=== PATIENT | female | born 1950 | race Caucasian/White ===

== ENCOUNTER → 2016-10-27 | Outpatient (CLI) | payer MEDICARE, OTHER ==
--- NOTE | 2016-10-27 10:10 | XR ---
EXAM TYPE: LUMBAR SPINE X RAY SERIES COMPARISON: 03/20/2010 HISTORY: Sciatica TECHNIQUE: 4 views are submitted. FINDINGS: Alignment is anatomic. The pedicles are intact. The transverse processes are intact. There is no s pondylolysis or spondylolisthesis. There is a minimal anterolisthesis of L3 on L4. There is facet ar thropathy at levels L3-S1. Mild multilevel degenerative disc disease. Endplate deformity of L2 appear s chronic. Slight curvature of the spine. IMPRESSION: 1. Multilevel facet arthropathy and degenerative disc disease. Recommend follow-up MRI. There is a mi nimal anterolisthesis of L3 relative to L4 likely degenerative..
== END | disposition home or self-care (01) ==
LOC: RADXRMAIN 09:38
PROVIDERS: ATTEND Family Medicine
DX: M47.817 Spondylosis without myelopathy or radiculopathy, lumbosacral region (principal); M51.36 Other intervertebral disc degeneration, lumbar region
CPT/HCPCS: 72110

== ENCOUNTER → 2016-12-10 | Outpatient (CLI) | payer MEDICARE, OTHER ==
--- NOTE | 2016-12-10 14:25 | MR ---
EXAMINATION TYPE: MR lumbar spine wo con DATE OF EXAM: 12/10/2016 1:38 PM COMPARISON: NONE HISTORY: 58-year-old female LBP, right hip pain, fell 3 weeks ago TECHNIQUE: Multiplanar, multisequence images of the lumbar spine were acquired. FINDINGS: Vertebral body heights are preserved and alignment is maintained. Mild heterogeneity of marrow signal without suspicious bone marrow replacement. There is minimal fatt y Modic type II endplate change towards the left anteriorly at T12-L1. Conus medullaris is normal. There is variable disc desiccation throughout with bulging discs in the mid to lower lumbar spine. A tiny posterior annular fissure central, right paracentral location at L4-L5. There is some ligamentum flavum thickening in the lower lumbar spine with facet arthropathy. At T12-L1, no canal or foraminal stenosis. At L1-L2, no canal or foraminal stenosis. At L2-L3, mild facet degenerative change without canal or foraminal stenosis. At L3-L4, there is facet degenerative change, ligamentum flavum thickening, a 5 mm ligamentum flavum cyst on the left, and mild diffuse disc bulge. Changes result in mild left neuroforaminal stenosis wi thout significant spinal canal stenosis. At L4-L5, ligamentum flavum thickening with facet arthropathy and bulging disc. There is mild ventral impression on the thecal sac without significant spinal canal stenosis. There is mild right greater than left neuroforaminal stenosis. At L5-S1, facet degenerative change and bulging disc. No significant canal or foraminal stenosis. No prevertebral or paravertebral soft tissue abnormality. 1.8 cm benign cyst posterior right kidney. IMPRESSION: 1. Mild multilevel degenerative disc disease. There is variable disc desiccation and disc bulging saleem ecially in the mid to lower lumbar spine. Tiny posterior annular fissure at L4-L5. 2. Additional facet arthropathy lower lumbar spine with ligamentum flavum thickening. 3. There is no focal disc herniation or significant spinal canal stenosis. 4. Mild left neuroforaminal stenosis at L3-L4 and mild bilateral, right greater than left, neuroforam inal stenosis at L4-L5.
== END | disposition home or self-care (01) ==
LOC: RADMRIMAIN 12:54
PROVIDERS: ATTEND Family Medicine
DX: M99.73 Connective tissue and disc stenosis of intervertebral foramina of lumbar region (principal); M51.27 Other intervertebral disc displacement, lumbosacral region; M51.36 Other intervertebral disc degeneration, lumbar region; M46.96 Unspecified inflammatory spondylopathy, lumbar region; M24.28 Disorder of ligament, vertebrae
CPT/HCPCS: 72148

== ENCOUNTER → 2017-05-19 | Outpatient (CLI) | payer MEDICARE, OTHER ==
--- NOTE | 2017-05-19 13:22 | US ---
EXAMINATION TYPE: US kidneys/renal and bladder DATE OF EXAM: 05/19/2017 COMPARISON: NONE CLINICAL HISTORY: R32 Urinary incontinence. EXAM MEASUREMENTS: Right Kidney: 11.2 x 3.9 x 4.5 cm Left Kidney: 10.8 x 4.6 x 4.7 cm Post Void Residual Volume: 43 mL incidental left lobe liver cyst 0.8 x 0.7 x 0.8 cm Right Kidney: small posterior cyst 1.1 x 1.1 x 1.3 cm Left Kidney: No hydronephrosis or masses seen Bladder: wnl Bilateral Jets seen: rt Normal Post Void Residual: Yes There is no evidence for hydronephrosis at this point in time. No nephrolithiasis is seen. No hugo s are identified. The urinary bladder is anechoic. Bilateral ureteral jets are seen. IMPRESSION: 1. No evidence of hydronephrosis or nephrolithiasis. Normal post void urinary bladder residual 43 mL. 2. Simple appearing hepatic cyst and renal cyst.
== END | disposition home or self-care (01) ==
LOC: RADUSWWP 12:38
PROVIDERS: ATTEND Family Medicine
DX: R32 Unspecified urinary incontinence (principal)
CPT/HCPCS: 76770

== ENCOUNTER → 2017-12-26 | Outpatient (CLI) | payer MEDICARE, OTHER ==
--- NOTE | 2017-12-26 15:25 | BD ---
EXAMINATION TYPE: Axial Bone Density DATE OF EXAM: 12/26/2017 COMPARISON: NONE CLINICAL HISTORY: post menopausal Height: 4'11 Weight: 148 FRAX RISK QUESTIONS: Family History (Parent hip fracture): y Secondary Osteoporosis: Current Tobacco Use: y RISK FACTORS HISTORY OF: Postmenopausal woman: MEDICATIONS: Thyroid Medications: Which medication: Levothyroxine How Lon years Additional Medications: cholesterol, bipolar, benzopene Additional History: EXAM MEASUREMENTS: Bone mineral densitometry was performed using the [employer] System. Bone mineral density as measured about the Lumbar spine is: ----- L1-L4(G/cm2): 0.886 T Score Values are as follows: ----- L2: -3.2 ----- L3: -2.6 ----- L4: -1.6 ----- L1-L4: -2.4 Bone mineral density about the R hip (g/cm2): 0.752 Bone mineral density about the L hip (g/cm2): 0.751 T Score values are as follows: -----R Neck: -2.1 -----L Neck: -2.1 -----R Total: -1.7 -----L Total: -2.0 IMPRESSION: Osteopenia in the lumbar spine (T Score between -2.5 and -1). There is slightly increased risk of fracture and the patient may be considered for treatment. Re-Screen 2-5 years. NOTE: T-SCORE=SD OF THE YOUNG ADULT MEAN.
== END | disposition home or self-care (01) ==
LOC: RADBDWWP 13:08
PROVIDERS: ATTEND Family Medicine
DX: M85.88 Other specified disorders of bone density and structure, other site (principal); Z78.0 Asymptomatic menopausal state
CPT/HCPCS: 77080

== ENCOUNTER 2018-05-28 12:24 | Inpatient (IN) | payer MEDICARE, OTHER ==
[2018-05-28] MEDS ORDERED: IPRATROPIUM-ALBUTEROL 3 ML NEB INHALATION STA (12:57)
[2018-05-28] MEDS ORDERED: methylPREDNISolone SOD SUCCI 125 MG/2 ML VIAL IV STA (12:57)
--- NOTE | 2018-05-28 13:33 | ED ---
General Adult HPI - General Chief complaint: Shortness of Breath Stated complaint: SOB from [facility] Time Seen by Provider: 05/28/18 12:34 Source: patient, RN notes reviewed, old records reviewed Mode of arrival: wheelchair Limitations: no limitations - History of Present Illness Initial comments: This is a 67-year-old female sent emergency Department chief complaint shortness of breath. She has been sick for 1 week. Patient states that she's had a cough, shortness of breath. She does have COPD. Patient states that she was seen at [facility] and sent here. She did have an x-ray but does not know the results. Patient states that her was sick with some symptoms was treated with antibiotics and steroids and has improved. Patient denies any chest pain. Patient has a nausea vomiting diarrhea constipation. - Related Data Home Medications Medication Instructions Recorded Confirmed Benztropine Mesylate 1 mg PO TID PRN 05/10/17 05/28/18 Divalproex Sodium [Depakote] 1,000 mg PO HS 05/10/17 05/28/18 LORazepam [Ativan] 1 mg PO HS 05/10/17 05/28/18 Simvastatin [Zocor] 20 mg PO HS 05/10/17 05/28/18 Vit C/E/Zn/Coppr/Lutein/Zeaxan 1 cap PO BID 05/10/17 05/28/18 [Preservision Areds 2 Softgel] ARIPiprazole [Abilify] 10 mg PO HS 05/28/18 05/28/18 Aspirin EC [Ecotrin Low Dose] 81 mg PO DAILY 05/28/18 05/28/18 Calcium Carbonate [Calcium] 600 mg PO DAILY 05/28/18 05/28/18 Cholecalciferol [Vitamin D3] 5,000 unit PO DAILY 05/28/18 05/28/18 Allergies Allergy/AdvReac Type Severity Reaction Status Date / Time azithromycin [From Zithromax] Allergy Rash/Hives Verified 05/28/18 13:20 codeine Allergy Unknown Verified 05/28/18 13:15 diphenhydramine Allergy Confusion Verified 05/28/18 13:15 [From Benadryl] erythromycin base Allergy Rash/Hives Verified 05/28/18 13:15 sodium Allergy Unknown Verified 05/28/18 13:15 Review of Systems ROS Statement: Those systems with pertinent positive or pertinent negative responses have been documented in the HPI. ROS Other: All systems not noted in ROS Statement are negative. Past Medical History Past Medical History: Hyperlipidemia, Thyroid Disorder History of Any Multi-Drug Resistant Organisms: None Reported Past Surgical History: Appendectomy, Hysterectomy Past Psychological History: Anxiety, Bipolar, Depression Smoking Status: Current every day smoker Past Alcohol Use History: None Reported Past Drug Use History: None Reported General Exam Limitations: no limitations General appearance: alert, in no apparent distress Head exam: Present: atraumatic, normocephalic, normal inspection Eye exam: Present: normal appearance, PERRL, EOMI. Absent: scleral icterus, conjunctival injection, periorbital swelling ENT exam: Present: normal exam, normal oropharynx, mucous membranes moist, TM's normal bilaterally, normal external ear exam Neck exam: Present: normal inspection. Absent: tenderness, meningismus, lymphadenopathy Respiratory exam: Present: wheezes, decreased breath sounds. Absent: normal lung sounds bilaterally, respiratory distress, rales, rhonchi, stridor Cardiovascular Exam: Present: regular rate, normal rhythm, normal heart sounds. Absent: systolic murmur, diastolic murmur, rubs, gallop, clicks Neurological exam: Present: alert, oriented X3, CN II-XII intact, reflexes normal. Absent: motor sensory deficit Skin exam: Present: warm, dry, intact, normal color. Absent: rash Course Vital Signs 05/28/18 05/28/18 05/28/18 12:26 13:36 13:49 Temperature 98.5 F Pulse Rate 73 78 84 Respiratory 18 Rate Blood Pressure 108/69 O2 Sat by Pulse 94 L Oximetry EKG Findings - EKG Comments: EKG Findings:: EKG performed at 13:51 normal sinus rhythm with rate 80 WV 138 QRS 90 QT/QTC 376/433 Medical Decision Making - Lab Data Result diagrams: 05/28/18 13:35 Lab Results 05/28/18 05/28/18 05/28/18 Range/Units 13:35 13:35 13:35 PT 10.7 (9.0-12.0) sec INR 1.1 (<1.2) APTT 22.4 (22.0-30.0) sec Sodium 139 (137-145) mmol/L Potassium 3.9 (3.5-5.1) mmol/L Chloride 103 (98-107) mmol/L Carbon Dioxide 27 (22-30) mmol/L Anion Gap 9 mmol/L BUN 14 (7-17) mg/dL Creatinine 0.58 (0.52-1.04) mg/dL Est GFR (CKD-EPI)AfAm >90 (>60 ml/min/1.73 sqM) Est GFR (CKD-EPI)NonAf >90 (>60 ml/min/1.73 sqM) Glucose 90 (74-99) mg/dL Calcium 9.3 (8.4-10.2) mg/dL Magnesium 2.1 (1.6-2.3) mg/dL Total Bilirubin 0.4 (0.2-1.3) mg/dL AST 23 (14-36) U/L ALT 36 (9-52) U/L Alkaline Phosphatase 49 (38-126) U/L Total Creatine Kinase 56 (30-135) U/L CK-MB (CK-2) 1.4 (0.0-2.4) ng/mL CK-MB (CK-2) Rel Index 2.5 Troponin I <0.012 (0.000-0.034) ng/mL Total Protein 6.2 L (6.3-8.2) g/dL Albumin 3.4 L (3.5-5.0) g/dL Disposition Clinical Impression: Bilateral pneumonia, COPD (chronic obstructive pulmonary disease) Disposition: ADMITTED IP TO THIS HOSP Condition: Fair Referrals: None,Stated [Primary Care Provider] - 1-2 days
[2018-05-28 14:14] LABS: INR 1.1 (<1.2); Partial Thromboplastin Time 22.4 sec (22.0-30.0); Prothrombin Time 10.7 sec (9.0-12.0)
[2018-05-28 14:16] LABS: ALT 36 U/L (9-52); AST 23 U/L (14-36); Albumin 3.4 g/dL (3.5-5.0); Alkaline Phosphatase 49 U/L (38-126); Anion Gap 9 mmol/L; Blood Urea Nitrogen 14 mg/dL (7-17); Calcium 9.3 mg/dL (8.4-10.2); Carbon Dioxide 27 mmol/L (22-30); Chloride 103 mmol/L (98-107); Glucose 90 mg/dL (74-99); Magnesium 2.1 mg/dL (1.6-2.3); Potassium 3.9 mmol/L (3.5-5.1); Sodium 139 mmol/L (137-145); Total Bilirubin 0.4 mg/dL (0.2-1.3); Total Protein 6.2 g/dL (6.3-8.2)
--- NOTE | 2018-05-28 14:24 | XR ---
EXAMINATION TYPE: XR chest 2V DATE OF EXAM: 05/28/2018 COMPARISON: 05/10/2017 HISTORY: Cough TECHNIQUE: Frontal and lateral views of the chest are obtained. FINDINGS: There is patchy interstitial linear infiltrate in the lower lung wall. There is no heart failure. Heart size is normal. There is slight blunting of the costophrenic angles. IMPRESSION: Increasing interstitial infiltrates and atelectasis at the lung bases compared to last e xam. Small pleural effusions appear new. No heart failure.
[2018-05-28 14:25] LABS: Creatine Kinase 56 U/L (30-135)
[2018-05-28 14:39] LABS: Creatine Kinase MB 1.4 ng/mL (0.0-2.4); Troponin I <0.012 ng/mL (0.000-0.034)
[2018-05-28] MEDS ORDERED: LEVOFLOXACIN 750MG-D5W PMX 750 MG in DEXTROSE/WATER 1 150ML.BAG IVPB STA (14:56)
[2018-05-28] MEDS ORDERED: ALBUTEROL NEBULIZED 2.5 MG/3 ML INHALATION PRN (14:57)
[2018-05-28] MEDS ORDERED: PNEUMONIA PROTOCOL UTILIZED 1 EACH MISC PO PRN (14:57)
[2018-05-28 16:46] VITALS: BMI 28.4
[2018-05-28 16:55] LABS: Glucose,Whole Blood 204 mg/dL (75-99)
--- NOTE | 2018-05-28 17:46 | P.HPIM ---
History of Present Illness H&P Date: 05/28/18 Chief Complaint: Shortness of breath and cough Ms. Grider is a 67-year-old female with a past medical history of hypertension , hyperlipidemia, COPD, thyroid disorder, bipolar disorder, anxiety coming into the hospital with a chief complaint of cough and difficulty in breathing ongoing for the past 4 days. Patient states that she has been feeling hot and cold for the past 3-4 days on and off. She complains of increased cough with increased sputum and difficulty in breathing. Patient has history of frequent urinary tract infections in the past and she noticed change in the color of her urine 3 days back. She states it was pink in color and had increased frequency of urination. Patient has been taking Macrobid at home. This morning patient was having more difficulty in breathing and felt like she had a fever so went to get checked out in the clinic and they suggested her to go to the ER. In the ER patient had a chest x-ray showing bilateral infiltrates and she has been admitted for pneumonia and further management. Patient denies having any chest pain. No palpitations. No loss of consciousness. No headaches or blurring of vision. No focal weakness. No seizure-like activity. She denies having any abdominal pain nausea vomiting or diarrhea. Review of Systems REVIEW OF SYSTEMS: CONSTITUTIONAL: Fever with some chills PSYCH: Positive for history of bipolar disorder and anxiety NEURO:No c/o weakness of the extremties, No facial droop, No speech abnormalities. VASCULAR: Peripheral nervous system within the normal limits no edema HEMATOLOGIC: No history of easy bleeding and bruising . No recent infections . RESPIRATORY: As per HPI IMMUNE: No infections INTEGUMENT: no rashes OPHTHALMOLOGIC: No blurry vision and no eye discharge : No dysuria or hematuria COUNTERPERSON: No bleeding PV CARDIAC: No chest pain , paroxysmal nocturnal dyspnea or orthopnea MUSCULOSKELETAL : No Aches or pains in the joints or muscles. GI: No abdominal pain, Nausea or vomiting. No constipation or diarrhea. 13 review of systems are negative except for the ones mentioned above. Past Medical History Past Medical History: COPD, Hyperlipidemia, Thyroid Disorder Additional Past Medical History / Comment(s): IBS History of Any Multi-Drug Resistant Organisms: None Reported Past Surgical History: Appendectomy, Hysterectomy Past Psychological History: Anxiety, Bipolar, Depression Smoking Status: Current every day smoker Past Alcohol Use History: None Reported Past Drug Use History: None Reported - Past Family History Father Family Medical History: Pulmonary Embolus Additional Family Medical History / Comment(s): at age of 40 in [place] Mother Family Medical History: Dementia Additional Family Medical History / Comment(s): at age 87, possible breast CA. Sister(s) Family Medical History: Cancer Additional Family Medical History / Comment(s): at age 73 of leukemia; other sister has had brain surgery and migraines; other sister has IBS and thyroid disorder. Brother(s) Family Medical History: Diabetes Mellitus Additional Family Medical History / Comment(s): other brother has DM as well. Medications and Allergies Home Medications Medication Instructions Recorded Confirmed Type Divalproex Sodium [Depakote] 1,000 mg PO HS 05/10/17 05/28/18 History RX: Benztropine Mesylate 1 mg PO TID PRN 05/10/17 05/28/18 History RX: LORazepam [Ativan] 1 mg PO HS 05/10/17 05/28/18 History Simvastatin [Zocor] 20 mg PO HS 05/10/17 05/28/18 History Vit C/E/Zn/Coppr/Lutein/Zeaxan 1 cap PO BID 05/10/17 05/28/18 History [Preservision Areds 2 Softgel] ARIPiprazole [Abilify] 10 mg PO HS 05/28/18 05/28/18 History Aspirin EC [Ecotrin Low Dose] 81 mg PO DAILY 05/28/18 05/28/18 History Calcium Carbonate [Calcium] 600 mg PO DAILY 05/28/18 05/28/18 History Cholecalciferol [Vitamin D3] 5,000 unit PO DAILY 05/28/18 05/28/18 History Allergies Allergy/AdvReac Type Severity Reaction Status Date / Time azithromycin [From Zithromax] Allergy Rash/Hives Verified 05/28/18 13:20 codeine Allergy Unknown Verified 05/28/18 13:15 diphenhydramine Allergy Confusion Verified 05/28/18 13:15 [From Benadryl] erythromycin base Allergy Rash/Hives Verified 05/28/18 13:15 sodium Allergy Unknown Verified 05/28/18 13:15 Physical Exam Vitals: Vital Signs Temp Pulse Pulse Resp BP BP Pulse Ox 05/28/18 16:40 98.7 F 87 16 106/65 92 L 05/28/18 15:45 82 18 116/70 95 05/28/18 14:57 87 16 92 L 05/28/18 14:00 86 16 106/62 95 05/28/18 13:49 84 05/28/18 13:36 78 05/28/18 12:26 98.5 F 73 18 108/69 94 L Intake and Output 05/28/18 05/28/18 05/28/18 06:59 14:59 22:59 Other: Weight 67.132 kg 67.132 kg GEN. APPEARANCE: alert, in no apparent distress HEAD EXAM: atraumatic, normocephalic, normal inspection EYE EXAM: No pallor or icterus ENT EXAM: normal exam, mucous membranes moist NECK EXAM: No thyromegaly or lymphadenopathy RESPIRATORY EXAM: Coarse breath sounds in all lung wall. No wheezing. CARDIOVASCULAR EXAM: regular rate, normal rhythm, normal heart sounds. Absent : systolic murmur, diastolic murmur, rubs, gallop, clicks GI/ABDOMINAL EXAM: soft, normal bowel sounds. Absent: distended, tenderness, guarding, rebound, rigid EXTREMITIES EXAM: normal inspection, full ROM, normal capillary refill. Absent : tenderness, pedal edema, joint swelling, calf tenderness NEUROLOGICAL EXAM: alert, oriented X3, no focal neurological deficits PSYCHIATRIC EXAM: normal affect, normal mood SKIN EXAM: warm, dry, intact, normal color. Absent: rash Results CBC & Chem 7: 05/28/18 13:35 Labs: Abnormal Lab Results - Last 24 Hours (Table) 05/28/18 05/28/18 Range/Units 13:35 16:53 POC Glucose (mg/dL) 204 H (75-99) mg/dL Total Protein 6.2 L (6.3-8.2) g/dL Albumin 3.4 L (3.5-5.0) g/dL Thrombosis Risk Factor Assmnt - Choose All That Apply Each Factor Represents 1 point: Abnormal pulmonary function (COPD) Other Risk Factors: Yes Each Risk Factor Represents 2 Points: Age 61-74 years Other congenital or acquired thrombophilia - If yes, enter type in comment: No Thrombosis Risk Factor Assessment Total Risk Factor Score: 3 Thrombosis Risk Factor Assessment Level: Moderate Risk Assessment and Plan Assessment: ASSESSMENT Bilateral pneumonia Acute exacerbation of COPD -secondary to above Possible urinary tract infection Hypertension Hyperlipidemia Thyroid disorder Anxiety with depression Bipolar disorder PLAN: Patient has been started on IV levofloxacin which will be continued as it will cover both have pneumonia and UTI. Breathing treatments ordered. Awaiting sputum cultures. As the patient did not have a CBC done in the ER and will check it. Patient resumed on her home medications. The treatment plan was discussed with the patient and her daughter at the bedside in detail. Further recommendations to follow depending on the progress of the patient.
[2018-05-28] MEDS: HEPARIN SODIUM,PORCINE 5,000 UNIT/ML 1 ML VIAL SQ SCH ×2 (18:06→23:37)
[2018-05-28] MEDS: VIT A,C & E-LUTEIN-MINERALS 1 EACH TAB PO SCH (18:06)
[2018-05-28] MEDS: INSULIN ASPART 100 UNIT/ML 1 ML 10 ML VIAL SQ SCH ×2 (18:07→21:16)
[2018-05-28 18:17] LABS: Basophils % (A) 0 %; Eosinophils # (A) 0.2 k/uL (0-0.7); Eosinophils % (A) 3 %; HCT 35.5 % (34.0-46.0); HGB 11.9 gm/dL (11.4-16.0); Lymphocytes # (A) 0.7 k/uL (1.0-4.8); Lymphocytes % (A) 8 %; MCH 31.3 pg (25.0-35.0); MCHC 33.5 g/dL (31.0-37.0); MCV 93.6 fL (80.0-100.0); Mean Platelet Volume 7.7; Monocytes # (A) 0.2 k/uL (0-1.0); Monocytes % (A) 3 %; Neutrophils # (A) 6.6 k/uL (1.3-7.7); Neutrophils % (A) 85 %; Platelet Count 210 k/uL (150-450); RBC 3.79 m/uL (3.80-5.40); RDW 12.9 % (11.5-15.5); WBC 7.8 k/uL (3.8-10.6)
[2018-05-28 19:35] LABS: Appearance,Urine Clear (Clear); Bilirubin,Urine Negative (Negative); Blood,Urine Negative (Negative); Color,Urine Yellow; Glucose,Urine (UA) 1+ (Negative); Ketones,Urine 1+ (Negative); Leukocyte Esterase,Urine Negative (Negative); Nitrite,Urine Negative (Negative); PH, Urine 5.5 (5.0-8.0); Protein,Urine Negative (Negative); Specific Gravity,Urine 1.009 (1.001-1.035); Urobilinogen,Urine <2.0 mg/dL (<2.0)
[2018-05-28] MEDS: ATORVASTATIN 10 MG TAB PO SCH (21:16)
[2018-05-28] MEDS: LORazepam 1 MG TAB PO SCH (21:16)
[2018-05-28] MEDS: DIVALPROEX 500 MG TABLET.DR PO SCH (21:16)
[2018-05-28] MEDS: ARIPiprazole 10 MG TAB PO SCH (21:16)
[2018-05-28 21:19] LABS: Glucose,Whole Blood 201 mg/dL (75-99)
[2018-05-29 07:13] LABS: Glucose,Whole Blood 214 mg/dL (75-99)
--- NOTE | 2018-05-29 08:11 | XR ---
EXAMINATION TYPE: XR chest 2V DATE OF EXAM: 05/29/2018 COMPARISON: 05/28/2018 HISTORY: 67-year-old female follow-up pneumonia TECHNIQUE: Frontal and lateral views FINDINGS: Heart normal size. Atherosclerotic arch calcifications. Strandy lower lung opacities on the right lik julissa atelectasis. Patchy opacity at the left base is increasing. Trace pleural effusions. IMPRESSION: Increasing consolidation left base suspicious for pneumonia. Trace pleural effusions persist. Opacity at the right base is more strandy suggesting atelectasis.
[2018-05-29] MEDS: VIT A,C & E-LUTEIN-MINERALS 1 EACH TAB PO SCH ×3 (08:20→12:18)
[2018-05-29] MEDS: INSULIN ASPART 100 UNIT/ML 1 ML 10 ML VIAL SQ SCH ×4 (08:20→21:47)
[2018-05-29] MEDS: ASPIRIN 81 MG PO SCH (08:20)
[2018-05-29] MEDS: HEPARIN SODIUM,PORCINE 5,000 UNIT/ML 1 ML VIAL SQ SCH ×3 (08:20→23:45)
[2018-05-29] MEDS ORDERED: CALCIUM CARBONATE 500 MG CHEWABLE PO SCH (09:00)
[2018-05-29] MEDS ORDERED: CHOLECALCIFEROL 1,000 UNIT TAB PO SCH (09:00)
[2018-05-29] MEDS: LEVOTHYROXINE 100 MCG TAB PO SCH (10:38)
[2018-05-29 12:11] LABS: Glucose,Whole Blood 104 mg/dL (75-99)
[2018-05-29 13:41] LABS: Hemoglobin A1C 5.5 % (4.0-6.0)
[2018-05-29] MEDS: IPRATROPIUM-ALBUTEROL 3 ML NEB INHALATION PRN ×2 (14:02→20:06)
--- NOTE | 2018-05-29 14:11 | P.PN ---
Subjective Progress Note Date: 05/29/18 Principal diagnosis: Pneumonia Ms. Grider is a 67-year-old female with a past medical history of hypertension , hyperlipidemia, COPD, thyroid disorder, bipolar disorder, anxiety coming into the hospital with a chief complaint of cough and difficulty in breathing ongoing for the past 4 days. Patient states that she has been feeling hot and cold for the past 3-4 days on and off. She complains of increased cough with increased sputum and difficulty in breathing. Patient has history of frequent urinary tract infections in the past and she noticed change in the color of her urine 3 days back. She states it was pink in color and had increased frequency of urination. Patient has been taking Macrobid at home. This morning patient was having more difficulty in breathing and felt like she had a fever so went to get checked out in the clinic and they suggested her to go to the ER. In the ER patient had a chest x-ray showing bilateral infiltrates and she has been admitted for pneumonia and further management. The patient is sitting up in the bed appears to be no acute distress. Patient states that her difficulty in breathing has improved. But she still complains of persistent cough. We did get a sputum culture that is pending. Patient states that she does not have urgency and an insulin sensation when she is urinating currently. On review of systems - Constitutional -Patient denies having any fevers chills or rigors. Cardiovascular-no chest pain or palpitations Respiratory-difficulty in breathing improving ,still has cough GI-PNo abdominal pain nausea vomiting or diarrhea. Objective - Vital Signs Vital signs: Vital Signs Temp 98.6 F 05/29/18 07:00 Pulse 70 05/29/18 14:04 Resp 20 05/29/18 10:55 BP 128/63 05/29/18 10:55 Pulse Ox 93 L 05/29/18 10:55 Intake & Output 05/28/18 05/29/18 05/29/18 18:59 06:59 18:59 Intake Total 725 Balance 725 Weight 67.132 kg Intake: Oral 725 Other: # Voids 2 - Exam GEN. APPEARANCE: alert, in no apparent distress HEAD EXAM: atraumatic, normocephalic, normal inspection EYE EXAM: No pallor or icterus ENT EXAM: normal exam, mucous membranes moist NECK EXAM: No thyromegaly or lymphadenopathy RESPIRATORY EXAM: Coarse breath sounds in all lung wall. No wheezing. CARDIOVASCULAR EXAM: S1-S2 heard nausea and sounds GI/ABDOMINAL EXAM: Soft, nontender, no guarding or HTT. Bowel sounds positive EXTREMITIES EXAM: No peripheral edema NEUROLOGICAL EXAM: alert, oriented X3, no focal neurological deficits PSYCHIATRIC EXAM: normal affect, normal mood SKIN EXAM: warm, dry, intact, normal color. Absent: rash - Labs CBC & Chem 7: 05/28/18 17:51 05/28/18 13:35 Labs: Abnormal Lab Results - Last 24 Hours (Table) 05/28/18 05/28/18 05/28/18 Range/Units 13:35 16:53 17:51 RBC 3.79 L (3.80-5.40) m/uL Lymphocytes # 0.7 L (1.0-4.8) k/uL POC Glucose (mg/dL) 204 H (75-99) mg/dL Total Protein 6.2 L (6.3-8.2) g/dL Albumin 3.4 L (3.5-5.0) g/dL Urine Glucose (UA) (Negative) Urine Ketones (Negative) 05/28/18 05/28/18 05/29/18 Range/Units 19:15 21:10 07:10 RBC (3.80-5.40) m/uL Lymphocytes # (1.0-4.8) k/uL POC Glucose (mg/dL) 201 H 214 H (75-99) mg/dL Total Protein (6.3-8.2) g/dL Albumin (3.5-5.0) g/dL Urine Glucose (UA) 1+ H (Negative) Urine Ketones 1+ H (Negative) 05/29/18 Range/Units 12:05 RBC (3.80-5.40) m/uL Lymphocytes # (1.0-4.8) k/uL POC Glucose (mg/dL) 104 H (75-99) mg/dL Total Protein (6.3-8.2) g/dL Albumin (3.5-5.0) g/dL Urine Glucose (UA) (Negative) Urine Ketones (Negative) Assessment and Plan Assessment: ASSESSMENT Bilateral pneumonia Acute exacerbation of COPD -secondary to above Possible urinary tract infection Hypertension Hyperlipidemia Thyroid disorder Anxiety with depression Bipolar disorder PLAN: Patient has been started on IV levofloxacin which will be continued as it will cover both have pneumonia and UTI. Breathing treatments will be continued. Awaiting sputum cultures. Patient resumed on her home medications. Further recommendations to follow depending on the progress of the patient.
[2018-05-29] MEDS ORDERED: LEVOFLOXACIN 750MG-D5W PMX 750 MG in DEXTROSE/WATER 1 150ML.BAG IVPB SCH (16:00)
[2018-05-29 17:04] LABS: Glucose,Whole Blood 115 mg/dL (75-99)
[2018-05-29 21:48] LABS: Glucose,Whole Blood 126 mg/dL (75-99)
[2018-05-29] MEDS: ARIPiprazole 10 MG TAB PO SCH (22:05)
[2018-05-29] MEDS: LORazepam 1 MG TAB PO SCH (22:06)
[2018-05-29] MEDS: DIVALPROEX 500 MG TABLET.DR PO SCH (22:06)
[2018-05-29] MEDS: ATORVASTATIN 10 MG TAB PO SCH (22:06)
[2018-05-30] MEDS: LEVOTHYROXINE 100 MCG TAB PO SCH (06:31)
[2018-05-30] MEDS: IPRATROPIUM-ALBUTEROL 3 ML NEB INHALATION PRN ×3 (07:11→20:35)
[2018-05-30 07:49] LABS: Glucose,Whole Blood 89 mg/dL (75-99)
[2018-05-30] MEDS: INSULIN ASPART 100 UNIT/ML 1 ML 10 ML VIAL SQ SCH ×4 (07:49→21:47)
[2018-05-30] MEDS: ASPIRIN 81 MG PO SCH (07:51)
[2018-05-30] MEDS: HEPARIN SODIUM,PORCINE 5,000 UNIT/ML 1 ML VIAL SQ SCH ×2 (07:51→16:14)
[2018-05-30] MEDS: BENZTROPINE MESYLATE 1 MG TAB PO PRN ×2 (08:37→21:45)
[2018-05-30] MEDS: ACETAMINOPHEN TAB 500 MG TAB PO PRN ×2 (09:43→21:50)
[2018-05-30 11:24] LABS: Anion Gap 8 mmol/L; Blood Urea Nitrogen 8 mg/dL (7-17); Calcium 8.7 mg/dL (8.4-10.2); Carbon Dioxide 24 mmol/L (22-30); Chloride 111 mmol/L (98-107); Glucose 114 mg/dL (74-99); Potassium 3.6 mmol/L (3.5-5.1); Sodium 143 mmol/L (137-145)
[2018-05-30 11:46] LABS: Basophils # (A) 0.1 k/uL (0-0.2); Basophils % (A) 1 %; Eosinophils # (A) 0.7 k/uL (0-0.7); Eosinophils % (A) 7 %; HGB 12.4 gm/dL (11.4-16.0); Lymphocytes % (A) 22 %; MCH 31.1 pg (25.0-35.0); MCHC 32.7 g/dL (31.0-37.0); Mean Platelet Volume 7.5; Monocytes # (A) 0.7 k/uL (0-1.0); Monocytes % (A) 7 %; Neutrophils # (A) 5.8 k/uL (1.3-7.7); Neutrophils % (A) 61 %; Platelet Count 254 k/uL (150-450); RDW 13.1 % (11.5-15.5); WBC 9.5 k/uL (3.8-10.6)
[2018-05-30 12:30] LABS: Glucose,Whole Blood 92 mg/dL (75-99)
[2018-05-30] MEDS: VIT A,C & E-LUTEIN-MINERALS 1 EACH TAB PO SCH ×2 (12:46→21:45)
[2018-05-30] MEDS ORDERED: LEVOFLOXACIN 750MG-D5W PMX 750 MG in DEXTROSE/WATER 1 150ML.BAG IVPB SCH (16:00)
[2018-05-30] MEDS: LEVOFLOXACIN 750 MG TAB PO SCH (16:14)
[2018-05-30 17:18] LABS: Glucose,Whole Blood 136 mg/dL (75-99)
[2018-05-30] MEDS ORDERED: CALCIUM CARBONATE 500 MG CHEWABLE PO SCH (21:00)
[2018-05-30] MEDS ORDERED: CHOLECALCIFEROL 1,000 UNIT TAB PO SCH (21:00)
[2018-05-30 21:04] LABS: Glucose,Whole Blood 128 mg/dL (75-99)
[2018-05-30] MEDS: ATORVASTATIN 10 MG TAB PO SCH (21:45)
[2018-05-30] MEDS: ARIPiprazole 10 MG TAB PO SCH (21:45)
[2018-05-30] MEDS: DIVALPROEX 500 MG TABLET.DR PO SCH (21:46)
[2018-05-30] MEDS: LORazepam 1 MG TAB PO SCH (21:50)
--- NOTE | 2018-05-30 22:54 | P.PN ---
Subjective Progress Note Date: 05/30/18 Principal diagnosis: Pneumonia Ms. Grider is a 67-year-old female with a past medical history of hypertension , hyperlipidemia, COPD, thyroid disorder, bipolar disorder, anxiety coming into the hospital with a chief complaint of cough and difficulty in breathing ongoing for the past 4 days. Patient states that she has been feeling hot and cold for the past 3-4 days on and off. She complains of increased cough with increased sputum and difficulty in breathing. Patient has history of frequent urinary tract infections in the past and she noticed change in the color of her urine 3 days back. She states it was pink in color and had increased frequency of urination. Patient has been taking Macrobid at home. This morning patient was having more difficulty in breathing and felt like she had a fever so went to get checked out in the clinic and they suggested her to go to the ER. In the ER patient had a chest x-ray showing bilateral infiltrates and she has been admitted for pneumonia and further management. On 05/30/18 - The patient is sitting up in the bed appears to be no acute distress. Patient states that her difficulty in breathing is improving as well as her cough. We did get a sputum culture that is pending. On review of systems - Constitutional -Patient denies having any fevers chills or rigors. Cardiovascular-no chest pain or palpitations Respiratory-difficulty in breathing improving ,still has cough GI-PNo abdominal pain nausea vomiting or diarrhea. Objective - Vital Signs Vital signs: Vital Signs Temp 98.4 F 05/30/18 07:04 Pulse 71 05/30/18 11:28 Resp 16 05/30/18 11:28 BP 148/85 05/30/18 07:04 Pulse Ox 90 L 05/30/18 07:14 Intake & Output 05/29/18 05/30/18 05/30/18 18:59 06:59 18:59 Intake Total 450 Balance 450 Intake: Oral 450 Other: # Voids 3 4 - Exam GEN. APPEARANCE: alert, in no apparent distress HEAD EXAM: atraumatic, normocephalic, normal inspection EYE EXAM: No pallor or icterus ENT EXAM: normal exam, mucous membranes moist NECK EXAM: No thyromegaly or lymphadenopathy RESPIRATORY EXAM: Coarse breath sounds in all lung wall. No wheezing. CARDIOVASCULAR EXAM: S1-S2 heard nausea and sounds GI/ABDOMINAL EXAM: Soft, nontender, no guarding . Bowel sounds positive EXTREMITIES EXAM: No peripheral edema NEUROLOGICAL EXAM: alert, oriented X3, no focal neurological deficits PSYCHIATRIC EXAM: normal affect, normal mood SKIN EXAM: warm, dry, intact, normal color. Absent: rash - Labs CBC & Chem 7: 05/30/18 10:50 05/30/18 10:50 Labs: Abnormal Lab Results - Last 24 Hours (Table) 05/29/18 05/29/18 05/29/18 Range/Units 12:05 17:02 21:29 Chloride (98-107) mmol/L Glucose (74-99) mg/dL POC Glucose (mg/dL) 104 H 115 H 126 H (75-99) mg/dL 05/30/18 Range/Units 10:50 Chloride 111 H (98-107) mmol/L Glucose 114 H (74-99) mg/dL POC Glucose (mg/dL) (75-99) mg/dL Microbiology - Last 24 Hours (Table) 05/28/18 17:51 Blood Culture - Preliminary Blood No Growth after 24 hours 05/28/18 18:04 Blood Culture - Preliminary Blood No Growth after 24 hours 05/29/18 09:30 Gram Stain - Preliminary Sputum Sputum Culture - Preliminary 05/28/18 13:35 Blood Culture - Preliminary Blood No Growth after 24 hours 05/28/18 19:15 Urine Culture - Preliminary Urine,Clean Catch Assessment and Plan Assessment: ASSESSMENT Bilateral pneumonia Acute exacerbation of COPD -secondary to above Possible urinary tract infection Hypertension Hyperlipidemia Thyroid disorder Anxiety with depression Bipolar disorder PLAN: Continue with IV levofloxacin pending blood and urine cultures. Breathing treatments will be continued. Patient resumed on her home medications. Further recommendations based on the clinical course.
[2018-05-31] MEDS: HEPARIN SODIUM,PORCINE 5,000 UNIT/ML 1 ML VIAL SQ SCH ×3 (01:14→16:02)
[2018-05-31] MEDS: LEVOTHYROXINE 100 MCG TAB PO SCH (05:22)
[2018-05-31 06:45] LABS: Glucose,Whole Blood 89 mg/dL (75-99)
[2018-05-31] MEDS: IPRATROPIUM-ALBUTEROL 3 ML NEB INHALATION PRN ×2 (07:13→11:21)
[2018-05-31] MEDS: ASPIRIN 81 MG PO SCH (07:35)
[2018-05-31] MEDS: ACETAMINOPHEN TAB 500 MG TAB PO PRN (07:35)
[2018-05-31] MEDS: INSULIN ASPART 100 UNIT/ML 1 ML 10 ML VIAL SQ SCH ×2 (07:35→11:28)
[2018-05-31] MEDS ORDERED: FLUCONAZOLE 100 MG TAB PO ONE (10:28)
--- NOTE | 2018-05-31 10:55 | XR ---
EXAMINATION TYPE: XR chest 1V DATE OF EXAM: 05/31/2018 CLINICAL HISTORY: Difficulty breathing progress study. TECHNIQUE: Single AP portable upright view of the chest is obtained. COMPARISON: Chest x-ray from 2 days earlier and older studies FINDINGS: There is persistent left greater than right bibasilar opacity. Tiny bilateral pleural effu sions are seen better on prior lateral view. Upper lungs remain clear without pneumothorax. Cardiac s ilhouette size is stable and within normal limits with atherosclerotic change in aortic knob. Degener ative change right shoulder glenohumeral joint is present. IMPRESSION: Overall stable findings, left greater than right bibasilar infiltrate and/or atelectasi s redemonstrated with tiny bilateral pleural effusions. No new infiltrate is seen.
[2018-05-31] MEDS: VIT A,C & E-LUTEIN-MINERALS 1 EACH TAB PO SCH (11:28)
[2018-05-31 11:38] LABS: Glucose,Whole Blood 118 mg/dL (75-99)
[2018-05-31] MEDS: LEVOFLOXACIN 750 MG TAB PO SCH (16:02)
[2018-05-31 16:03] VITALS: BP 142/74; PULSE 70; RESP 16; TEMP 98.4
== END 2018-05-31 16:24 | disposition home or self-care (01) | DRG 194 ==
LOC: EC 12:24 → 4MS4W 14:59
PROVIDERS: ADMIT Internal Medicine; ATTEND Internal Medicine
DX: J18.9 Pneumonia, unspecified organism (principal); J44.0 Chronic obstructive pulmonary disease with (acute) lower respiratory infection; J44.1 Chronic obstructive pulmonary disease with (acute) exacerbation; N39.0 Urinary tract infection, site not specified; E07.9 Disorder of thyroid, unspecified; E78.5 Hyperlipidemia, unspecified; F17.210 Nicotine dependence, cigarettes, uncomplicated; F31.9 Bipolar disorder, unspecified; F41.8 Other specified anxiety disorders; I10 Essential (primary) hypertension; K58.9 Irritable bowel syndrome, unspecified; Z80.6 Family history of leukemia; Z83.3 Family history of diabetes mellitus; Z87.440 Personal history of urinary (tract) infections; Z90.710 Acquired absence of both cervix and uterus; Z83.2 Family history of diseases of the blood and blood-forming organs and certain disorders involving the immune mechanism; Z80.3 Family history of malignant neoplasm of breast; Z88.1 Allergy status to other antibiotic agents; Z88.5 Allergy status to narcotic agent; Z88.8 Allergy status to other drugs, medicaments and biological substances; Z79.82 Long term (current) use of aspirin; Z79.899 Other long term (current) drug therapy
CPT/HCPCS: 36415; 71045; 71046; 80048; 80053; 81003; 82550; 82553; 83036; 83735; 84484; 85025; 85610; 85730; 87040; 87070; 87086; 87205; 93005; 94640; 94760; 96374; 99285

== ENCOUNTER → 2018-11-14 | Outpatient (CLI) | payer MEDICARE, OTHER ==
--- NOTE | 2018-11-15 07:25 | US ---
EXAMINATION TYPE: US carotid duplex BILAT DATE OF EXAM: 11/14/2018 COMPARISON: NONE CLINICAL HISTORY: Dizziness R42. EXAM MEASUREMENTS: RIGHT: Peak Systolic Velocity (PSV) cm/sec ----- Right CCA: 58.1 ----- Right ICA: 46.8 ----- Right ECA: 70.4 ICA/CCA ratio: 0.8 RIGHT: End Diastole cm/sec ----- Right CCA: 22.3 ----- Right ICA: 18.2 ----- Right ECA: 18.9 LEFT: Peak Systolic Velocity (PSV) cm/sec ----- Left CCA: 59.0 ----- Left ICA: 80.0 ----- Left ECA: 33.1 ICA/CCA ratio: 1.4 LEFT: End Diastole cm/sec ----- Left CCA: 24.1 ----- Left ICA: 27.6 ----- Left ECA: 8.1 VERTEBRALS (direction of flow): Right Vertebral: Antegrade Left Vertebral: Antegrade Rhythm: Normal No significant stenosis seen. No elevated velocities. IMPRESSION: No significant hemodynamic stenosis as visualized. 2. Intimal thickening and small focal areas of atherosclerotic change. Criteria for Assigning % of Stenosis / Diameter reduction (Estimation based on the indirect measurements of the internal carotid artery velocities (ICA PSV). 1. Normal (no stenosis)=ICA PSV < 125 cm/s: ratio < 2.0: ICA EDV<40 cm/s. 2. Less than 50% stenosis=ICA PSV < 125 cm/s: ratio < 2.0: ICA EDV<40 cm/s. 3. 50 to 69% stenosis=ICA PSV of 125 to 230 cm/s: ration 2.0 ? 4.0: ICA EDV 40-100 cm/s. 4. Greater than 70% stenosis to near occlusion= ICA PSV > 230 cm/s: ratio > 4.0: ICA EDV > 100 cm/s. 5. Near occlusion= ICA PSV velocities may be low or undetectable: variable ratio and ICA EDV. 6. Total occlusion=unable to detect flow.
== END | disposition home or self-care (01) ==
LOC: RADUSWWP 16:32
PROVIDERS: ATTEND Internal Medicine
DX: R42 Dizziness and giddiness (principal); I77.89 Other specified disorders of arteries and arterioles
CPT/HCPCS: 93880

== ENCOUNTER → 2018-12-08 | Outpatient (CLI) | payer MEDICARE, OTHER ==
--- NOTE | 2018-12-09 16:32 | MR ---
EXAMINATION TYPE: MR brain wo con DATE OF EXAM: 12/08/2018 COMPARISON: None HISTORY: Vertigo Standard multiplanar, multisequence MRI departmental protocol Multiplanar, multisequence images of the brain were acquired. Diffusion weighted imaging was performe d. FINDINGS: There is cerebral cortical atrophy. There is no mass effect nor midline shift. There is no sign of intracranial hemorrhage. There is no evidence of cortical infarct. There is thinning of the c orpus callosum. Sella turcica appears normal. The brainstem is intact. On the T2 and FLAIR images there is increased signal in the periventricular white matter along the la teral ventricles predominantly. This is coalescent signal change that measures up to 7 mm in thicknes s. There are some cortical small foci of increased signal in both cerebral hemispheres involving the parietal and temporal lobes and frontal lobes. IMPRESSION: Cerebral atrophy. White matter signal changes could relate to demyelinating disease. Chronic small ve ssel ischemia is also possible.
== END | disposition home or self-care (01) ==
LOC: RADMRIMAIN 20:43
PROVIDERS: ATTEND Psychiatry & Neurology Neurology
DX: G37.9 Demyelinating disease of central nervous system, unspecified (principal); G31.9 Degenerative disease of nervous system, unspecified
CPT/HCPCS: 70551

== ENCOUNTER 2019-06-28 05:07 | Emergency (ER) | payer MEDICARE, OTHER ==
[2019-06-28 05:13] VITALS: RESP 18
--- NOTE | 2019-06-28 05:25 | ED ---
URI HPI - General Chief Complaint: Upper Respiratory Infection Stated Complaint: cough,chest discomfort Time Seen by Provider: 06/28/19 05:24 Source: patient Limitations: no limitations - History of Present Illness Initial Comments: Lidia is a 68-year-old female with a history of COPD who presents the ER today for evaluation of cough. Patient reports that about 6 weeks ago she starts smoking cigarettes again. She states that for the past week she's been having progressively worsening cough and wheeze. She currently doesn't have any albuterol inhalers and she no longer has a nebulizer machine at home. Patient states that tonight she was coughing so she came to the ER for evaluation. She denies any fevers, chills. She reports her cough is dry and nonproductive. She denies any chest pain. She denies any sick contacts. - Related Data Home Medications Medication Instructions Recorded Confirmed Benztropine Mesylate 1 mg PO TID PRN 05/10/17 05/28/18 Divalproex Sodium [Depakote] 1,000 mg PO HS 05/10/17 05/28/18 LORazepam [Ativan] 1 mg PO HS 05/10/17 05/28/18 Simvastatin [Zocor] 20 mg PO HS 05/10/17 05/28/18 Vit C/E/Zn/Coppr/Lutein/Zeaxan 1 cap PO BID 05/10/17 05/28/18 [Preservision Areds 2 Softgel] ARIPiprazole [Abilify] 10 mg PO HS 05/28/18 05/28/18 Aspirin EC [Ecotrin Low Dose] 81 mg PO DAILY 05/28/18 05/28/18 Calcium Carbonate [Calcium] 600 mg PO DAILY 05/28/18 05/28/18 Cholecalciferol [Vitamin D3 (25 5,000 unit PO DAILY 05/28/18 05/28/18 Mcg = 1000 Iu)] Levothyroxine Sodium [Synthroid] 100 mcg PO DAILY 05/29/18 05/29/18 Previous Rx's Medication Instructions Recorded Albuterol Inhaler [Ventolin Hfa 1 - 2 puff INHALATION RT-Q6H PRN 05/31/18 Inhaler] #1 inhaler Levofloxacin [Levaquin] 750 mg PO DAILY@1600 3 Days #3 tab 10/17/18 Albuterol Inhaler [Ventolin Hfa 1 - 2 puff INHALATION RT-Q6H PRN 06/28/19 Inhaler] #1 inhaler predniSONE [Deltasone] 40 mg PO DAILY 5 Days #10 tablet 06/28/19 Allergies Allergy/AdvReac Type Severity Reaction Status Date / Time azithromycin [From Zithromax] Allergy Rash/Hives Verified 05/28/18 13:20 codeine Allergy Unknown Verified 05/28/18 13:15 diphenhydramine Allergy Confusion Verified 05/28/18 13:15 [From Benadryl] erythromycin base Allergy Rash/Hives Verified 05/28/18 13:15 sodium Allergy Unknown Verified 05/28/18 13:15 Review of Systems ROS Statement: Those systems with pertinent positive or pertinent negative responses have been documented in the HPI. ROS Other: All systems not noted in ROS Statement are negative. Past Medical History Past Medical History: COPD, Hyperlipidemia, Thyroid Disorder Additional Past Medical History / Comment(s): IBS History of Any Multi-Drug Resistant Organisms: None Reported Past Surgical History: Appendectomy, Hysterectomy Past Psychological History: Anxiety, Bipolar, Depression Smoking Status: Current every day smoker Past Alcohol Use History: None Reported Past Drug Use History: None Reported - Past Family History Father Family Medical History: Pulmonary Embolus Additional Family Medical History / Comment(s): at age of 40 in [place] Mother Family Medical History: Dementia Additional Family Medical History / Comment(s): at age 87, possible breast CA. Sister(s) Family Medical History: Cancer Additional Family Medical History / Comment(s): at age 73 of leukemia; other sister has had brain surgery and migraines; other sister has IBS and thyroid disorder. Brother(s) Family Medical History: Diabetes Mellitus Additional Family Medical History / Comment(s): other brother has DM as well. General Exam - General Exam Comments Initial Comments: Physical Exam GENERAL: Patient is well-developed and well-nourished. Patient is nontoxic and well-hydrated and is in no distress. HENT: Normocephalic, Atraumatic. EYES: PERRL, EOMI PULMONARY: Expiratory wheezing CARDIOVASCULAR: There is a regular rate and rhythm without any murmurs gallops or rubs. ABDOMEN: Soft and nontender with normal bowel sounds. SKIN: Skin is clear with no lesions or rashes and otherwise unremarkable. : Deferred NEUROLOGIC: Patient is alert and oriented x3. Moving all extremities spontaneously MUSCULOSKELETAL: Normal extremities with adequate strength and full range of motion. No lower extremity swelling or edema. No calf tenderness. PSYCHIATRIC: Normal psychiatric evaluation. Limitations: no limitations Course Vital Signs 06/28/19 06/28/19 06/28/19 05:08 06:09 06:13 Temperature 98.8 F Pulse Rate 75 80 82 Respiratory 18 Rate Blood Pressure 134/89 O2 Sat by Pulse 97 Oximetry 06/28/19 06:25 Temperature 98.2 F Pulse Rate 78 Respiratory 18 Rate Blood Pressure 129/82 O2 Sat by Pulse 98 Oximetry Medical Decision Making - Medical Decision Making The patient was seen and evaluated, history is obtained from patient Patient received a breathing treatment, chest x-ray is negative. Smoking ce ssation was discussed for approximately 5 minutes. Patient will be discharged home with an albuterol inhaler and advised to follow-up with her primary care physician for a prescription for nebulizer. Disposition Clinical Impression: Acute upper respiratory infection, Bronchitis, COPD (chronic obstructive pulmonary disease), Tobacco abuse Disposition: HOME SELF-CARE Condition: Stable Instructions (If sedation given, give patient instructions): Upper Respiratory Infection (ED) Prescriptions: predniSONE [Deltasone] 40 mg PO DAILY 5 Days #10 tablet Albuterol Inhaler [Ventolin Hfa Inhaler] 1 - 2 puff INHALATION RT-Q6H PRN #1 inhaler PRN Reason: Wheezing Is patient prescribed a controlled substance at d/c from ED?: No Referrals: Miesha George MD [Primary Care Provider] - 1-2 days
--- NOTE | 2019-06-28 05:45 | XR ---
EXAM: XR Chest, 2 Views CLINICAL HISTORY: ITS.REASON XR Reason: cough TECHNIQUE: Frontal and lateral views of the chest. COMPARISON: 05/31/18 FINDINGS: Lungs: Trace linear opacities in the bilateral lower lobes. Pleural space: No effusion. Heart: No cardiomegaly. Bones/joints: No acute findings. IMPRESSION: Possible edema versus scarring at the lung bases.
[2019-06-28] MEDS ORDERED: IPRATROPIUM-ALBUTEROL 3 ML NEB INHALATION STA (05:58)
[2019-06-28] MEDS ORDERED: predniSONE 20 MG TAB PO STA (05:58)
[2019-06-28 06:26] VITALS: BP 129/82; PULSE 78; TEMP 98.2
== END 2019-06-28 06:29 | disposition home or self-care (01) ==
LOC: EC 05:07
DX: J44.9 Chronic obstructive pulmonary disease, unspecified (principal); J06.9 Acute upper respiratory infection, unspecified; E78.5 Hyperlipidemia, unspecified; E07.9 Disorder of thyroid, unspecified; K58.9 Irritable bowel syndrome, unspecified; F41.9 Anxiety disorder, unspecified; F31.9 Bipolar disorder, unspecified; F17.210 Nicotine dependence, cigarettes, uncomplicated; Z79.890 Hormone replacement therapy; Z79.51 Long term (current) use of inhaled steroids; Z79.82 Long term (current) use of aspirin; Z79.899 Other long term (current) drug therapy; Z71.6 Tobacco abuse counseling; Z88.1 Allergy status to other antibiotic agents; Z88.5 Allergy status to narcotic agent; Z88.8 Allergy status to other drugs, medicaments and biological substances
CPT/HCPCS: 94640; 71046; 99283; J7512

== ENCOUNTER 2019-07-01 07:12 | Observation (INO) | payer MEDICARE, OTHER ==
[2019-07-01] MEDS ORDERED: ASPIRIN 81 MG PO STA (07:39)
[2019-07-01] MEDS ORDERED: NITROGLYCERIN OINT 1 INCH/GM PACKET TOPICAL STA (07:39)
--- NOTE | 2019-07-01 07:42 | ED ---
General Adult HPI - General Chief complaint: Chest Pain Stated complaint: Chest discomfort Time Seen by Provider: 07/01/19 07:27 Source: patient, RN notes reviewed Mode of arrival: ambulatory Limitations: no limitations - History of Present Illness Initial comments: Patient is a pleasant 68-year-old female presenting to the emergency Department with complaints of chest discomfort. Patient is a very poor historian and has difficulty time providing history. Patient states she has had some chest tightness. Patient originally states it is resolved and later states she still has some. No back pain. No radiation. Patient states she did have some nausea earlier this morning. No dyspnea or diaphoresis. Patient states she was here several days ago with cough and was concerned about getting pneumonia. Patient states she is on steroids right now. Patient is unclear if her sugar may have been lower yesterday however she did not check it. Patient states she was a little bit dizzy yesterday. - Related Data Home Medications Medication Instructions Recorded Confirmed Benztropine Mesylate 1 mg PO TID PRN 05/10/17 05/28/18 Divalproex Sodium [Depakote] 1,000 mg PO HS 05/10/17 05/28/18 LORazepam [Ativan] 1 mg PO HS 05/10/17 05/28/18 Simvastatin [Zocor] 20 mg PO HS 05/10/17 05/28/18 Vit C/E/Zn/Coppr/Lutein/Zeaxan 1 cap PO BID 05/10/17 05/28/18 [Preservision Areds 2 Softgel] ARIPiprazole [Abilify] 10 mg PO HS 05/28/18 05/28/18 Aspirin EC [Ecotrin Low Dose] 81 mg PO DAILY 05/28/18 05/28/18 Calcium Carbonate [Calcium] 600 mg PO DAILY 05/28/18 05/28/18 Cholecalciferol [Vitamin D3 (25 5,000 unit PO DAILY 05/28/18 05/28/18 Mcg = 1000 Iu)] Levothyroxine Sodium [Synthroid] 100 mcg PO DAILY 05/29/18 05/29/18 Previous Rx's Medication Instructions Recorded Albuterol Inhaler [Ventolin Hfa 1 - 2 puff INHALATION RT-Q6H PRN 05/31/18 Inhaler] #1 inhaler Levofloxacin [Levaquin] 750 mg PO DAILY@1600 3 Days #3 tab 10/17/18 Albuterol Inhaler [Ventolin Hfa 1 - 2 puff INHALATION RT-Q6H PRN 06/28/19 Inhaler] #1 inhaler predniSONE [Deltasone] 40 mg PO DAILY 5 Days #10 tablet 06/28/19 Allergies Allergy/AdvReac Type Severity Reaction Status Date / Time azithromycin [From Zithromax] Allergy Rash/Hives Verified 07/01/19 07:25 codeine Allergy Unknown Verified 07/01/19 07:25 diphenhydramine Allergy Confusion Verified 07/01/19 07:25 [From Benadryl] erythromycin base Allergy Rash/Hives Verified 07/01/19 07:25 sodium Allergy Unknown Verified 07/01/19 07:25 Review of Systems ROS Statement: Those systems with pertinent positive or pertinent negative responses have been documented in the HPI. ROS Other: All systems not noted in ROS Statement are negative. Constitutional: Denies: fever Eyes: Denies: eye pain ENT: Denies: ear pain Respiratory: Reports: cough Cardiovascular: Reports: chest pain Endocrine: Denies: fatigue Gastrointestinal: Denies: abdominal pain Genitourinary: Denies: dysuria Musculoskeletal: Denies: back pain Skin: Denies: rash Neurological: Denies: weakness Past Medical History Past Medical History: COPD, Hyperlipidemia, Myocardial Infarction ([place]), Thyroid Disorder Additional Past Medical History / Comment(s): IBS History of Any Multi-Drug Resistant Organisms: None Reported Past Surgical History: Appendectomy, Hysterectomy Past Psychological History: Anxiety, Bipolar, Depression Smoking Status: Current every day smoker Past Alcohol Use History: Rare Past Drug Use History: None Reported - Past Family History Father Family Medical History: Pulmonary Embolus Additional Family Medical History / Comment(s): at age of 40 [place] Mother Family Medical History: Dementia Additional Family Medical History / Comment(s): at age 87, possible breast CA. Sister(s) Family Medical History: Cancer Additional Family Medical History / Comment(s): at age 73 of leukemia; other sister has had brain surgery and migraines; other sister has IBS and thyroid disorder. Brother(s) Family Medical History: Diabetes Mellitus Additional Family Medical History / Comment(s): other brother has DM as well. General Exam Limitations: no limitations General appearance: alert, in no apparent distress Head exam: Present: normocephalic Eye exam: Present: normal appearance Neck exam: Present: normal inspection Respiratory exam: Present: normal lung sounds bilaterally. Absent: chest wall tenderness Cardiovascular Exam: Present: regular rate, normal rhythm Expanded Peripheral pulses: 2+: Radial (R), Radial (L), Dorsalis Pedis (R), Dorsalis Pedi s (L) GI/Abdominal exam: Present: soft. Absent: tenderness Extremities exam: Present: normal inspection. Absent: pedal edema, calf tenderness Neurological exam: Present: alert Psychiatric exam: Present: normal affect, normal mood Skin exam: Present: normal color Course Vital Signs 07/01/19 07/01/19 07/01/19 07:18 07:40 08:00 Temperature 98.7 F Pulse Rate 82 82 Pulse Rate [ 79 Line O Scribe Operator ] Respiratory 18 18 Rate Blood Pressure 142/83 142/83 O2 Sat by Pulse 97 97 Oximetry EKG Findings - EKG Comments: EKG Findings:: Normal sinus rhythm 71. VT 158. QRS 90. QT 398. QTC 432. Left axis. Normal QRS. No acute ST change. Medical Decision Making - Medical Decision Making Patient reevaluated and resting comfortably in bed. Patient updated on results and plan. Dr. George has been paged for admission of his patient. - Lab Data Result diagrams: 07/01/19 07:50 07/01/19 07:50 Lab Results 07/01/19 07/01/19 07/01/19 Range/Units 07:50 07:50 07:50 WBC 11.9 H (3.8-10.6) k/uL RBC 4.43 (3.80-5.40) m/uL Hgb 13.9 (11.4-16.0) gm/dL Hct 41.1 (34.0-46.0) % MCV 92.7 (80.0-100.0) fL MCH 31.4 (25.0-35.0) pg MCHC 33.9 (31.0-37.0) g/dL RDW 13.1 (11.5-15.5) % Plt Count 281 (150-450) k/uL Neutrophils % 53 % Lymphocytes % 36 % Monocytes % 7 % Eosinophils % 2 % Basophils % 1 % Neutrophils # 6.2 (1.3-7.7) k/uL Lymphocytes # 4.3 (1.0-4.8) k/uL Monocytes # 0.8 (0-1.0) k/uL Eosinophils # 0.2 (0-0.7) k/uL Basophils # 0.1 (0-0.2) k/uL PT 9.7 (9.0-12.0) sec INR 0.9 (<1.2) APTT 23.8 (22.0-30.0) sec D-Dimer 0.36 (<0.60) mg/L FEU Sodium 140 (137-145) mmol/L Potassium 4.1 (3.5-5.1) mmol/L Chloride 107 (98-107) mmol/L Carbon Dioxide 26 (22-30) mmol/L Anion Gap 7 mmol/L BUN 22 H (7-17) mg/dL Creatinine 0.54 (0.52-1.04) mg/dL Est GFR (CKD-EPI)AfAm >90 (>60 ml/min/1.73 sqM) Est GFR (CKD-EPI)NonAf >90 (>60 ml/min/1.73 sqM) Glucose 94 (74-99) mg/dL Calcium 9.8 (8.4-10.2) mg/dL Magnesium 2.0 (1.6-2.3) mg/dL Total Bilirubin 0.3 (0.2-1.3) mg/dL AST 19 (14-36) U/L ALT 22 (9-52) U/L Alkaline Phosphatase 71 (38-126) U/L Troponin I (0.000-0.034) ng/mL Total Protein 6.7 (6.3-8.2) g/dL Albumin 3.9 (3.5-5.0) g/dL 07/01/19 Range/Units 07:50 WBC (3.8-10.6) k/uL RBC (3.80-5.40) m/uL Hgb (11.4-16.0) gm/dL Hct (34.0-46.0) % MCV (80.0-100.0) fL MCH (25.0-35.0) pg MCHC (31.0-37.0) g/dL RDW (11.5-15.5) % Plt Count (150-450) k/uL Neutrophils % % Lymphocytes % % Monocytes % % Eosinophils % % Basophils % % Neutrophils # (1.3-7.7) k/uL Lymphocytes # (1.0-4.8) k/uL Monocytes # (0-1.0) k/uL Eosinophils # (0-0.7) k/uL Basophils # (0-0.2) k/uL PT (9.0-12.0) sec INR (<1.2) APTT (22.0-30.0) sec D-Dimer (<0.60) mg/L FEU Sodium (137-145) mmol/L Potassium (3.5-5.1) mmol/L Chloride (98-107) mmol/L Carbon Dioxide (22-30) mmol/L Anion Gap mmol/L BUN (7-17) mg/dL Creatinine (0.52-1.04) mg/dL Est GFR (CKD-EPI)AfAm (>60 ml/min/1.73 sqM) Est GFR (CKD-EPI)NonAf (>60 ml/min/1.73 sqM) Glucose (74-99) mg/dL Calcium (8.4-10.2) mg/dL Magnesium (1.6-2.3) mg/dL Total Bilirubin (0.2-1.3) mg/dL AST (14-36) U/L ALT (9-52) U/L Alkaline Phosphatase (38-126) U/L Troponin I <0.012 (0.000-0.034) ng/mL Total Protein (6.3-8.2) g/dL Albumin (3.5-5.0) g/dL - Radiology Data Radiology results: image reviewed (Chest x-ray question some congestive heart failure.) Disposition Clinical Impression: Chest pain Disposition: ADMITTED IP TO THIS HOSP Is patient prescribed a controlled substance at d/c from ED?: No Referrals: Miesha George MD [Primary Care Provider] - 1-2 days Decision Time: 08:50
[2019-07-01 07:59] LABS: Basophils # (A) 0.1 k/uL (0-0.2); Basophils % (A) 1 %; Eosinophils # (A) 0.2 k/uL (0-0.7); Eosinophils % (A) 2 %; HCT 41.1 % (34.0-46.0); HGB 13.9 gm/dL (11.4-16.0); Lymphocytes # (A) 4.3 k/uL (1.0-4.8); Lymphocytes % (A) 36 %; MCH 31.4 pg (25.0-35.0); MCHC 33.9 g/dL (31.0-37.0); MCV 92.7 fL (80.0-100.0); Mean Platelet Volume 6.4; Monocytes # (A) 0.8 k/uL (0-1.0); Monocytes % (A) 7 %; Neutrophils # (A) 6.2 k/uL (1.3-7.7); Neutrophils % (A) 53 %; Platelet Count 281 k/uL (150-450); RBC 4.43 m/uL (3.80-5.40); RDW 13.1 % (11.5-15.5); WBC 11.9 k/uL (3.8-10.6)
--- NOTE | 2019-07-01 08:12 | XR ---
EXAMINATION TYPE: XR chest 2V DATE OF EXAM: 07/01/2019 HISTORY: Chest Pain. REFERENCE: Previous study dated 06/28/2019. FINDINGS: There is scarring or atelectasis in both lungs. Heart size is within normal limits. There i s mild vascular congestion and subtle edema. I could not exclude trace effusions. IMPRESSION: 1. SUBTLE CHANGES OF CONGESTIVE HEART FAILURE. 2. SCARRING VERSUS ATELECTASIS, BOTH LUNGS.
[2019-07-01 08:14] LABS: D-Dimer 0.36 mg/L FEU (<0.60); INR 0.9 (<1.2); Partial Thromboplastin Time 23.8 sec (22.0-30.0); Prothrombin Time 9.7 sec (9.0-12.0)
[2019-07-01 08:25] LABS: ALT 22 U/L (9-52); AST 19 U/L (14-36); African American GFR (CKD) >90 (>60 ml/min/1.73 sqM); Albumin 3.9 g/dL (3.5-5.0); Alkaline Phosphatase 71 U/L (38-126); Anion Gap 7 mmol/L; Blood Urea Nitrogen 22 mg/dL (7-17); Calcium 9.8 mg/dL (8.4-10.2); Carbon Dioxide 26 mmol/L (22-30); Chloride 107 mmol/L (98-107); Glucose 94 mg/dL (74-99); Non-African American GFR(CKD) >90 (>60 ml/min/1.73 sqM); Potassium 4.1 mmol/L (3.5-5.1); Sodium 140 mmol/L (137-145); Total Bilirubin 0.3 mg/dL (0.2-1.3); Total Protein 6.7 g/dL (6.3-8.2)
[2019-07-01] MEDS ORDERED: NITROGLYCERIN SL TABS 0.4 MG TAB SUBLINGUAL PRN (08:50)
[2019-07-01] MEDS ORDERED: BENZTROPINE MESYLATE 1 MG TAB PO PRN (10:56)
--- NOTE | 2019-07-01 11:18 | P.HPIM ---
History of Present Illness H&P Date: 07/01/19 Chief Complaint: Chest pain Lidia Grider, is a 68-year-old female who presented to [facility] emergency room with a chief complaint of chest pain, patient describes a pressure sensation in the left side of her chest, pain started when she woke up in the morning and lasted that she was treated in the emergency room, duration is about 2-1/2 hours. Patient denies any accompanying symptoms there was no diaphoresis no nausea or vomiting no shortness of breath and no radiation of the pain to the arm or to the neck. Patient stated that 4 days ago she presented to emergency room with upper respiratory infection symptoms she was given a course of prednisone, she has been taking prednisone 40 mg once daily for the last 3 days. Patient also stated that she was admitted with chest pain about 2 years ago at that time she attempted to do a stress test but was unable to walk on the treadmill. She denies ever having cardiac catheterization. Past Medical History Past Medical History: COPD, Hyperlipidemia, Myocardial Infarction ([place]), Thyroid Disorder Additional Past Medical History / Comment(s): IBS History of Any Multi-Drug Resistant Organisms: None Reported Past Surgical History: Appendectomy, Hysterectomy Past Psychological History: Anxiety, Bipolar, Depression Smoking Status: Current every day smoker Past Alcohol Use History: Rare Past Drug Use History: None Reported - Past Family History Father Family Medical History: Pulmonary Embolus Additional Family Medical History / Comment(s): at age of 40 in [place] Mother Family Medical History: Dementia Additional Family Medical History / Comment(s): at age 87, possible breast CA. Sister(s) Family Medical History: Cancer Additional Family Medical History / Comment(s): at age 73 of leukemia; other sister has had brain surgery and migraines; other sister has IBS and thyroid disorder. Brother(s) Family Medical History: Diabetes Mellitus Additional Family Medical History / Comment(s): other brother has DM as well. Medications and Allergies Home Medications Medication Instructions Recorded Confirmed Type Benztropine Mesylate 1 mg PO TID PRN 05/10/17 07/01/19 History Divalproex Sodium [Depakote] 1,000 mg PO HS 05/10/17 07/01/19 History Simvastatin [Zocor] 20 mg PO DAILY 05/10/17 07/01/19 History Vit C/E/Zn/Coppr/Lutein/Zeaxan 1 cap PO BID 05/10/17 07/01/19 History [Preservision Areds 2 Softgel] Aspirin EC [Ecotrin Low Dose] 81 mg PO DAILY 05/28/18 07/01/19 History Calcium Carbonate [Calcium] 600 mg PO DAILY 05/28/18 07/01/19 History Cholecalciferol [Vitamin D3 (25 5,000 unit PO DAILY 05/28/18 07/01/19 History Mcg = 1000 Iu)] Levothyroxine Sodium [Synthroid] 100 mcg PO DAILY 05/29/18 07/01/19 History Albuterol Inhaler [Ventolin Hfa 1 - 2 puff INHALATION RT-Q6H PRN 05/31/18 07/01/19 Rx Inhaler] #1 inhaler predniSONE [Deltasone] 40 mg PO DAILY 5 Days #10 tablet 06/28/19 07/01/19 Rx ARIPiprazole [Abilify] 5 mg PO HS 07/01/19 07/01/19 History Acetaminophen [Tylenol Arthritis] 325 mg PO DAILY PRN 07/01/19 07/01/19 History Allergies Allergy/AdvReac Type Severity Reaction Status Date / Time azithromycin [From Zithromax] Allergy Rash/Hives Verified 07/01/19 09:12 codeine Allergy Unknown Verified 07/01/19 09:12 diphenhydramine Allergy Confusion Verified 07/01/19 09:12 [From Benadryl] erythromycin base Allergy Rash/Hives Verified 07/01/19 09:12 sodium Allergy Unknown Verified 07/01/19 09:12 Physical Exam Vitals: Vital Signs Temp Pulse Pulse Resp BP Pulse Ox 07/01/19 09:00 71 18 110/66 97 07/01/19 08:00 68 18 142/83 97 07/01/19 07:50 71 18 97 07/01/19 07:40 79 07/01/19 07:18 98.7 F 82 18 142/83 97 Intake and Output 06/30/19 07/01/19 07/01/19 22:59 06:59 14:59 Other: Weight 69.173 kg In general patient is alert and oriented 3 in no apparent distress HEENT head normocephalic and atraumatic Neck is supple no JVD no goiter no lymphadenopathy Chest exam reveals a few scattered rhonchi bilaterally no wheezing Cardiac exam reveals regular heart sounds S1 and S2 no gallops no murmurs Abdomen is soft nontender no organomegaly with normal bowel sounds Extremity exam reveals minimal edema no cyanosis or clubbing Neurological examination reveals no gross focal deficit Results CBC & Chem 7: 07/01/19 07:50 07/01/19 07:50 Labs: Abnormal Lab Results - Last 24 Hours (Table) 07/01/19 07/01/19 Range/Units 07:50 07:50 WBC 11.9 H (3.8-10.6) k/uL BUN 22 H (7-17) mg/dL Assessment and Plan Plan: #1 episode of chest pain lasting 2-3 hours now resolved, EKG reveals normal sinus rhythm without any acute ischemic changes, first troponin was negative patient is admitted to telemetry floor cardiology consultation was requested serial EKG and cardiac enzymes are ordered. #2 chest x-ray done in the emergency room reveals subtle changes of congestive heart failure, will check echocardiogram. #3 recent upper respiratory infection, patient was seen in the emergency room and was given prednisone 40 mg daily, patient has improved will taper off prednisone. #4 underlying history of hypothyroidism maintained on Synthroid 100 g daily Will continue current dose and check TSH #5 underlying history of hyperlipidemia #6 underlying history of tobacco abuse patient was counseled in length regarding smoking cessation #7 underlying history of psychiatric illness maintained on Depakote and Abilify and followed by Dr. Gasca psychiatrist. At this time will obtain serial EKGs and cardiac enzymes Will obtain echocardiogram Cardiology consultation was requested Check TSH and lipid profile Resume home medications Taper off prednisone For DVT prophylaxis subcu Lovenox For GI prophylaxis omeprazole. Will follow in a.m. possible discharge in 1-2 days
[2019-07-01 12:01] VITALS: BMI 29.7
[2019-07-01] MEDS: ACETAMINOPHEN TAB 325 MG TAB PO PRN (13:12)
[2019-07-01] MEDS: LEVOTHYROXINE 100 MCG TAB PO SCH (13:13)
[2019-07-01] MEDS: NITROGLYCERIN OINT 1 INCH/GM PACKET TOPICAL SCH ×2 (16:03→17:45)
[2019-07-01] MEDS: predniSONE 20 MG TAB PO SCH (16:06)
[2019-07-01] MEDS ORDERED: ARIPiprazole 5 MG TAB PO SCH (21:00)
[2019-07-01] MEDS ORDERED: DIVALPROEX 500 MG TABLET.DR PO SCH (21:00)
[2019-07-01] MEDS: VIT A,C & E-LUTEIN-MINERALS 1 EACH TAB PO SCH (21:16)
[2019-07-01 23:11] LABS: Cholesterol 134 mg/dL (<200); HDL Cholesterol 54 mg/dL (40-60); LDL Cholesterol,Calculated 56 mg/dL (0-99); Triglycerides 119 mg/dL (<150)
[2019-07-02] MEDS: ACETAMINOPHEN TAB 325 MG TAB PO PRN ×2 (04:02→14:33)
[2019-07-02] MEDS: NITROGLYCERIN OINT 1 INCH/GM PACKET TOPICAL SCH ×2 (04:02→06:32)
[2019-07-02] MEDS: LEVOTHYROXINE 100 MCG TAB PO SCH (06:31)
[2019-07-02] MEDS: VIT A,C & E-LUTEIN-MINERALS 1 EACH TAB PO SCH (08:22)
[2019-07-02] MEDS: predniSONE 20 MG TAB PO SCH (08:22)
[2019-07-02] MEDS ORDERED: CALCIUM CARBONATE 500 MG CHEWABLE PO SCH (09:00)
[2019-07-02] MEDS ORDERED: ATORVASTATIN 10 MG TAB PO SCH (09:00)
[2019-07-02] MEDS ORDERED: CHOLECALCIFEROL 1,000 UNIT TAB PO SCH (09:00)
[2019-07-02] MEDS ORDERED: ASPIRIN 325 MG TAB PO SCH (09:00)
[2019-07-02 09:41] LABS: Basophils # (A) 0.1 k/uL (0-0.2); Basophils % (A) 0 %; Eosinophils # (A) 0.1 k/uL (0-0.7); Eosinophils % (A) 1 %; HCT 40.1 % (34.0-46.0); HGB 13.5 gm/dL (11.4-16.0); Lymphocytes # (A) 3.1 k/uL (1.0-4.8); Lymphocytes % (A) 26 %; MCH 31.3 pg (25.0-35.0); MCHC 33.8 g/dL (31.0-37.0); MCV 92.8 fL (80.0-100.0); Monocytes # (A) 0.6 k/uL (0-1.0); Monocytes % (A) 5 %; Neutrophils % (A) 67 %; Platelet Count 291 k/uL (150-450); RBC 4.32 m/uL (3.80-5.40)
[2019-07-02 09:54] LABS: ALT 17 U/L (9-52); AST 18 U/L (14-36); African American GFR (CKD) >90 (>60 ml/min/1.73 sqM); Albumin 3.8 g/dL (3.5-5.0); Alkaline Phosphatase 63 U/L (38-126); Anion Gap 10 mmol/L; Blood Urea Nitrogen 16 mg/dL (7-17); Calcium 9.7 mg/dL (8.4-10.2); Carbon Dioxide 22 mmol/L (22-30); Chloride 105 mmol/L (98-107); Glucose 133 mg/dL (74-99); Non-African American GFR(CKD) >90 (>60 ml/min/1.73 sqM); Potassium 4.5 mmol/L (3.5-5.1); Sodium 137 mmol/L (137-145); Total Bilirubin 0.3 mg/dL (0.2-1.3); Total Protein 6.6 g/dL (6.3-8.2)
[2019-07-02 10:10] VITALS: RESP 16; TEMP 96.1
--- NOTE | 2019-07-02 10:41 | ECHOF ---
Referral Reason:Chest pain, evaluate for CHF MEASUREMENTS -------- HEIGHT: 152.4 cm WEIGHT: 69.9 kg BP: 112/59 RVIDd: 2.8 cm (< 3.3) IVSd: 1.2 cm (0.6 - 1.1) LVIDd: 4.2 cm (3.9 - 5.3) LVPWd: 1.2 cm (0.6 - 1.1) IVSs: 1.7 cm LVIDs: 2.7 cm LVPWs: 1.6 cm LA Diam: 2.5 cm (2.7 - 3.8) LAESV Index (A-L): 22.74 ml/m Ao Diam: 3.2 cm (2.0 - 3.7) AV Cusp: 1.7 cm (1.5 - 2.6) MV EXCURSION: 15.488 mm (> 18.000) MV EF SLOPE: 67 mm/s (70 - 150) EPSS: 0.3 cm MV E Turner: 1.09 m/s MV DecT: 211 ms MV A Turner: 1.25 m/s MV E/A Ratio: 0.87 RAP: 5.00 mmHg RVSP: 29.84 mmHg TAPSE: 22.78 mm FINDINGS -------- Sinus rhythm. This was a technically good study. The left ventricular size is normal. There is borderline concentric left ventricular hypertrophy. Overall left ventricular systolic function is normal with, an EF between 60 - 65 %. The diastolic filling pattern indicates impaired relaxation 15.16. The right ventricle is normal in size. Normal LA size by volume 22+/-6 ml/m2. The right atrium is normal in size. Interatrial and interventricular septum intact. There is mild aortic valve sclerosis. The mitral valve is normal. Mild tricuspid regurgitation present. Right ventricular systolic pressure is normal at < 35 mmHg. Trace/mild (physiologic) pulmonic regurgitation. The aortic root size is normal. Normal inferior vena cava with normal inspiratory collapse consistent with estimated right atrial pre ssure of 5 mmHg. There is no pericardial effusion. CONCLUSIONS -------- 1. Sinus rhythm. 2. This was a technically good study. 3. The left ventricular size is normal. 4. There is borderline concentric left ventricular hypertrophy. 5. Overall left ventricular systolic function is normal with, an EF between 60 - 65 %. 6. The diastolic filling pattern indicates impaired relaxation 15.16.. 7. The right ventricle is normal in size. 8. Normal LA size by volume 22+/-6 ml/m2. 9. The right atrium is normal in size. 10. Interatrial and interventricular septum intact. 11. There is mild aortic valve sclerosis. 12. The mitral valve is normal. 13. Mild tricuspid regurgitation present. 14. Right ventricular systolic pressure is normal at < 35 mmHg. 15. Trace/mild (physiologic) pulmonic regurgitation. 16. The aortic root size is normal. 17. Normal inferior vena cava with normal inspiratory collapse consistent with estimated right atrial pressure of 5 mmHg. 18. There is no pericardial effusion. WINDOWS SYSTEMS ADMINISTRATOR: Bhargavi Reeves RDCS
[2019-07-02] MEDS ORDERED: DOBUTamine DRIP for NUC MED 500 MG in DEXTROSE/WATER 1 250ML.BAG IV ONE (10:50)
--- NOTE | 2019-07-02 11:05 | P.CRDCN ---
History of Present Illness Consult date: 07/02/19 Requesting physician: Miesha George Consult reason: chest pain Chief complaint: Chest pain History of present illness: This is a 68-year-old female with history of COPD, hyperlipidemia, hy pothyroidism, prior TIAs, anxiety, bipolar, who had quit smoking for several years and over the past 2 months. Picked up smoking again. She came to the emergency room a few days ago with thinking she may have had an upper respiratory infection, she was given a course of steroids which she's been t aking at home. She presented to the hospital on this occasion with symptoms of sharp stabbing chest pain, she states they would last one to 2 minutes, then return. She denies any pressure or heaviness and states that her breathing has been stable. She denies any associated diaphoresis or nausea. Chest x-ray on presentation here showed subtle changes of congestive heart failure, scarring versus atelectasis in both lungs. EKG shows a normal sinus rhythm with left axis deviation. Echocardiogram with Doppler study was performed which revealed an ejection fraction of 60-65%. Let pressure 115/70 with a heart rate of 70, 97% on room air. White blood cell count 11.9, 12 this morning, hemoglobin 13.5, platelet count 291. D-dimer 0.36. Sodium 137, potassium 4.5, BUN 16, creatinine 0.4. Troponins negative 3. BNP level 129. TSH level 2.6. At the time of my examination this morning, patient is currently chest pain-free and her breathing is stable. She is quite eager to be discharged home. Past Medical History Past Medical History: COPD, Hyperlipidemia, Myocardial Infarction ([place]), Seizure Disorder, Thyroid Disorder Additional Past Medical History / Comment(s): IBS, Last Myocardial Infarction Date:: 2016 History of Any Multi-Drug Resistant Organisms: None Reported Past Surgical History: Appendectomy, Hysterectomy Additional Past Surgical History / Comment(s): thyroid burned out r/t graves disease Past Psychological History: Anxiety, Bipolar, Depression Smoking Status: Current every day smoker Past Alcohol Use History: Rare Past Drug Use History: None Reported - Past Family History Father Family Medical History: Pulmonary Embolus Additional Family Medical History / Comment(s): at age of 40 in [place] Mother Family Medical History: Dementia Additional Family Medical History / Comment(s): at age 87, possible breast CA. Sister(s) Family Medical History: Cancer Additional Family Medical History / Comment(s): at age 73 of leukemia; other sister has had brain surgery and migraines; other sister has IBS and thyroid disorder. Brother(s) Family Medical History: Diabetes Mellitus Additional Family Medical History / Comment(s): other brother has DM as well. Medications and Allergies Home Medications Medication Instructions Recorded Confirmed Type Benztropine Mesylate 1 mg PO TID PRN 05/10/17 07/01/19 History Divalproex Sodium [Depakote] 1,000 mg PO HS 05/10/17 07/01/19 History Simvastatin [Zocor] 20 mg PO DAILY 05/10/17 07/01/19 History Vit C/E/Zn/Coppr/Lutein/Zeaxan 1 cap PO BID 05/10/17 07/01/19 History [Preservision Areds 2 Softgel] Aspirin EC [Ecotrin Low Dose] 81 mg PO DAILY 05/28/18 07/01/19 History Calcium Carbonate [Calcium] 600 mg PO DAILY 05/28/18 07/01/19 History Cholecalciferol [Vitamin D3 (25 5,000 unit PO DAILY 05/28/18 07/01/19 History Mcg = 1000 Iu)] Levothyroxine Sodium [Synthroid] 100 mcg PO DAILY 05/29/18 07/01/19 History Albuterol Inhaler [Ventolin Hfa 1 - 2 puff INHALATION RT-Q6H PRN 05/31/18 07/01/19 Rx Inhaler] #1 inhaler predniSONE [Deltasone] 40 mg PO DAILY 5 Days #10 tablet 06/28/19 07/01/19 Rx ARIPiprazole [Abilify] 5 mg PO HS 07/01/19 07/01/19 History Acetaminophen [Tylenol Arthritis] 325 mg PO DAILY PRN 07/01/19 07/01/19 History Allergies Allergy/AdvReac Type Severity Reaction Status Date / Time azithromycin [From Zithromax] Allergy Rash/Hives Verified 07/01/19 09:12 codeine Allergy Unknown Verified 07/01/19 09:12 diphenhydramine Allergy Confusion Verified 07/01/19 09:12 [From Benadryl] erythromycin base Allergy Rash/Hives Verified 07/01/19 09:12 thiopental Allergy Unknown Verified 07/01/19 11:17 Childhood Physical Exam Vitals: Vital Signs Temp Pulse Pulse Pulse Pulse Resp BP 07/02/19 08:00 96.1 F L 70 16 115/72 07/02/19 04:00 98.1 F 65 16 112/59 07/02/19 00:00 98.1 F 65 18 112/59 07/01/19 20:00 98.3 F 79 88 92 79 16 114/72 07/01/19 16:00 97.9 F 77 16 07/01/19 12:00 76 18 BP BP BP Pulse Ox 07/02/19 08:00 97 07/02/19 04:00 92 L 07/02/19 00:00 92 L 07/01/19 20:00 127/80 92/55 94 L 07/01/19 16:00 102/69 94 L 07/01/19 12:00 Intake and Output 07/01/19 07/02/19 07/02/19 22:59 06:59 14:59 Intake Total 240 240 Balance 240 240 Intake: Oral 240 240 Other: # Voids 1 Weight 70.1 kg PHYSICAL EXAMINATION: GENERAL: 68-year-old female in no acute distress at the time of my examination HEENT: Head is atraumatic, normocephalic. Pupils equal, round. Sclera anicteric. Conjunctiva are clear. Mucous membranes of the mouth are moist. Neck is supple. There is no elevated jugular venous pressure. No carotid bruit is heard. HEART EXAMINATION: Heart S1, S2 normal. No murmur or gallop heard. CHEST EXAMINATION: Lungs are clear to auscultation with mild diminished air entry to the bases . No chest wall tenderness is noted on palpation or with deep breathing. ABDOMEN: Soft, nontender. Bowel sounds are heard. No organomegaly noted. EXTREMITIES: 2+ peripheral pulses with no evidence of peripheral edema and no calf tenderness noted. NEUROLOGIC patient is awake, alert and oriented 3 . . Results 07/02/19 09:01 07/02/19 09:01 Cardiac Enzymes 07/01/19 07/01/19 07/02/19 Range/Units 14:10 19:33 09:01 AST 18 (14-36) U/L Troponin I <0.012 <0.012 (0.000-0.034) ng/mL Lipids 07/01/19 Range/Units 07:50 Triglycerides 119 (<150) mg/dL Cholesterol 134 (<200) mg/dL HDL Cholesterol 54 (40-60) mg/dL CBC 07/02/19 Range/Units 09:01 WBC 12.0 H (3.8-10.6) k/uL RBC 4.32 (3.80-5.40) m/uL Hgb 13.5 (11.4-16.0) gm/dL Hct 40.1 (34.0-46.0) % Plt Count 291 (150-450) k/uL Comprehensive Metabolic Panel 07/02/19 Range/Units 09:01 Sodium 137 (137-145) mmol/L Potassium 4.5 (3.5-5.1) mmol/L Chloride 105 (98-107) mmol/L Carbon Dioxide 22 (22-30) mmol/L BUN 16 (7-17) mg/dL Creatinine 0.47 L (0.52-1.04) mg/dL Glucose 133 H (74-99) mg/dL Calcium 9.7 (8.4-10.2) mg/dL AST 18 (14-36) U/L ALT 17 (9-52) U/L Alkaline Phosphatase 63 (38-126) U/L Total Protein 6.6 (6.3-8.2) g/dL Albumin 3.8 (3.5-5.0) g/dL Current Medications Generic Name Dose Route Start Last Admin Trade Name Freq PRN Reason Stop Dose Admin Acetaminophen 325 mg 07/01/19 10:56 07/02/19 04:02 Tylenol Tab PO 325 mg DAILY PRN Administration Pain Aripiprazole 5 mg 07/01/19 21:00 07/01/19 21:15 Abilify PO 5 mg HS AURELIA Administration Aspirin 81 mg 07/03/19 09:00 Aspirin PO DAILY [facility] Atorvastatin Calcium 10 mg 07/02/19 09:00 07/02/19 08:22 Lipitor PO 10 mg DAILY AURELIA Administration Benztropine Mesylate 1 mg 07/01/19 10:56 Cogentin PO TID PRN [facility] Calcium Carbonate/Glycine 500 mg 07/02/19 09:00 07/02/19 08:22 Tums PO 500 mg DAILY AURELIA Administration Cholecalciferol 5,000 unit 07/02/19 09:00 07/02/19 08:21 Vitamin D3 (25 Mcg = 1000 Iu) PO 5,000 unit DAILY AURELIA Administration Divalproex Sodium 1,000 mg 07/01/19 21:00 07/01/19 21:16 Depakote PO 1,000 mg HS AURELIA Administration Levothyroxine Sodium 100 mcg 07/01/19 11:00 07/02/19 06:31 Synthroid PO 100 mcg DAILY@0630 AURELIA Administration Multivitamins/Minerals 1 each 07/01/19 21:00 07/02/19 08:22 Ivite PO 1 each BID AURELIA Administration Nitroglycerin 0.4 mg 07/01/19 08:50 Nitrostat SUBLINGUAL Q5M PRN Chest Pain Prednisone 20 mg 07/01/19 11:15 07/02/19 08:22 PO 20 mg DAILY AURELIA Administration Intake and Output 07/01/19 07/02/19 07/02/19 22:59 06:59 14:59 Intake Total 240 240 Balance 240 240 Intake: Oral 240 240 Other: # Voids 1 Weight 70.1 kg 07/02/19 09:01 07/02/19 09:01 EKG Interpretations (text) EKG shows normal sinus rhythm with no acute changes. Assessment and Plan Plan: Assessment and plan #1 chest pain, atypical for acute coronary syndrome. Troponins negative 3. EKG shows normal sinus rhythm with no acute changes. #2 COPD with recent upper respiratory infection, on prednisone #3 nicotine dependence #4 hypothyroidism #5 hyperlipidemia #6 bipolar disorder and anxiety #7 no evidence of congestive cardiac failure, BNP level is normal, ec hocardiogram with Doppler study reveals a normal ejection fraction of 60-65%. Plan We will discontinue the Nitropaste, decrease the aspirin to 81 mg daily, Patient has been recommended to undergo dobutamine echocardiographic study. Based on these results further recommendations will be made. DNP note has been reviewed, I agree with a documented findings and plan of care. Patient was seen and examined.
[2019-07-02 13:38] VITALS: BP 137/79; PULSE 66
--- NOTE | 2019-07-02 14:27 | P.DS ---
Providers Date of admission: 07/01/19 08:50 Expected date of discharge: 07/02/19 Attending physician: Miesha George Consults: 07/01/19 08:50 Consult Physician Urgent Consulting Provider: Jenna Monreal Consult Reason/Comments: cp Do you want consulting provider notified?: Yes Primary care physician: Miesha Doris [facility] Course: Discharge diagnosis #1 episode of chest pain lasting 2-3 hours now resolved, EKG reveals normal sinus rhythm without any acute ischemic changes, first troponin was negative patient is admitted to telemetry floor cardiology consultation was requested serial EKG and cardiac enzymes are ordered. #2 chest x-ray done in the emergency room reveals subtle changes of congestive heart failure, will check echocardiogram. #3 recent upper respiratory infection, patient was seen in the emergency room and was given prednisone 40 mg daily, patient has improved will taper off prednisone. #4 underlying history of hypothyroidism maintained on Synthroid 100 g daily Will continue current dose and check TSH #5 underlying history of hyperlipidemia #6 underlying history of tobacco abuse patient was counseled in length regarding smoking cessation #7 underlying history of psychiatric illness maintained on Depakote and Abilify and followed by Dr. Gasca psychiatrist. Troponins negative 3 TSH level 2.660 BNP 129 2-D echo completed showing an EF of 60-65% Patient refused to do chemical stress test unable to complete regular stress test. Per cardiology patient has been cleared for discharge will follow-up outpatient for further workup. Hospital course Lidia Grider, is a 68-year-old female who presented to [facility] emergency room with a chief complaint of chest pain, patient describes a pressure sensation in the left side of her chest, pain started when she woke up in the morning and lasted that she was treated in the emergency room, duration is about 2-1/2 hours. Patient denies any accompanying symptoms there was no diaphoresis no nausea or vomiting no shortness of breath and no radiation of the pain to the arm or to the neck. Patient stated that 4 days ago she presented to emergency room with upper respiratory infection symptoms she was given a course of prednisone, she has been taking prednisone 40 mg once daily for the last 3 days. Patient also stated that she was admitted with chest pain about 2 years ago at that time she attempted to do a stress test but was unable to walk on the treadmill. She denies ever having cardiac catheterization. On 07/02/2019 patient's alert and oriented 3. Patient is very eager to go home. Patient denies any chest pain or shortness of breath. Troponins have been negative 3. Patient refused dobutamine stress test per cardiology. Patient unable to complete walking stress test. Patient has been cleared for discharge from cardiology standpoint will follow up with [employer] outpatient for further workup. At this time patient denies any chest pain. Patient denies shortness breath. Patient denies nausea vomiting or diarrhea. Patient denies any urinary burning or frequency. I performed an examination of the patient and discussed their management with the Nurse Practitioner. I have reviewed the Nurse Practitioner's notes and agree with the documented findings and plan of care Patient Condition at Discharge: Stable Plan - Discharge Summary Discharge Rx Participant: No New Discharge Prescriptions: Continue Divalproex Sodium [Depakote] 1,000 mg PO HS Benztropine Mesylate 1 mg PO TID PRN PRN Reason: [facility] Simvastatin [Zocor] 20 mg PO DAILY Vit C/E/Zn/Coppr/Lutein/Zeaxan [Preservision Areds 2 Softgel] 1 cap PO BID Calcium Carbonate [Calcium] 600 mg PO DAILY Aspirin EC [Ecotrin Low Dose] 81 mg PO DAILY Cholecalciferol [Vitamin D3 (25 Mcg = 1000 Iu)] 5,000 unit PO DAILY Levothyroxine Sodium [Synthroid] 100 mcg PO DAILY Albuterol Inhaler [Ventolin Hfa Inhaler] 1 - 2 puff INHALATION RT-Q6H PRN #1 inhaler PRN Reason: Shortness Of Breath predniSONE [Deltasone] 40 mg PO DAILY 5 Days #10 tablet ARIPiprazole [Abilify] 5 mg PO HS Acetaminophen [Tylenol Arthritis] 325 mg PO DAILY PRN PRN Reason: Pain Discharge Medication List Benztropine Mesylate 1 mg PO TID PRN 05/10/17 [History] Divalproex Sodium [Depakote] 1,000 mg PO HS 05/10/17 [History] Simvastatin [Zocor] 20 mg PO DAILY 05/10/17 [History] Vit C/E/Zn/Coppr/Lutein/Zeaxan [Preservision Areds 2 Softgel] 1 cap PO BID 05/10/17 [History] Aspirin EC [Ecotrin Low Dose] 81 mg PO DAILY 05/28/18 [History] Calcium Carbonate [Calcium] 600 mg PO DAILY 05/28/18 [History] Cholecalciferol [Vitamin D3 (25 Mcg = 1000 Iu)] 5,000 unit PO DAILY 05/28/18 [History] Levothyroxine Sodium [Synthroid] 100 mcg PO DAILY 05/29/18 [History] Albuterol Inhaler [Ventolin Hfa Inhaler] 1 - 2 puff INHALATION RT-Q6H PRN #1 inhaler 05/31/18 [Rx] predniSONE [Deltasone] 40 mg PO DAILY 5 Days #10 tablet 06/28/19 [Rx] ARIPiprazole [Abilify] 5 mg PO HS 07/01/19 [History] Acetaminophen [Tylenol Arthritis] 325 mg PO DAILY PRN 07/01/19 [History] Follow up Appointment(s)/Referral(s): Miesha George MD [Primary Care Provider] - 07/09/19 10:30 am (Tuesday -previously scheduled appointment) Jenna Monreal MD [STAFF PHYSICIAN] - 07/17/19 2:15 pm (Tuesday) Patient Instructions/Handouts: Chest Pain (DC), How to Stop Smoking (DC)
[2019-07-03] MEDS ORDERED: ASPIRIN 81 MG PO SCH (09:00)
== END 2019-07-02 16:58 | disposition home or self-care (01) ==
LOC: EC 07:12 → 3SCARD 08:50
PROVIDERS: ADMIT Internal Medicine; ATTEND Internal Medicine
DX: R07.89 Other chest pain (principal); R11.0 Nausea; R42 Dizziness and giddiness; J44.9 Chronic obstructive pulmonary disease, unspecified; E78.5 Hyperlipidemia, unspecified; I25.2 Old myocardial infarction; J06.9 Acute upper respiratory infection, unspecified; G40.909 Epilepsy, unspecified, not intractable, without status epilepticus; E05.00 Thyrotoxicosis with diffuse goiter without thyrotoxic crisis or storm; E03.9 Hypothyroidism, unspecified; K58.9 Irritable bowel syndrome, unspecified; F41.9 Anxiety disorder, unspecified; F31.9 Bipolar disorder, unspecified; F17.200 Nicotine dependence, unspecified, uncomplicated; Z86.73 Personal history of transient ischemic attack (TIA), and cerebral infarction without residual deficits; Z90.49 Acquired absence of other specified parts of digestive tract; Z90.710 Acquired absence of both cervix and uterus; Z79.899 Other long term (current) drug therapy; Z79.82 Long term (current) use of aspirin; Z79.890 Hormone replacement therapy; Z88.5 Allergy status to narcotic agent; Z88.8 Allergy status to other drugs, medicaments and biological substances; Z88.1 Allergy status to other antibiotic agents; Z81.8 Family history of other mental and behavioral disorders; Z82.49 Family history of ischemic heart disease and other diseases of the circulatory system; Z80.6 Family history of leukemia; Z82.0 Family history of epilepsy and other diseases of the nervous system; Z83.3 Family history of diabetes mellitus; Z83.49 Family history of other endocrine, nutritional and metabolic diseases; Z80.9 Family history of malignant neoplasm, unspecified
CPT/HCPCS: 93005 ×2; 99285; 36415; 93306; 85379; 83880; 80061; 80053 ×2; 84443; 83735; 84484; 85025 ×2; 85610; 85730; 71046; G0378 ×2; J7512 ×2

== ENCOUNTER 2019-07-04 06:57 | Emergency (ER) | payer MEDICARE, OTHER ==
[2019-07-04] MEDS ORDERED: SODIUM CHLORIDE 0.9% 1,000 ML IV STA (07:02)
[2019-07-04] MEDS ORDERED: ASPIRIN 81 MG PO STA (07:02)
[2019-07-04] MEDS ORDERED: SODIUM CHLORIDE 0.9% 500 ML 500 ML IV STA (07:02)
--- NOTE | 2019-07-04 07:13 | ED ---
Chest Pain HPI - General Chief Complaint: Chest Pain Stated Complaint: Chest Pain Time Seen by Provider: 07/04/19 07:00 Source: EMS, RN notes reviewed, old records reviewed Mode of arrival: EMS Limitations: language barrier - History of Present Illness Initial Comments: 68-year-old female presents today for evaluation for concerns for an episode of chest pain this evening, and complains of generalized weakness. Patient reports that helped her muscle seemed weak. She was admitted the hospital for chest pain approximately 2 days ago. She had full evaluation at that time including echocardiogram. She is unable to complete a stress test at that time. Patient states that her chest pain is now diminished. She denies any fevers or chills cough and shortness of breath. Denies any peripheral paresthesias or neck pain. Patient states that she has no headache. MD Complaint: chest pain - Related Data Home Medications Medication Instructions Recorded Confirmed Divalproex Sodium [Depakote] 1,000 mg PO HS 05/10/17 07/04/19 Simvastatin [Zocor] 20 mg PO DAILY 05/10/17 07/04/19 Vit C/E/Zn/Coppr/Lutein/Zeaxan 1 cap PO BID 05/10/17 07/04/19 [Preservision Areds 2 Softgel] Aspirin EC [Ecotrin Low Dose] 81 mg PO DAILY 05/28/18 07/04/19 Calcium Carbonate [Calcium] 600 mg PO DAILY 05/28/18 07/04/19 Cholecalciferol [Vitamin D3 (25 5,000 unit PO DAILY 05/28/18 07/04/19 Mcg = 1000 Iu)] Levothyroxine Sodium [Synthroid] 100 mcg PO DAILY 05/29/18 07/04/19 ARIPiprazole [Abilify] 5 mg PO HS 07/01/19 07/04/19 Acetaminophen [Tylenol Arthritis] 325 mg PO DAILY PRN 07/01/19 07/04/19 Benztropine Mesylate [Cogentin] 0.5 mg PO BID 07/04/19 07/04/19 Previous Rx's Medication Instructions Recorded Albuterol Inhaler [Ventolin Hfa 1 - 2 puff INHALATION RT-Q6H PRN 05/31/18 Inhaler] #1 inhaler predniSONE [Deltasone] 40 mg PO DAILY 5 Days #10 tablet 11/14/19 Allergies Allergy/AdvReac Type Severity Reaction Status Date / Time azithromycin [From Zithromax] Allergy Rash/Hives Verified 07/04/19 08:01 codeine Allergy Unknown Verified 07/04/19 08:01 diphenhydramine Allergy Confusion Verified 07/04/19 08:01 [From Benadryl] erythromycin base Allergy Rash/Hives Verified 07/04/19 08:01 thiopental Allergy Unknown Verified 07/04/19 08:01 Childhood Review of Systems ROS Statement: Those systems with pertinent positive or pertinent negative responses have been documented in the HPI. ROS Other: All systems not noted in ROS Statement are negative. EKG Findings - EKG Comments: EKG Findings:: EKG shows normal sinus rhythm left axis deviation. Low voltage QRS. Abnormal EKG. Ventricular 60 to be certain.. Was 150 ms. QS duration is 88 ms. QT QTc is 412/418 ms. No evidence of ST elevation. Past Medical History Past Medical History: COPD, Hyperlipidemia, Myocardial Infarction ([place]), Seizure Disorder, Thyroid Disorder Additional Past Medical History / Comment(s): IBS, Last Myocardial Infarction Date:: 2016 History of Any Multi-Drug Resistant Organisms: None Reported Past Surgical History: Appendectomy, Hysterectomy Additional Past Surgical History / Comment(s): thyroid burned out r/t graves disease Past Psychological History: Anxiety, Bipolar, Depression Smoking Status: Former smoker Past Alcohol Use History: Rare Past Drug Use History: None Reported - Past Family History Father Family Medical History: Pulmonary Embolus Additional Family Medical History / Comment(s): at age of 40 in [place] Mother Family Medical History: Dementia Additional Family Medical History / Comment(s): at age 87, possible breast CA. Sister(s) Family Medical History: Cancer Additional Family Medical History / Comment(s): at age 73 of leukemia; other sister has had brain surgery and migraines; other sister has IBS and thyroid disorder. Brother(s) Family Medical History: Diabetes Mellitus Additional Family Medical History / Comment(s): other brother has DM as well. General Exam - General Exam Comments Initial Comments: 5-year-old female. Alert and oriented. No distress. Limitations: language barrier General appearance: alert, in no apparent distress Head exam: Present: atraumatic, normocephalic, normal inspection Eye exam: Present: normal appearance, PERRL, EOMI. Absent: scleral icterus, conjunctival injection, periorbital swelling ENT exam: Present: normal exam, mucous membranes moist Neck exam: Present: normal inspection. Absent: tenderness, meningismus, lymphadenopathy Respiratory exam: Present: normal lung sounds bilaterally. Absent: respiratory distress, wheezes, rales, rhonchi, stridor Cardiovascular Exam: Present: regular rate, normal rhythm, normal heart sounds. Absent: systolic murmur, diastolic murmur, rubs, gallop, clicks GI/Abdominal exam: Present: soft, normal bowel sounds. Absent: distended, tenderness, guarding, rebound, rigid Extremities exam: Present: normal inspection, full ROM, normal capillary refill, pedal edema (one plus pedal edema). Absent: tenderness, joint swelling, calf tenderness Back exam: Present: normal inspection, full ROM Neurological exam: Present: alert, oriented X3, CN II-XII intact Expanded Patient oriented to: Present: person, place, time Speech: Present: fluid speech Cranial nerves: EOM's Intact: Normal, Facial Sensation: Normal Cerebellar function: Finger to Nose: Normal Upper motor neuron: Pronator Drift: Normal Sensory exam: Upper Extremity Light Touch: Normal, Lower Extremity Light Touch: Normal Motor strength exam: RUE: 5, LUE: 5, RLE: 5, LLE: 5 Eye Response: (4) open spontaneously Motor Response: (6) obeys commands Verbal Response: (5) oriented [place] Total: 15 Psychiatric exam: Present: normal affect, normal mood Skin exam: Present: warm, dry, intact, normal color Course Vital Signs 07/04/19 07/04/19 07/04/19 06:58 07:30 08:00 Temperature 98 F Pulse Rate 69 65 57 L Respiratory 18 13 20 Rate Blood Pressure 162/87 162/87 134/89 O2 Sat by Pulse 96 94 L 96 Oximetry 07/04/19 07/04/19 08:30 09:00 Temperature Pulse Rate 56 L 56 L Respiratory 12 20 Rate Blood Pressure 133/85 127/85 O2 Sat by Pulse 97 96 Oximetry - Reevaluation(s) Reevaluation #1: 07/04/19 08:55 Was reevaluated and resting comfortably in bed. Denies any pains at this time. Discussed line to repeat second troponin test. Reevaluation #2: 07/04/19 10:36 Seen walking to and from the bathroom. No distress. Is anxious to be discharged. Chest Pain MDM - MDM This is a 5-year-old female presented today for concern for one episode of chest pain that resolved upon arrival, she also complains of generalized weakness. On exam shows no focal or lateralizing neurological deficits. Ambulating well 2 from the bathroom. Patient EKG shows no acute changes. Patient's chest x-ray shows Redemonstration of multifocal atelectasis and curly B-lines of mild fluid overload. Given 1 dose of Lasix. She is has no shortness of breath Patient is have some mild swelling or lower extremities. Patient was reevaluated and states she feels well this time. I discussed waiting for second troponin that she did complain one short episode of chest pain. Second troponin is negative. On reevaluation she is resting complaint back and was anxious and she wants to be discharged. Patient advised that she needs to stop smoking drink plenty of water and to talk to her primary care doctor about maybe adding a diuretic medication to her regimen. Patient is agreeable as planned. Cautions were answered. Disposition Clinical Impression: Episode of generalized weakness, Atypical chest pain Disposition: HOME SELF-CARE Condition: Good Instructions (If sedation given, give patient instructions): Chest Pain (ED) Additional Instructions: Patient advised to follow-up with your primary care physician as scheduled. Return to the emergency department if any alarming signs or symptoms occur. Is patient prescribed a controlled substance at d/c from ED?: No Referrals: Miesha George MD [Primary Care Provider] - 1-2 days Time of Disposition: 09:01
[2019-07-04 07:33] LABS: Basophils # (A) 0.1 k/uL (0-0.2); Basophils % (A) 1 %; Eosinophils # (A) 0.3 k/uL (0-0.7); Eosinophils % (A) 3 %; HCT 42.3 % (34.0-46.0); Lymphocytes # (A) 4.1 k/uL (1.0-4.8); Lymphocytes % (A) 37 %; MCH 30.7 pg (25.0-35.0); MCV 93.1 fL (80.0-100.0); Mean Platelet Volume 7.3; Monocytes # (A) 0.7 k/uL (0-1.0); Monocytes % (A) 6 %; Neutrophils # (A) 5.6 k/uL (1.3-7.7); Neutrophils % (A) 51 %; Platelet Count 285 k/uL (150-450); RBC 4.55 m/uL (3.80-5.40); RDW 13.3 % (11.5-15.5); WBC 10.9 k/uL (3.8-10.6)
--- NOTE | 2019-07-04 07:33 | XR ---
EXAMINATION TYPE: XR chest 2V DATE OF EXAM: 07/04/2019 COMPARISON: 07/01/2019 HISTORY: Weakness TECHNIQUE: Frontal and lateral views of the chest are obtained. FINDINGS: Platelike atelectasis bilaterally with Charan B lines. Overall low lung volumes. Cardiomed iastinal silhouette is within normal limits. Degenerative changes of the spine and shoulders are seen with diffuse osseous demineralization. Slight infiltration of the right hemidiaphragm. IMPRESSION: Redemonstration of multifocal atelectasis and Charan B lines of mild fluid overload.
[2019-07-04 07:48] LABS: ALT 13 U/L (9-52); AST 24 U/L (14-36); African American GFR (CKD) >90 (>60 ml/min/1.73 sqM); Albumin 3.7 g/dL (3.5-5.0); Alkaline Phosphatase 58 U/L (38-126); Amylase 43 U/L (30-110); Anion Gap 4 mmol/L; Blood Urea Nitrogen 21 mg/dL (7-17); Calcium 9.6 mg/dL (8.4-10.2); Carbon Dioxide 29 mmol/L (22-30); Chloride 105 mmol/L (98-107); Glucose 91 mg/dL (74-99); INR 0.9 (<1.2); Magnesium 1.9 mg/dL (1.6-2.3); Non-African American GFR(CKD) >90 (>60 ml/min/1.73 sqM); Partial Thromboplastin Time 23.5 sec (22.0-30.0); Potassium 4.8 mmol/L (3.5-5.1); Sodium 138 mmol/L (137-145); Total Bilirubin 0.5 mg/dL (0.2-1.3); Total Protein 6.6 g/dL (6.3-8.2)
[2019-07-04] MEDS ORDERED: FUROSEMIDE 10 MG/ML 4 ML VIAL IV STA (09:00)
[2019-07-04 10:48] VITALS: BP 128/76; PULSE 76; RESP 18; TEMP 98.4
== END 2019-07-04 10:44 | disposition home or self-care (01) ==
LOC: EC 06:57
DX: R07.89 Other chest pain (principal); R53.1 Weakness; J98.11 Atelectasis; E87.70 Fluid overload, unspecified; R60.0 Localized edema; E78.5 Hyperlipidemia, unspecified; I25.2 Old myocardial infarction; G40.909 Epilepsy, unspecified, not intractable, without status epilepticus; E07.9 Disorder of thyroid, unspecified; F31.9 Bipolar disorder, unspecified; F41.9 Anxiety disorder, unspecified; Z87.891 Personal history of nicotine dependence; Z88.1 Allergy status to other antibiotic agents; Z88.4 Allergy status to anesthetic agent; Z88.5 Allergy status to narcotic agent; Z88.8 Allergy status to other drugs, medicaments and biological substances; Z79.82 Long term (current) use of aspirin; Z79.890 Hormone replacement therapy; Z79.899 Other long term (current) drug therapy; Z83.6 Family history of other diseases of the respiratory system
CPT/HCPCS: 99285; 96374; 96361 ×3; 36415; 93005; 83880; 80053; 82150; 83690; 83735; 84484; 85025; 85610; 85730; 71046; J1940

== ENCOUNTER → 2019-07-23 | Outpatient (CLI) | payer MEDICARE, OTHER ==
--- NOTE | 2019-07-23 17:08 | US ---
EXAMINATION TYPE: US venous doppler duplex LE LT DATE OF EXAM: 07/23/2019 4:44 PM COMPARISON: NONE CLINICAL HISTORY: M79.662,R22.42 PAIN AND SWELLING LT LOWER LIMB. Pain and edema left leg SIDE PERFORMED: left TECHNIQUE: The lower extremity deep venous system is examined utilizing real time linear array sonog roxy with graded compression, doppler sonography and color-flow sonography. VESSELS IMAGED: External Iliac Vein (EIV) Common Femoral Vein Deep Femoral Vein Greater Saphenous Vein * Femoral Vein Popliteal Vein Small Saphenous Vein * Proximal Calf Veins (* superficial vessels) Left Leg: No evidence of DVT as visualized IMPRESSION: No evidence of deep venous thrombosis in the left leg.
== END | disposition home or self-care (01) ==
LOC: RADUSWWP 16:25
PROVIDERS: ATTEND Internal Medicine
DX: M79.662 Pain in left lower leg (principal); R22.42 Localized swelling, mass and lump, left lower limb

== ENCOUNTER 2019-09-11 10:29 | Emergency (ER) | payer MEDICARE, OTHER ==
[2019-09-11] MEDS ORDERED: SODIUM CHLORIDE 0.9% 500 ML 500 ML IV STA (10:42)
[2019-09-11 10:47] VITALS: RESP 18; TEMP 98.3
--- NOTE | 2019-09-11 10:47 | ED ---
Syncope HPI <Marbella Santoro - Last Filed: 09/11/19 19:41> <Benny Nam - Last Filed: 09/12/19 07:15> - General Stated Complaint: near syncope Time Seen by Provider: 09/11/19 10:31 - History of Present Illness Initial Comments: Patient is a 68-year-old female presenting to the emergency department via EMS for a near syncopal episode. Patient states she was working at the [employer] putting items back onto the shelf when she bent over and pick something up out of her car and stood back up and suddenly felt like she might pass out. Patient states she called over a coworker who helped her sit down. Patient states she felt lightheaded after that. Patient did not fall down. Presently, patient states she still feels "weak all over." Patient states she did eat breakfast this morning although way earlier than she usually does. Patient was treated for a UTI approximately 2 weeks ago and she did complete her antibiotic. She has no other recent changes in medications. She denies fever, chills, abdominal pain, chest pain, shortness of breath, dysuria. She has no other complaints at this time. Upon arrival to ER, vital signs are stable. (Marbella Santoro) - Related Data Home Medications Medication Instructions Recorded Confirmed Divalproex Sodium [Depakote] 1,000 mg PO HS 05/10/17 09/11/19 Simvastatin [Zocor] 20 mg PO HS 05/10/17 09/11/19 Vit C/E/Zn/Coppr/Lutein/Zeaxan 1 cap PO BID 05/10/17 09/11/19 [Preservision Areds 2 Softgel] Aspirin EC [Ecotrin Low Dose] 81 mg PO DAILY 05/28/18 09/11/19 Calcium Carbonate [Calcium] 600 mg PO DAILY 05/28/18 09/11/19 Cholecalciferol [Vitamin D3 (25 5,000 unit PO DAILY 05/28/18 09/11/19 Mcg = 1000 Iu)] Levothyroxine Sodium [Synthroid] 100 mcg PO DAILY 05/29/18 09/11/19 ARIPiprazole [Abilify] 5 mg PO HS 07/01/19 09/11/19 Benztropine Mesylate [Cogentin] 0.5 mg PO BID 07/04/19 09/11/19 Albuterol Inhaler [Ventolin Hfa 2 puff INHALATION RT-Q6H PRN 09/11/19 09/11/19 Inhaler] Furosemide [Lasix] 20 mg PO DAILY 09/11/19 09/11/19 Allergies Allergy/AdvReac Type Severity Reaction Status Date / Time azithromycin [From Zithromax] Allergy Rash/Hives Verified 09/11/19 12:14 codeine Allergy Unknown Verified 09/11/19 12:14 diphenhydramine Allergy Confusion Verified 09/11/19 12:14 [From Benadryl] erythromycin base Allergy Rash/Hives Verified 09/11/19 12:14 thiopental Allergy Unknown Verified 09/11/19 12:14 Childhood Review of Systems ROS Other: All systems not noted in ROS Statement are negative. <Marbella Santoro - Last Filed: 09/11/19 19:41> ROS Other: All systems not noted in ROS Statement are negative. <Benny Nam - Last Filed: 09/12/19 07:15> ROS Statement: Those systems with pertinent positive or pertinent negative responses have been documented in the HPI. Past Medical History Past Medical History: COPD, Hyperlipidemia, Myocardial Infarction ([place]), Seizure Disorder, Thyroid Disorder Additional Past Medical History / Comment(s): IBS, Last Myocardial Infarction Date:: 2016 History of Any Multi-Drug Resistant Organisms: None Reported Past Surgical History: Appendectomy, Hysterectomy Additional Past Surgical History / Comment(s): thyroid burned out r/t graves disease Past Psychological History: Anxiety, Bipolar, Depression Smoking Status: Former smoker Past Alcohol Use History: Rare Past Drug Use History: None Reported - Past Family History Father Family Medical History: Pulmonary Embolus Additional Family Medical History / Comment(s): at age of 40 in [place] Mother Family Medical History: Dementia Additional Family Medical History / Comment(s): at age 87, possible breast CA. Sister(s) Family Medical History: Cancer Additional Family Medical History / Comment(s): at age 73 of leukemia; other sister has had brain surgery and migraines; other sister has IBS and thyroid disorder. Brother(s) Family Medical History: Diabetes Mellitus Additional Family Medical History / Comment(s): other brother has DM as well. <Marbella Santoro - Last Filed: 09/11/19 19:41> General Exam <Marbella Santoro - Last Filed: 09/11/19 19:41> - General Exam Comments Initial Comments: GENERAL: Well-appearing, well-nourished and in no acute distress. HEAD: Atraumatic, normocephalic. EYES: Pupils equal round and reactive to light, extraocular movements intact, sclera anicteric, conjunctiva are normal. ENT: TMs normal, nares patent, oropharynx clear without exudates. Moist mucous membranes. NECK: Normal range of motion, supple without lymphadenopathy or JVD. LUNGS: Breath sounds clear to auscultation bilaterally and equal. No wheezes rales or rhonchi. HEART: Regular rate and rhythm without murmurs, rubs or gallops. ABDOMEN: Soft, nontender, normoactive bowel sounds. No guarding, no rebound. No masses appreciated. : Deferred EXTREMITIES: Normal range of motion, no pitting or edema. No clubbing or cyanosis. 5 out of 5 strength upper and lower extremities. Sensation equal and bilateral upper and lower extremities. NEUROLOGICAL: Cranial nerves II through XII grossly intact. Normal speech, normal gait. PSYCH: Normal mood, normal affect. SKIN: Warm, Dry, normal turgor, no rashes or lesions noted. (Marbella Santoro Josué) Course <CyrilBenny - Last Filed: 09/12/19 07:15> Vital Signs 09/11/19 09/11/19 09/11/19 10:45 12:11 12:23 Temperature 98.3 F 98.3 F Pulse Rate 68 64 64 Respiratory 18 18 18 Rate Blood Pressure 143/101 118/87 118/87 O2 Sat by Pulse 95 64 L 64 L Oximetry - Reevaluation(s) Reevaluation #1: 09/12/19 07:15 PA supervision: I proceeded [id number] evaluation the patient she did have a shelter episode today. The clinical presentation however appears be that of dehydration she has had dry oral mucosa. There is evidence on lab work of the same. We did discuss this with patient family. They are in agreement with this. Did review all workup was done in addition to the evaluation and discussion. (Benny Nam) EKG Findings - EKG Comments: EKG Findings:: Ventricular rate 71, ID interval 158, QTc 443. Normal sinus rhythm. Normal ECG. No acute ST segment changes. <MaudeMarbella - Last Filed: 09/11/19 19:41> Medical Decision Making - Lab Data Result diagrams: 09/11/19 10:49 09/11/19 10:49 <Marbella Santoro Josué - Last Filed: 09/11/19 19:41> - Lab Data Result diagrams: 09/11/19 10:49 09/11/19 10:49 <Benny Nam - Last Filed: 09/12/19 07:15> - Medical Decision Making Patient is a 68-year-old here for near syncopal episode at work today. Vital signs are stable upon arrival. Recently treated for UTI. Lab work today shows mild dehydration otherwise normal, UA is normal. Chest x-ray is normal. EKG shows no acute changes. Trpo is normal. I discussed these findings with the patient. Patient states her symptoms have improved after half a liter fluids. We discussed that this is most likely due to her dehydration and then going from a bent over to a standing position at work today. We discussed increasing her water intake. She is in agreement with this plan of care. Patient is stable for discharge at this time. She will follow-up with her PCP. Return parameters were discussed with the patient she verbalized understanding. Case discussed with Dr. Nam who did evaluate the patient and agrees with this plan of care. (Marbella Santoro) - Lab Data Lab Results 09/11/19 09/11/19 09/11/19 Range/Units 10:49 10:49 10:49 WBC 7.4 (3.8-10.6) k/uL RBC 4.79 (3.80-5.40) m/uL Hgb 14.2 (11.4-16.0) gm/dL Hct 43.3 (34.0-46.0) % MCV 90.4 (80.0-100.0) fL MCH 29.7 (25.0-35.0) pg MCHC 32.9 (31.0-37.0) g/dL RDW 12.5 (11.5-15.5) % Plt Count 256 (150-450) k/uL Neutrophils % 60 % Lymphocytes % 30 % Monocytes % 6 % Eosinophils % 2 % Basophils % 0 % Neutrophils # 4.5 (1.3-7.7) k/uL Lymphocytes # 2.2 (1.0-4.8) k/uL Monocytes # 0.4 (0-1.0) k/uL Eosinophils # 0.1 (0-0.7) k/uL Basophils # 0.0 (0-0.2) k/uL PT 9.7 (9.0-12.0) sec INR 0.9 (<1.2) APTT 22.3 (22.0-30.0) sec Sodium 141 (137-145) mmol/L Potassium 4.0 (3.5-5.1) mmol/L Chloride 106 (98-107) mmol/L Carbon Dioxide 26 (22-30) mmol/L Anion Gap 9 mmol/L BUN 21 H (7-17) mg/dL Creatinine 0.55 (0.52-1.04) mg/dL Est GFR (CKD-EPI)AfAm >90 (>60 ml/min/1.73 sqM) Est GFR (CKD-EPI)NonAf >90 (>60 ml/min/1.73 sqM) Glucose 94 (74-99) mg/dL POC Glucose (mg/dL) (75-99) mg/dL POC Glu Goring Cutter ID Calcium 9.5 (8.4-10.2) mg/dL Total Bilirubin 0.4 (0.2-1.3) mg/dL AST 26 (14-36) U/L ALT 19 (4-34) U/L Alkaline Phosphatase 77 (38-126) U/L Troponin I (0.000-0.034) ng/mL Total Protein 7.0 (6.3-8.2) g/dL Albumin 4.1 (3.5-5.0) g/dL Urine Color Urine Appearance (Clear) Urine pH (5.0-8.0) Ur Specific Bog[place] (1.001-1.035) Urine Protein (Negative) Urine Glucose (UA) (Negative) Urine Ketones (Negative) Urine Blood (Negative) Urine Nitrite (Negative) Urine Bilirubin (Negative) Urine Urobilinogen (<2.0) mg/dL Ur Leukocyte Esterase (Negative) 09/11/19 09/11/19 09/11/19 Range/Units 10:49 10:49 10:56 WBC (3.8-10.6) k/uL RBC (3.80-5.40) m/uL Hgb (11.4-16.0) gm/dL Hct (34.0-46.0) % MCV (80.0-100.0) fL MCH (25.0-35.0) pg MCHC (31.0-37.0) g/dL RDW (11.5-15.5) % Plt Count (150-450) k/uL Neutrophils % % Lymphocytes % % Monocytes % % Eosinophils % % Basophils % % Neutrophils # (1.3-7.7) k/uL Lymphocytes # (1.0-4.8) k/uL Monocytes # (0-1.0) k/uL Eosinophils # (0-0.7) k/uL Basophils # (0-0.2) k/uL PT (9.0-12.0) sec INR (<1.2) APTT (22.0-30.0) sec Sodium (137-145) mmol/L Potassium (3.5-5.1) mmol/L Chloride (98-107) mmol/L Carbon Dioxide (22-30) mmol/L Anion Gap mmol/L BUN (7-17) mg/dL Creatinine (0.52-1.04) mg/dL Est GFR (CKD-EPI)AfAm (>60 ml/min/1.73 sqM) Est GFR (CKD-EPI)NonAf (>60 ml/min/1.73 sqM) Glucose (74-99) mg/dL POC Glucose (mg/dL) 95 (75-99) mg/dL POC Glu Goring Cutter ID Rebecca Cope Calcium (8.4-10.2) mg/dL Total Bilirubin (0.2-1.3) mg/dL AST (14-36) U/L ALT (4-34) U/L Alkaline Phosphatase (38-126) U/L Troponin I <0.012 (0.000-0.034) ng/mL Total Protein (6.3-8.2) g/dL Albumin (3.5-5.0) g/dL Urine Color Light Yellow Urine Appearance Clear (Clear) Urine pH 5.0 (5.0-8.0) Ur Specific [place] 1.008 (1.001-1.035) Urine Protein Negative (Negative) Urine Glucose (UA) Negative (Negative) Urine Ketones Negative (Negative) Urine Blood Negative (Negative) Urine Nitrite Negative (Negative) Urine Bilirubin Negative (Negative) Urine Urobilinogen <2.0 (<2.0) mg/dL Ur Leukocyte Esterase Negative (Negative) Disposition Is patient prescribed a controlled substance at d/c from ED?: No <Marbella Santoro - Last Filed: 09/11/19 19:41> <Benny Nam - Last Filed: 09/12/19 07:15> Clinical Impression: Dehydration, Near syncope Disposition: HOME SELF-CARE Condition: Stable Instructions (If sedation given, give patient instructions): Dehydration (ED) Additional Instructions: Please return to the Emergency Department if symptoms worsen or any other concerns. Continue to increase fluid intake as discussed. Follow up with PCP. Referrals: Miesha George MD [Primary Care Provider] - 1-2 days
[2019-09-11 10:59] LABS: Glucose,Whole Blood 95 mg/dL (75-99)
[2019-09-11 11:03] LABS: Appearance,Urine Clear (Clear); Basophils % (A) 0 %; Bilirubin,Urine Negative (Negative); Blood,Urine Negative (Negative); Color,Urine Light Yellow; Eosinophils # (A) 0.1 k/uL (0-0.7); Eosinophils % (A) 2 %; Glucose,Urine (UA) Negative (Negative); HCT 43.3 % (34.0-46.0); HGB 14.2 gm/dL (11.4-16.0); Ketones,Urine Negative (Negative); Leukocyte Esterase,Urine Negative (Negative); Lymphocytes # (A) 2.2 k/uL (1.0-4.8); Lymphocytes % (A) 30 %; MCH 29.7 pg (25.0-35.0); MCHC 32.9 g/dL (31.0-37.0); MCV 90.4 fL (80.0-100.0); Mean Platelet Volume 7.9; Monocytes # (A) 0.4 k/uL (0-1.0); Monocytes % (A) 6 %; Neutrophils # (A) 4.5 k/uL (1.3-7.7); Neutrophils % (A) 60 %; Nitrite,Urine Negative (Negative); Platelet Count 256 k/uL (150-450); Protein,Urine Negative (Negative); RBC 4.79 m/uL (3.80-5.40); RDW 12.5 % (11.5-15.5); Specific Gravity,Urine 1.008 (1.001-1.035); Urobilinogen,Urine <2.0 mg/dL (<2.0); WBC 7.4 k/uL (3.8-10.6)
--- NOTE | 2019-09-11 11:18 | XR ---
EXAMINATION TYPE: XR chest 2V DATE OF EXAM: 09/11/2019 COMPARISON: 07/04/2019 HISTORY: Presyncope TECHNIQUE: Frontal and lateral views of the chest are obtained. FINDINGS: Chronic multifocal scarring is seen on the right midlung and left lower lung. Emphysematou s changes are seen with biapical lucency. Cardiomediastinal silhouette is within normal limits. Advan silva degenerative change of the right glenohumeral joint. Diffuse osseous demineralization. No focal c onsolidation, pleural effusion or pneumothorax. IMPRESSION: Chronic changes with no acute cardiopulmonary process.
[2019-09-11 11:29] LABS: ALT 19 U/L (4-34); AST 26 U/L (14-36); African American GFR (CKD) >90 (>60 ml/min/1.73 sqM); Albumin 4.1 g/dL (3.5-5.0); Alkaline Phosphatase 77 U/L (38-126); Anion Gap 9 mmol/L; Blood Urea Nitrogen 21 mg/dL (7-17); Calcium 9.5 mg/dL (8.4-10.2); Carbon Dioxide 26 mmol/L (22-30); Chloride 106 mmol/L (98-107); Glucose 94 mg/dL (74-99); Non-African American GFR(CKD) >90 (>60 ml/min/1.73 sqM); Sodium 141 mmol/L (137-145); Total Bilirubin 0.4 mg/dL (0.2-1.3)
[2019-09-11 11:41] LABS: INR 0.9 (<1.2); Partial Thromboplastin Time 22.3 sec (22.0-30.0); Prothrombin Time 9.7 sec (9.0-12.0)
[2019-09-11 12:13] VITALS: BP 118/87; PULSE 64
== END 2019-09-11 12:30 | disposition home or self-care (01) ==
LOC: EC 10:29
DX: R55 Syncope and collapse (principal); E86.0 Dehydration; R53.1 Weakness; J44.9 Chronic obstructive pulmonary disease, unspecified; E78.5 Hyperlipidemia, unspecified; I25.2 Old myocardial infarction; G40.909 Epilepsy, unspecified, not intractable, without status epilepticus; E07.9 Disorder of thyroid, unspecified; F31.9 Bipolar disorder, unspecified; Z87.891 Personal history of nicotine dependence; Z79.82 Long term (current) use of aspirin; Z79.890 Hormone replacement therapy; Z79.899 Other long term (current) drug therapy; Z88.1 Allergy status to other antibiotic agents; Z88.5 Allergy status to narcotic agent; Z88.8 Allergy status to other drugs, medicaments and biological substances
CPT/HCPCS: 36415; 71046; 80053; 81003; 84484; 85025; 85610; 85730; 93005; 96360; 99284

== ENCOUNTER 2020-03-05 00:14 | Emergency (ER) | payer MEDICARE, OTHER ==
--- NOTE | 2020-03-05 00:25 | ED ---
Chest Pain HPI - General Chief Complaint: Chest Pain Stated Complaint: Chest Pain, leg swelling Time Seen by Provider: 03/05/20 00:23 Source: patient, RN notes reviewed, old records reviewed Mode of arrival: wheelchair Limitations: no limitations - History of Present Illness Initial Comments: This is a 69-year-old female DF for evaluation of some bilateral lower [place]y swelling worse than normal. Chest was on and off chest pain is recurrent. Patient's history of high blood pressure and prior ME. Nursing travel history or sick contacts. No prior history of PE or DVT. No fevers cough or congestion MD Complaint: chest pain -: days(s) Onset: during rest, during exertion Pain Location: substernal Pain Radiation: back Severity: moderate Severity scale (1-10): 4 Quality: aching Consistency: constant Improves With: nothing Worsens With: exertion Anginal Symptoms: diaphoresis, dyspnea Other Symptoms: leg swelling Treatments Prior to Arrival: none - Related Data Home Medications Medication Instructions Recorded Confirmed Divalproex Sodium [Depakote] 1,000 mg PO HS 05/10/17 09/11/19 Simvastatin [Zocor] 20 mg PO HS 05/10/17 09/11/19 Vit C/E/Zn/Coppr/Lutein/Zeaxan 1 cap PO BID 05/10/17 09/11/19 [Preservision Areds 2 Softgel] Aspirin EC [Ecotrin Low Dose] 81 mg PO DAILY 05/28/18 09/11/19 Calcium Carbonate [Calcium] 600 mg PO DAILY 05/28/18 09/11/19 Cholecalciferol [Vitamin D3 (25 5,000 unit PO DAILY 05/28/18 09/11/19 Mcg = 1000 Iu)] Levothyroxine Sodium [Synthroid] 100 mcg PO DAILY 05/29/18 09/11/19 ARIPiprazole [Abilify] 5 mg PO HS 07/01/19 09/11/19 Benztropine Mesylate [Cogentin] 0.5 mg PO BID 07/04/19 09/11/19 Albuterol Inhaler (Mhu) [Ventolin 2 puff INHALATION RT-Q6H PRN 09/11/19 09/11/19 Hfa Inhaler] Furosemide [Lasix] 20 mg PO DAILY 09/11/19 09/11/19 Allergies Allergy/AdvReac Type Severity Reaction Status Date / Time azithromycin [From Zithromax] Allergy Rash/Hives Verified 03/05/20 00:21 codeine Allergy Unknown Verified 03/05/20 00:21 diphenhydramine Allergy Confusion Verified 03/05/20 00:21 [From Benadryl] erythromycin base Allergy Rash/Hives Verified 03/05/20 00:21 thiopental Allergy Unknown Verified 03/05/20 00:21 Childhood Review of Systems ROS Statement: Those systems with pertinent positive or pertinent negative responses have been documented in the HPI. ROS Other: All systems not noted in ROS Statement are negative. EKG Findings - EKG Comments: EKG Findings:: EKG is sinus rhythm 78 DC 158 QRS 78 QTc 437 Past Medical History Past Medical History: COPD, Hyperlipidemia, Myocardial Infarction (ME), Seizure Disorder, Thyroid Disorder Additional Past Medical History / Comment(s): IBS, Last Myocardial Infarction Date:: 2016 History of Any Multi-Drug Resistant Organisms: None Reported Past Surgical History: Appendectomy, Hysterectomy Additional Past Surgical History / Comment(s): thyroid burned out r/t graves disease Past Psychological History: Anxiety, Bipolar, Depression Smoking Status: Current every day smoker Past Alcohol Use History: Rare Past Drug Use History: None Reported - Past Family History Father Family Medical History: Pulmonary Embolus Additional Family Medical History / Comment(s): at age of 40 in mva Mother Family Medical History: Dementia Additional Family Medical History / Comment(s): at age 87, possible breast CA. Sister(s) Family Medical History: Cancer Additional Family Medical History / Comment(s): at age 73 of leukemia; other sister has had brain surgery and migraines; other sister has IBS and thyroid disorder. Brother(s) Family Medical History: Diabetes Mellitus Additional Family Medical History / Comment(s): other brother has DM as well. General Exam General appearance: alert, in no apparent distress Head exam: Present: atraumatic, normocephalic, normal inspection Eye exam: Present: normal appearance, PERRL, EOMI. Absent: scleral icterus, conjunctival injection, periorbital swelling ENT exam: Present: normal exam, mucous membranes moist Neck exam: Present: normal inspection. Absent: tenderness, meningismus, lymphadenopathy Respiratory exam: Present: normal lung sounds bilaterally. Absent: respiratory distress, wheezes, rales, rhonchi, stridor Cardiovascular Exam: Present: regular rate, normal rhythm, normal heart sounds. Absent: systolic murmur, diastolic murmur, rubs, gallop, clicks GI/Abdominal exam: Present: soft, normal bowel sounds. Absent: distended, tenderness, guarding, rebound, rigid Extremities exam: Present: normal inspection, full ROM, normal capillary refill. Absent: tenderness, pedal edema, joint swelling, calf tenderness Back exam: Present: normal inspection Neurological exam: Present: alert, oriented X3, CN II-XII intact Psychiatric exam: Present: normal affect, normal mood Skin exam: Present: warm, dry, intact, normal color. Absent: rash Course Vital Signs 03/05/20 03/05/20 00:17 02:16 Temperature 98.2 F 97.6 F Pulse Rate 78 68 Respiratory 17 16 Rate Blood Pressure 154/94 140/87 O2 Sat by Pulse 97 95 Oximetry - Reevaluation(s) Reevaluation #1: Medical record is reviewed Patient remains a symptomatically no chest pain informed results would like discharge home over observation Chest Pain MDM - MDM 69 female DF for eval should've bilateral lower extremity edema increase Lasix dose at home, patient to be discharged home normal lab values chest x-rays negative Disposition Clinical Impression: Chest pain, Bilateral leg edema Disposition: HOME SELF-CARE Condition: Good Instructions (If sedation given, give patient instructions): Chest Pain (ED) Is patient prescribed a controlled substance at d/c from ED?: No Referrals: Miesha George MD [Primary Care Provider] - 1-2 days
[2020-03-05 00:48] LABS: Basophils % (A) 0 %; Eosinophils # (A) 0.1 k/uL (0-0.7); Eosinophils % (A) 2 %; HCT 42.1 % (34.0-46.0); HGB 14.1 gm/dL (11.4-16.0); Lymphocytes % (A) 32 %; MCH 30.8 pg (25.0-35.0); MCHC 33.6 g/dL (31.0-37.0); MCV 91.6 fL (80.0-100.0); Mean Platelet Volume 8.6; Monocytes # (A) 0.6 k/uL (0-1.0); Monocytes % (A) 7 %; Neutrophils # (A) 5.3 k/uL (1.3-7.7); Neutrophils % (A) 57 %; Platelet Count 252 k/uL (150-450); RBC 4.59 m/uL (3.80-5.40); RDW 13.7 % (11.5-15.5); WBC 9.2 k/uL (3.8-10.6)
[2020-03-05 00:58] LABS: Partial Thromboplastin Time 23.9 sec (22.0-30.0); Prothrombin Time 10.1 sec (9.0-12.0)
[2020-03-05 01:00] LABS: ALT 30 U/L (4-34); AST 31 U/L (14-36); African American GFR (CKD) >90 (>60 ml/min/1.73 sqM); Albumin 4.2 g/dL (3.5-5.0); Alkaline Phosphatase 76 U/L (38-126); Anion Gap 8 mmol/L; Blood Urea Nitrogen 17 mg/dL (7-17); Calcium 9.9 mg/dL (8.4-10.2); Carbon Dioxide 26 mmol/L (22-30); Chloride 102 mmol/L (98-107); Creatine Kinase 66 U/L (30-135); Glucose 103 mg/dL (74-99); Magnesium 2.2 mg/dL (1.6-2.3); Non-African American GFR(CKD) >90 (>60 ml/min/1.73 sqM); Potassium 4.2 mmol/L (3.5-5.1); Sodium 136 mmol/L (137-145); Total Bilirubin 0.4 mg/dL (0.2-1.3); Total Protein 6.9 g/dL (6.3-8.2)
--- NOTE | 2020-03-05 01:07 | XR ---
EXAMINATION TYPE: XR chest 2V DATE OF EXAM: 03/05/2020 COMPARISON: 09/11/2019 HISTORY: Dizziness TECHNIQUE: 2 views FINDINGS: There is no heart failure. There is coarse interstitial density in the mid and lower lung f ields. Heart size is fairly normal. Thoracic aorta is atheromatous. There are chest leads. IMPRESSION: Subsegmental atelectasis and minimal interstitial infiltrates increased slightly compared to old exam. Normal heart. No heart failure.
[2020-03-05 01:10] LABS: Troponin I <0.012 ng/mL (0.000-0.034)
[2020-03-05] MEDS ORDERED: FUROSEMIDE 10 MG/ML 4 ML VIAL IV STA (02:01)
[2020-03-05 02:18] VITALS: BP 140/87; PULSE 68; RESP 16; TEMP 97.6
== END 2020-03-05 02:23 | disposition home or self-care (01) ==
LOC: EC 00:14
DX: R07.1 Chest pain on breathing (principal); R07.2 Precordial pain; R60.0 Localized edema; R06.00 Dyspnea, unspecified; R61 Generalized hyperhidrosis; J44.9 Chronic obstructive pulmonary disease, unspecified; E78.5 Hyperlipidemia, unspecified; I25.2 Old myocardial infarction; G40.909 Epilepsy, unspecified, not intractable, without status epilepticus; E07.9 Disorder of thyroid, unspecified; F31.9 Bipolar disorder, unspecified; F17.200 Nicotine dependence, unspecified, uncomplicated; Z82.49 Family history of ischemic heart disease and other diseases of the circulatory system; Z79.82 Long term (current) use of aspirin; Z79.890 Hormone replacement therapy; Z79.899 Other long term (current) drug therapy; Z88.1 Allergy status to other antibiotic agents; Z88.5 Allergy status to narcotic agent; Z88.8 Allergy status to other drugs, medicaments and biological substances
CPT/HCPCS: 36415; 93005; 83880; 80053; 82550; 82553; 83690; 83735; 84484; 85025; 85610; 85730; 71046; 99284; 96374; J1940

== ENCOUNTER → 2020-03-14 | Outpatient (CLI) | payer MEDICARE, OTHER ==
--- NOTE | 2020-03-14 13:32 | US ---
EXAMINATION TYPE: US venous doppler duplex LE BI DATE OF EXAM: 03/14/2020 1:09 PM COMPARISON: CLINICAL HISTORY: M79.662,R22.42,M79.661,R22.41. On baby aspirin. Leg pain. SIDE PERFORMED: Bilateral TECHNIQUE: The lower extremity deep venous system is examined utilizing real time linear array sonog roxy with graded compression, doppler sonography and color-flow sonography. VESSELS IMAGED: External Iliac Vein (EIV) Common Femoral Vein Deep Femoral Vein Greater Saphenous Vein * Femoral Vein Popliteal Vein Small Saphenous Vein * Proximal Calf Veins (* superficial vessels) Right Leg: Negative for DVT Left Leg: Negative for DVT IMPRESSION: No evidence for DVT at this time.
== END | disposition home or self-care (01) ==
LOC: RADUSWWP 12:42
PROVIDERS: ATTEND Internal Medicine
DX: R22.43 Localized swelling, mass and lump, lower limb, bilateral (principal)
CPT/HCPCS: 93970

== ENCOUNTER 2020-03-22 23:18 | Emergency (ER) | payer MEDICARE, OTHER ==
[2020-03-23 00:31] LABS: Basophils % (A) 0 %; Eosinophils # (A) 0.3 k/uL (0-0.7); Eosinophils % (A) 3 %; HCT 42.8 % (34.0-46.0); HGB 13.7 gm/dL (11.4-16.0); Lymphocytes # (A) 2.7 k/uL (1.0-4.8); Lymphocytes % (A) 28 %; MCH 29.8 pg (25.0-35.0); MCV 93.1 fL (80.0-100.0); Mean Platelet Volume 7.9; Monocytes # (A) 0.6 k/uL (0-1.0); Monocytes % (A) 7 %; Neutrophils # (A) 5.8 k/uL (1.3-7.7); Neutrophils % (A) 60 %; Platelet Count 271 k/uL (150-450); RDW 13.7 % (11.5-15.5); WBC 9.7 k/uL (3.8-10.6)
[2020-03-23 00:41] LABS: ALT 19 U/L (4-34); AST 21 U/L (14-36); African American GFR (CKD) >90 (>60 ml/min/1.73 sqM); Albumin 3.7 g/dL (3.5-5.0); Alkaline Phosphatase 90 U/L (38-126); Anion Gap 7 mmol/L; Blood Urea Nitrogen 21 mg/dL (7-17); Calcium 9.2 mg/dL (8.4-10.2); Carbon Dioxide 26 mmol/L (22-30); Chloride 103 mmol/L (98-107); Glucose 137 mg/dL (74-99); Non-African American GFR(CKD) >90 (>60 ml/min/1.73 sqM); Potassium 3.5 mmol/L (3.5-5.1); Sodium 136 mmol/L (137-145); Total Bilirubin 0.3 mg/dL (0.2-1.3); Total Protein 6.3 g/dL (6.3-8.2)
--- NOTE | 2020-03-23 01:00 | XR ---
EXAMINATION TYPE: XR chest 2V DATE OF EXAM: 03/23/2020 COMPARISON: 03/05/2020 HISTORY: Feet swelling. Short of breath. TECHNIQUE: 2 views FINDINGS: There is some patchy linear density in the mid and lower lung wall. There is no heart gretchen lure. Heart size is normal. There is no pleural effusion. Bony thorax appears intact. There is modera te arthritic change in the shoulder joints. IMPRESSION: No heart failure seen. There is some patchy atelectasis in the lower lung wall not sign ificantly different than old exam. Normal heart.
[2020-03-23] MEDS ORDERED: FUROSEMIDE 10 MG TAB PO STA (01:36)
--- NOTE | 2020-03-23 01:36 | ED ---
General Adult HPI - General Chief complaint: Extremity Problem,Nontraumatic Stated complaint: Feet Swelling Time Seen by Provider: 03/22/20 23:25 Source: patient, RN notes reviewed, old records reviewed Mode of arrival: wheelchair Limitations: no limitations - History of Present Illness Initial comments: 69-year-old female patient presents to ED for evaluation of bilateral lower extremity edema. Patient reports she has had issues with this the last week. States that the swelling has been worse. Reports that she does state Lasix 30 mg once per day in the morning. She also reports that she has history of congestive heart failure. She denies any chest pain or shortness of breath. Denying any other complaints at this time. Systemic: Pt denies fatigue, fever/chills, rash. Pt denies weakness, night sweats, weight loss. Neuro: Pt denies headache, visual disturbances, syncope or pre-syncope. HEENT: Pt denies ocular discharge or irritation, otalgia, rhinorrhea, pharyngitis or notable lymphadenopathy. Cardiopulmonary: Pt denies chest pain, SOB, heart palpitations, dyspnea on exertion. Abdominal/GI: Pt denies abdominal pain, n/v/d. : Pt denies dysuria, burning w/ urination, frequency/urgency. Denies new onset urinary or bowel incontinence. MSK: Pt denies myalgia, loss of strength or function in extremities. Neuro: Pt denies new onset weakness, paresthesias. - Related Data Home Medications Medication Instructions Recorded Confirmed Divalproex Sodium [Depakote] 1,000 mg PO HS 05/10/17 09/11/19 Simvastatin [Zocor] 20 mg PO HS 05/10/17 09/11/19 Vit C/E/Zn/Coppr/Lutein/Zeaxan 1 cap PO BID 05/10/17 09/11/19 [Preservision Areds 2 Softgel] Aspirin EC [Ecotrin Low Dose] 81 mg PO DAILY 05/28/18 09/11/19 Calcium Carbonate [Calcium] 600 mg PO DAILY 05/28/18 09/11/19 Cholecalciferol [Vitamin D3 (25 5,000 unit PO DAILY 05/28/18 09/11/19 Mcg = 1000 Iu)] Levothyroxine Sodium [Synthroid] 100 mcg PO DAILY 05/29/18 09/11/19 ARIPiprazole [Abilify] 5 mg PO HS 07/01/19 09/11/19 Benztropine Mesylate [Cogentin] 0.5 mg PO BID 07/04/19 09/11/19 Albuterol Inhaler (Mhu) [Ventolin 2 puff INHALATION RT-Q6H PRN 09/11/19 09/11/19 Hfa Inhaler] Furosemide [Lasix] 20 mg PO DAILY 09/11/19 09/11/19 Allergies Allergy/AdvReac Type Severity Reaction Status Date / Time azithromycin [From Zithromax] Allergy Rash/Hives Verified 03/22/20 23:22 codeine Allergy Unknown Verified 03/22/20 23:22 diphenhydramine Allergy Confusion Verified 03/22/20 23:22 [From Benadryl] erythromycin base Allergy Rash/Hives Verified 03/22/20 23:22 thiopental Allergy Unknown Verified 03/22/20 23:22 Childhood Review of Systems ROS Statement: Those systems with pertinent positive or pertinent negative responses have been documented in the HPI. ROS Other: All systems not noted in ROS Statement are negative. Past Medical History Past Medical History: COPD, Hyperlipidemia, Myocardial Infarction (ID), Seizure Disorder, Thyroid Disorder Additional Past Medical History / Comment(s): IBS, Last Myocardial Infarction Date:: 2016 History of Any Multi-Drug Resistant Organisms: None Reported Past Surgical History: Appendectomy, Hysterectomy Additional Past Surgical History / Comment(s): thyroid burned out r/t graves disease Past Psychological History: Anxiety, Bipolar, Depression Smoking Status: Current every day smoker Past Alcohol Use History: Rare Past Drug Use History: None Reported - Past Family History Father Family Medical History: Pulmonary Embolus Additional Family Medical History / Comment(s): at age of 40 in [place] Mother Family Medical History: Dementia Additional Family Medical History / Comment(s): at age 87, possible breast CA. Sister(s) Family Medical History: Cancer Additional Family Medical History / Comment(s): at age 73 of leukemia; other sister has had brain surgery and migraines; other sister has IBS and thyroid disorder. Brother(s) Family Medical History: Diabetes Mellitus Additional Family Medical History / Comment(s): other brother has DM as well. General Exam - General Exam Comments Initial Comments: Constitutional: NAD, AOX3, Pt has pleasant affect. HEENT: NC/AT, trachea midline, neck supple, no lymphadenopathy. External ears appear normal, without discharge. Mucous membranes moist. Eyes PERRLA, EOM intact. There is no scleral icterus. No pallor noted. Cardiopulmonary: RRR, no murmurs, rubs or gallops, no JVD noted. Lungs CTAB in anterior and posterior wall. +1 peripheral edema lower extremities bilateral ly . Aominal exam: Abdomen soft and non-distended. Abdomen non-tender to palpation in all 4 quadrants. Bowel sounds active in LLQ. No hepatosplenomegaly. No ecchymosis Neuro: CN II-XII grossly intact. MSK: Full active ROM in upper and lower extremities. Distal pulses intact and equal. Limitations: no limitations Course Vital Signs 03/22/20 03/23/20 23:20 01:56 Temperature 97 F L 97.9 F Pulse Rate 99 75 Respiratory 16 14 Rate Blood Pressure 122/77 118/91 O2 Sat by Pulse 96 97 Oximetry Medical Decision Making - Medical Decision Making 29-year-old female patient presents to ED for evaluation of lower extremity edema. Patient vital signs are stable, afebrile. Physical exam is limited +1 peripheral edema. Laboratory investigations are unremarkable. EKG is nonischemic. Chest x-ray did not display any significant change from prior. No heart failure. Troponin negative. BNP 60. patient of bilateral venous Doppler s performed approximately 1.5 weeks ago and were negative for DVT. Patient administered 1 dose of Lasix will continue to follow her doctor's recommendations including elevation of the and a Lasix will follow-up with her primary care provider tomorrow and return to ER if any worsening symptoms. Case discussed with Dr. Keene. - Lab Data Result diagrams: 03/23/20 00:22 03/23/20 00:24 Lab Results 03/23/20 03/23/20 03/23/20 Range/Units 00:22 00:24 00:24 WBC 9.7 (3.8-10.6) k/uL RBC 4.60 (3.80-5.40) m/uL Hgb 13.7 (11.4-16.0) gm/dL Hct 42.8 (34.0-46.0) % MCV 93.1 (80.0-100.0) fL MCH 29.8 (25.0-35.0) pg MCHC 32.0 (31.0-37.0) g/dL RDW 13.7 (11.5-15.5) % Plt Count 271 (150-450) k/uL Neutrophils % 60 % Lymphocytes % 28 % Monocytes % 7 % Eosinophils % 3 % Basophils % 0 % Neutrophils # 5.8 (1.3-7.7) k/uL Lymphocytes # 2.7 (1.0-4.8) k/uL Monocytes # 0.6 (0-1.0) k/uL Eosinophils # 0.3 (0-0.7) k/uL Basophils # 0.0 (0-0.2) k/uL Sodium 136 L (137-145) mmol/L Potassium 3.5 (3.5-5.1) mmol/L Chloride 103 (98-107) mmol/L Carbon Dioxide 26 (22-30) mmol/L Anion Gap 7 mmol/L BUN 21 H (7-17) mg/dL Creatinine 0.55 (0.52-1.04) mg/dL Est GFR (CKD-EPI)AfAm >90 (>60 ml/min/1.73 sqM) Est GFR (CKD-EPI)NonAf >90 (>60 ml/min/1.73 sqM) Glucose 137 H (74-99) mg/dL Calcium 9.2 (8.4-10.2) mg/dL Total Bilirubin 0.3 (0.2-1.3) mg/dL AST 21 (14-36) U/L ALT 19 (4-34) U/L Alkaline Phosphatase 90 (38-126) U/L Troponin I <0.012 (0.000-0.034) ng/mL NT-Pro-B Natriuret Pep pg/mL Total Protein 6.3 (6.3-8.2) g/dL Albumin 3.7 (3.5-5.0) g/dL 03/23/20 Range/Units 00:24 WBC (3.8-10.6) k/uL RBC (3.80-5.40) m/uL Hgb (11.4-16.0) gm/dL Hct (34.0-46.0) % MCV (80.0-100.0) fL MCH (25.0-35.0) pg MCHC (31.0-37.0) g/dL RDW (11.5-15.5) % Plt Count (150-450) k/uL Neutrophils % % Lymphocytes % % Monocytes % % Eosinophils % % Basophils % % Neutrophils # (1.3-7.7) k/uL Lymphocytes # (1.0-4.8) k/uL Monocytes # (0-1.0) k/uL Eosinophils # (0-0.7) k/uL Basophils # (0-0.2) k/uL Sodium (137-145) mmol/L Potassium (3.5-5.1) mmol/L Chloride (98-107) mmol/L Carbon Dioxide (22-30) mmol/L Anion Gap mmol/L BUN (7-17) mg/dL Creatinine (0.52-1.04) mg/dL Est GFR (CKD-EPI)AfAm (>60 ml/min/1.73 sqM) Est GFR (CKD-EPI)NonAf (>60 ml/min/1.73 sqM) Glucose (74-99) mg/dL Calcium (8.4-10.2) mg/dL Total Bilirubin (0.2-1.3) mg/dL AST (14-36) U/L ALT (4-34) U/L Alkaline Phosphatase (38-126) U/L Troponin I (0.000-0.034) ng/mL NT-Pro-B Natriuret Pep 60 pg/mL Total Protein (6.3-8.2) g/dL Albumin (3.5-5.0) g/dL - EKG Data -: EKG Interpreted by Me (and Dr. Keene ) EKG Comments: Ventricular rate 71, ID interval 172, QRS 92, QT/QTc 416/452. Normal sinus rhythm, left axis deviation. Low voltage QRS. No concern for acute ischemia at this time. Disposition Clinical Impression: Lower extremity edema Disposition: HOME SELF-CARE Condition: Stable Instructions (If sedation given, give patient instructions): Leg Edema (ED) Additional Instructions: Follow-up with primary care provider tomorrow. Continue Lasix as previously directed by your primary care provider. Return to ER if any worsening symptoms. Is patient prescribed a controlled substance at d/c from ED?: No Referrals: Miesha George MD [Primary Care Provider] - 1-2 days
[2020-03-23 01:59] VITALS: BP 118/91; PULSE 75; RESP 14; TEMP 97.9
== END 2020-03-23 02:26 | disposition home or self-care (01) ==
LOC: EC 23:18
DX: R60.0 Localized edema (principal); F31.9 Bipolar disorder, unspecified; E78.5 Hyperlipidemia, unspecified; J44.9 Chronic obstructive pulmonary disease, unspecified; E05.00 Thyrotoxicosis with diffuse goiter without thyrotoxic crisis or storm; I25.2 Old myocardial infarction; F17.200 Nicotine dependence, unspecified, uncomplicated; Z79.899 Other long term (current) drug therapy; Z79.82 Long term (current) use of aspirin; Z79.890 Hormone replacement therapy; Z88.5 Allergy status to narcotic agent; Z88.1 Allergy status to other antibiotic agents; Z88.6 Allergy status to analgesic agent; Z88.4 Allergy status to anesthetic agent
CPT/HCPCS: 36415; 71046; 80053; 83880; 84484; 85025; 93005; 99284

== ENCOUNTER 2020-03-27 11:58 | Emergency (ER) | payer MEDICARE, OTHER ==
[2020-03-27 12:03] VITALS: TEMP 98.1
[2020-03-27] MEDS ORDERED: MECLIZINE 25 MG TAB PO STA (12:32)
[2020-03-27] MEDS ORDERED: FUROSEMIDE 10 MG/ML 4 ML VIAL IV STA (12:37)
--- NOTE | 2020-03-27 12:53 | ED ---
General Adult HPI - General Chief complaint: Dizziness Stated complaint: Dizziness, leg edema Time Seen by Provider: 03/27/20 12:00 Source: patient, RN notes reviewed, old records reviewed Mode of arrival: wheelchair Limitations: no limitations - History of Present Illness Initial comments: This is a 69-year-old female who presents to the emergency department complaining of being dizzy. Patient states she thought she was given a fall over. Patient states she needed to hold onto something to steady herself. Patient states since she held onto something got much better. Patient states moving her head at that time it much worse. Patient states she did not think she was going to go unconscious for pass out. Patient denies any headache patient denies any numbness weakness. Patient states last night however she did have a headache. Patient denies any visual disturbance or speech disturbance. Patient denies any chest pain palpitations difficulty breathing shortest breath per patient denies any abdominal pain. Patient states her legs are swollen and they have been progressively getting more swollen over the last 3 weeks. Patient states she is seeing cardiology as well as her primary medical care doctor about this. - Related Data Home Medications Medication Instructions Recorded Confirmed Divalproex Sodium [Depakote] 1,000 mg PO HS 05/10/17 09/11/19 Simvastatin [Zocor] 20 mg PO HS 05/10/17 09/11/19 Vit C/E/Zn/Coppr/Lutein/Zeaxan 1 cap PO BID 05/10/17 09/11/19 [Preservision Areds 2 Softgel] Aspirin EC [Ecotrin Low Dose] 81 mg PO DAILY 05/28/18 09/11/19 Calcium Carbonate [Calcium] 600 mg PO DAILY 05/28/18 09/11/19 Cholecalciferol [Vitamin D3 (25 5,000 unit PO DAILY 05/28/18 09/11/19 Mcg = 1000 Iu)] Levothyroxine Sodium [Synthroid] 100 mcg PO DAILY 05/29/18 09/11/19 ARIPiprazole [Abilify] 5 mg PO HS 07/01/19 09/11/19 Benztropine Mesylate [Cogentin] 0.5 mg PO BID 07/04/19 09/11/19 Albuterol Inhaler (Mhu) [Ventolin 2 puff INHALATION RT-Q6H PRN 09/11/19 09/11/19 Hfa Inhaler] Furosemide [Lasix] 20 mg PO DAILY 09/11/19 09/11/19 Previous Rx's Medication Instructions Recorded Meclizine [Antivert] 25 mg PO TID #20 tab 03/27/20 Allergies Allergy/AdvReac Type Severity Reaction Status Date / Time azithromycin [From Zithromax] Allergy Rash/Hives Verified 03/27/20 12:03 codeine Allergy Unknown Verified 03/27/20 12:03 diphenhydramine Allergy Confusion Verified 03/27/20 12:03 [From Benadryl] erythromycin base Allergy Rash/Hives Verified 03/27/20 12:03 thiopental Allergy Unknown Verified 03/27/20 12:03 Childhood Review of Systems ROS Statement: Those systems with pertinent positive or pertinent negative responses have been documented in the HPI. ROS Other: All systems not noted in ROS Statement are negative. Past Medical History Past Medical History: COPD, Hyperlipidemia, Myocardial Infarction ([place]), Seizure Disorder, Thyroid Disorder Additional Past Medical History / Comment(s): IBS, Last Myocardial Infarction Date:: 2016 History of Any Multi-Drug Resistant Organisms: None Reported Past Surgical History: Appendectomy, Hysterectomy Additional Past Surgical History / Comment(s): thyroid burned out r/t graves disease Past Psychological History: Anxiety, Bipolar, Depression Smoking Status: Current every day smoker Past Alcohol Use History: Rare Past Drug Use History: None Reported - Past Family History Father Family Medical History: Pulmonary Embolus Additional Family Medical History / Comment(s): at age of 40 in [place] Mother Family Medical History: Dementia Additional Family Medical History / Comment(s): at age 87, possible breast CA. Sister(s) Family Medical History: Cancer Additional Family Medical History / Comment(s): at age 73 of leukemia; other sister has had brain surgery and migraines; other sister has IBS and thyroid disorder. Brother(s) Family Medical History: Diabetes Mellitus Additional Family Medical History / Comment(s): other brother has DM as well. General Exam - General Exam Comments Initial Comments: GENERAL: Patient is well-developed and well-nourished. Patient is nontoxic and well- hydrated and is in no acute distress. ENT: Neck is soft and supple. No significant lymphadenopathy is noted. Oropharynx is clear. Moist mucous membranes. Neck has full range of motion without eliciting any pain. EYES: The sclera were anicteric and conjunctiva were pink and moist. Extraocular movements were intact and pupils were equal round and reactive to light. Eyelids were unremarkable. PULMONARY: Unlabored respirations. Good breath sounds bilaterally. No audible rales rhonchi or wheezing was noted. CARDIOVASCULAR: There is a regular rate and rhythm without any murmurs gallops or rubs. ABDOMEN: Soft and nontender with normal bowel sounds. SKIN: Skin is clear with no lesions or rashes and otherwise unremarkable. NEUROLOGIC: Patient is alert and oriented x3. Cranial nerves II through XII are grossly intact. Motor and sensory are also intact. Normal speech, volume and content. Symmetrical smile. Patient's finger to nose testing was normal bilaterally MUSCULOSKELETAL: Normal extremities with adequate strength and full range of motion. 2+ edema bilaterally LYMPHATICS: No significant lymphadenopathy is noted PSYCHIATRIC: Normal psychiatric evaluation. Limitations: no limitations Course Vital Signs 03/27/20 12:01 Temperature 98.1 F Pulse Rate 84 Respiratory 18 Rate Blood Pressure 113/79 O2 Sat by Pulse 95 Oximetry Medical Decision Making - Medical Decision Making EKG shows normal sinus rhythm at 68 bpm NE interval 162 QRS is 90 QT interval 418 QTC is 444. Patient's EKG shows no ST segment elevation or depression. Chest x-ray shows no acute abnormality CT of the brain shows no acute abnormality. Patient given Antivert in the emergency department and she had no vertigo symptoms while here. Patient has no complaints at this time other than the continued chronic edema of both legs. Patient states she was supposed to be getting pressure stockings for her legs today. - Lab Data Result diagrams: 03/27/20 12:49 03/27/20 12:49 Lab Results 03/27/20 03/27/20 03/27/20 Range/Units 12:49 12:49 12:49 WBC 7.7 (3.8-10.6) k/uL RBC 4.57 (3.80-5.40) m/uL Hgb 13.6 (11.4-16.0) gm/dL Hct 42.0 (34.0-46.0) % MCV 91.9 (80.0-100.0) fL MCH 29.7 (25.0-35.0) pg MCHC 32.3 (31.0-37.0) g/dL RDW 13.7 (11.5-15.5) % Plt Count 266 (150-450) k/uL Neutrophils % 53 % Lymphocytes % 35 % Monocytes % 5 % Eosinophils % 3 % Basophils % 1 % Neutrophils # 4.1 (1.3-7.7) k/uL Lymphocytes # 2.7 (1.0-4.8) k/uL Monocytes # 0.4 (0-1.0) k/uL Eosinophils # 0.3 (0-0.7) k/uL Basophils # 0.1 (0-0.2) k/uL PT 10.0 (9.0-12.0) sec INR 1.0 (<1.2) APTT 24.4 (22.0-30.0) sec Sodium 137 (137-145) mmol/L Potassium 4.3 (3.5-5.1) mmol/L Chloride 104 (98-107) mmol/L Carbon Dioxide 26 (22-30) mmol/L Anion Gap 7 mmol/L BUN 14 (7-17) mg/dL Creatinine 0.61 (0.52-1.04) mg/dL Est GFR (CKD-EPI)AfAm >90 (>60 ml/min/1.73 sqM) Est GFR (CKD-EPI)NonAf >90 (>60 ml/min/1.73 sqM) Glucose 98 (74-99) mg/dL Calcium 9.5 (8.4-10.2) mg/dL Magnesium 2.1 (1.6-2.3) mg/dL Total Bilirubin 0.4 (0.2-1.3) mg/dL AST 23 (14-36) U/L ALT 15 (4-34) U/L Alkaline Phosphatase 73 (38-126) U/L Troponin I (0.000-0.034) ng/mL NT-Pro-B Natriuret Pep pg/mL Total Protein 6.3 (6.3-8.2) g/dL Albumin 3.8 (3.5-5.0) g/dL 03/27/20 03/27/20 Range/Units 12:49 12:49 WBC (3.8-10.6) k/uL RBC (3.80-5.40) m/uL Hgb (11.4-16.0) gm/dL Hct (34.0-46.0) % MCV (80.0-100.0) fL MCH (25.0-35.0) pg MCHC (31.0-37.0) g/dL RDW (11.5-15.5) % Plt Count (150-450) k/uL Neutrophils % % Lymphocytes % % Monocytes % % Eosinophils % % Basophils % % Neutrophils # (1.3-7.7) k/uL Lymphocytes # (1.0-4.8) k/uL Monocytes # (0-1.0) k/uL Eosinophils # (0-0.7) k/uL Basophils # (0-0.2) k/uL PT (9.0-12.0) sec INR (<1.2) APTT (22.0-30.0) sec Sodium (137-145) mmol/L Potassium (3.5-5.1) mmol/L Chloride (98-107) mmol/L Carbon Dioxide (22-30) mmol/L Anion Gap mmol/L BUN (7-17) mg/dL Creatinine (0.52-1.04) mg/dL Est GFR (CKD-EPI)AfAm (>60 ml/min/1.73 sqM) Est GFR (CKD-EPI)NonAf (>60 ml/min/1.73 sqM) Glucose (74-99) mg/dL Calcium (8.4-10.2) mg/dL Magnesium (1.6-2.3) mg/dL Total Bilirubin (0.2-1.3) mg/dL AST (14-36) U/L ALT (4-34) U/L Alkaline Phosphatase (38-126) U/L Troponin I <0.012 (0.000-0.034) ng/mL NT-Pro-B Natriuret Pep 115 pg/mL Total Protein (6.3-8.2) g/dL Albumin (3.5-5.0) g/dL Disposition Clinical Impression: Vertigo, Bilateral leg edema Disposition: HOME SELF-CARE Condition: Good Instructions (If sedation given, give patient instructions): Vertigo (ED), Leg Edema (ED) Prescriptions: Meclizine [Antivert] 25 mg PO TID #20 tab Is patient prescribed a controlled substance at d/c from ED?: No Referrals: Miesha George MD [Primary Care Provider] - 1-2 days Time of Disposition: 13:51
[2020-03-27 13:09] LABS: Basophils # (A) 0.1 k/uL (0-0.2); Basophils % (A) 1 %; Eosinophils # (A) 0.3 k/uL (0-0.7); Eosinophils % (A) 3 %; HGB 13.6 gm/dL (11.4-16.0); Lymphocytes # (A) 2.7 k/uL (1.0-4.8); Lymphocytes % (A) 35 %; MCH 29.7 pg (25.0-35.0); MCHC 32.3 g/dL (31.0-37.0); MCV 91.9 fL (80.0-100.0); Monocytes # (A) 0.4 k/uL (0-1.0); Monocytes % (A) 5 %; Neutrophils # (A) 4.1 k/uL (1.3-7.7); Neutrophils % (A) 53 %; Platelet Count 266 k/uL (150-450); RBC 4.57 m/uL (3.80-5.40); RDW 13.7 % (11.5-15.5); WBC 7.7 k/uL (3.8-10.6)
[2020-03-27 13:20] LABS: ALT 15 U/L (4-34); AST 23 U/L (14-36); African American GFR (CKD) >90 (>60 ml/min/1.73 sqM); Albumin 3.8 g/dL (3.5-5.0); Alkaline Phosphatase 73 U/L (38-126); Anion Gap 7 mmol/L; Blood Urea Nitrogen 14 mg/dL (7-17); Calcium 9.5 mg/dL (8.4-10.2); Carbon Dioxide 26 mmol/L (22-30); Chloride 104 mmol/L (98-107); Glucose 98 mg/dL (74-99); Magnesium 2.1 mg/dL (1.6-2.3); Non-African American GFR(CKD) >90 (>60 ml/min/1.73 sqM); Potassium 4.3 mmol/L (3.5-5.1); Sodium 137 mmol/L (137-145); Total Bilirubin 0.4 mg/dL (0.2-1.3); Total Protein 6.3 g/dL (6.3-8.2)
[2020-03-27 13:22] LABS: Partial Thromboplastin Time 24.4 sec (22.0-30.0)
--- NOTE | 2020-03-27 13:25 | XR ---
EXAMINATION TYPE: XR chest 2V DATE OF EXAM: 03/27/2020 COMPARISON: 03/23/2020 TECHNIQUE: PA and lateral views submitted. HISTORY: Chest pain FINDINGS: Arthropathy of the shoulders. Bilateral subsegmental areas of linear consolidation most typical scar or atelectasis. Heart size normal. Atherosclerotic change aorta. Hypertrophic and degenerative change of the spine. No sizable pleural effusion. No overt failure. IMPRESSION: 1. Linear scar or atelectasis favored over pneumonia stable from prior exam.
--- NOTE | 2020-03-27 13:40 | CT ---
EXAMINATION TYPE: CT brain wo con DATE OF EXAM: 03/27/2020 COMPARISON: 05/10/2017 HISTORY: 69-year-old female Near syncope. TECHNIQUE: Examination was done in axial plane without intravenous contrast. Coronal and sagittal r econstructions performed. CT DLP: 1115.4 mGycm Automated exposure control for dose reduction was used. FINDINGS: There is no evidence of acute intracranial hemorrhage, acute ischemic changes, mass, mass-effect, or extra-axial fluid collection. There is no effacement of cerebral sulci or basal subarachnoid cister ns. There is no hydrocephalus. There is no midline shift. Jerry-white matter distinction is preserv ed. Continued mild generalized supratentorial volume loss. Mild patchy periventricular white matter hypod ensities unchanged. Paranasal sinuses and mastoid air cells well pneumatized. Orbits and globes are intact. IMPRESSION: Continued mild generalized atrophy and changes of chronic small vessel ischemic disease. No acute int racranial abnormality seen.
[2020-03-27 14:15] VITALS: BP 113/89; PULSE 63; RESP 16
== END 2020-03-27 14:15 | disposition home or self-care (01) ==
LOC: EC 11:58
DX: R42 Dizziness and giddiness (principal); R60.0 Localized edema; E78.5 Hyperlipidemia, unspecified; I25.2 Old myocardial infarction; G40.909 Epilepsy, unspecified, not intractable, without status epilepticus; E07.9 Disorder of thyroid, unspecified; J44.9 Chronic obstructive pulmonary disease, unspecified; F41.9 Anxiety disorder, unspecified; F31.9 Bipolar disorder, unspecified; F17.200 Nicotine dependence, unspecified, uncomplicated; Z79.82 Long term (current) use of aspirin; Z79.890 Hormone replacement therapy; Z79.899 Other long term (current) drug therapy; Z88.1 Allergy status to other antibiotic agents; Z88.5 Allergy status to narcotic agent; Z88.8 Allergy status to other drugs, medicaments and biological substances
CPT/HCPCS: 36415; 93005; 83880; 80053; 83735; 84484; 85025; 85610; 85730; 71046; 70450; 99284; 96374; J1940

== ENCOUNTER 2020-06-01 18:28 | Emergency (ER) | payer MEDICARE, OTHER ==
[2020-06-01 18:40] VITALS: TEMP 97.8
[2020-06-01 19:38] LABS: Basophils % (A) 0 %; Eosinophils # (A) 0.2 k/uL (0-0.7); Eosinophils % (A) 2 %; HGB 14.8 gm/dL (11.4-16.0); Lymphocytes # (A) 2.5 k/uL (1.0-4.8); Lymphocytes % (A) 24 %; MCH 31.2 pg (25.0-35.0); MCHC 33.5 g/dL (31.0-37.0); Mean Platelet Volume 8.7; Monocytes # (A) 0.6 k/uL (0-1.0); Monocytes % (A) 6 %; Neutrophils # (A) 6.9 k/uL (1.3-7.7); Neutrophils % (A) 67 %; Platelet Count 281 k/uL (150-450); RBC 4.73 m/uL (3.80-5.40); RDW 12.8 % (11.5-15.5); WBC 10.4 k/uL (3.8-10.6)
--- NOTE | 2020-06-01 19:48 | ED ---
Weakness HPI - General Chief complaint: Weakness Stated complaint: neuro problem Time Seen by Provider: 06/01/20 18:48 Source: patient Mode of arrival: ambulatory Limitations: no limitations - History of Present Illness Initial comments: Patient is a 69-year-old female, with history of COPD, heart disease, thyroid disease, presenting to the emergency Department with complaints of generalized weakness for the past 3 hours. Patient states she went out to dinner with a friend of hers and when they were driving home she states that she felt dizzy, weak and felt like both of her legs were heavy. Patient states she has had "mini strokes" in the past and she felt like this could be another one. She states at this time she no longer feels dizzy, but just some very generalized weakness. She states that she has some very mild weakness of her left lower extremity that she's had for years now, this is remaining the same and is not increased. She does not walk with assistance. She denies any recent fever, chills, headaches, blurry vision. She states she has been diagnosed with vertigo in the past and takes medication for this. She denies shortness of breath. She states that last night before she fell asleep she was having some chest sharp chest pains on the left side however she did not think anything about it and just went to bed. Patient states she woke up this morning she no longer had the chest pain and did not think anything more of it. She denies any abdominal pain, nausea, vomiting, diarrhea. She denies any numbness and tin gling to her extremities. She has no further complaints at this time. Upon arrival to the ER her vital signs are stable. - Related Data Home Medications Medication Instructions Recorded Confirmed Divalproex Sodium [Depakote] 1,000 mg PO HS 05/10/17 09/11/19 Simvastatin [Zocor] 20 mg PO HS 05/10/17 09/11/19 Vit C/E/Zn/Coppr/Lutein/Zeaxan 1 cap PO BID 05/10/17 09/11/19 [Preservision Areds 2 Softgel] Aspirin EC [Ecotrin Low Dose] 81 mg PO DAILY 05/28/18 09/11/19 Calcium Carbonate [Calcium] 600 mg PO DAILY 05/28/18 09/11/19 Cholecalciferol [Vitamin D3 (25 5,000 unit PO DAILY 05/28/18 09/11/19 Mcg = 1000 Iu)] Levothyroxine Sodium [Synthroid] 100 mcg PO DAILY 05/29/18 09/11/19 ARIPiprazole [Abilify] 5 mg PO HS 07/01/19 09/11/19 Benztropine Mesylate [Cogentin] 0.5 mg PO BID 07/04/19 09/11/19 Albuterol Inhaler (Mhu) [Ventolin 2 puff INHALATION RT-Q6H PRN 09/11/19 09/11/19 Hfa Inhaler] Furosemide [Lasix] 20 mg PO DAILY 09/11/19 09/11/19 Previous Rx's Medication Instructions Recorded Meclizine [Antivert] 25 mg PO TID #20 tab 03/27/20 Cephalexin [Keflex] 500 mg PO BID 7 Days #14 cap 06/01/20 Allergies Allergy/AdvReac Type Severity Reaction Status Date / Time azithromycin [From Zithromax] Allergy Rash/Hives Verified 06/01/20 18:40 codeine Allergy Unknown Verified 06/01/20 18:40 diphenhydramine Allergy Confusion Verified 06/01/20 18:40 [From Benadryl] erythromycin base Allergy Rash/Hives Verified 06/01/20 18:40 thiopental Allergy Unknown Verified 06/01/20 18:40 Childhood Review of Systems ROS Statement: Those systems with pertinent positive or pertinent negative responses have been documented in the HPI. ROS Other: All systems not noted in ROS Statement are negative. Past Medical History Past Medical History: COPD, Hyperlipidemia, Myocardial Infarction ([place]), Seizure Disorder, Thyroid Disorder Additional Past Medical History / Comment(s): IBS, Last Myocardial Infarction Date:: 2016 History of Any Multi-Drug Resistant Organisms: None Reported Past Surgical History: Appendectomy, Hysterectomy Additional Past Surgical History / Comment(s): thyroid burned out r/t graves disease Past Psychological History: Anxiety, Bipolar, Depression Smoking Status: Current every day smoker Past Alcohol Use History: Rare Past Drug Use History: None Reported - Past Family History Father Family Medical History: Pulmonary Embolus Additional Family Medical History / Comment(s): at age of 40 in [place] Mother Family Medical History: Dementia Additional Family Medical History / Comment(s): at age 87, possible breast CA. Sister(s) Family Medical History: Cancer Additional Family Medical History / Comment(s): at age 73 of leukemia; other sister has had brain surgery and migraines; other sister has IBS and thyroid disorder. Brother(s) Family Medical History: Diabetes Mellitus Additional Family Medical History / Comment(s): other brother has DM as well. General Exam - General Exam Comments Initial Comments: GENERAL: Patient is well-developed and well-nourished. Patient is nontoxic and in no acute distress. HEAD: Atraumatic, normocephalic. EYES: Pupils equal round and reactive to light, extraocular movements intact, sclera anicteric, conjunctiva are normal. Eyelids were unremarkable. ENT: TMs normal, nares patent, oropharynx clear without exudates. Moist mucous membranes. NECK: Normal range of motion, supple without lymphadenopathy or JVD. LUNGS: Unlabored respirations. Breath sounds clear to auscultation bilaterally and equal. No wheezes rales or rhonchi. HEART: Regular rate and rhythm without murmurs, rubs or gallops. ABDOMEN: Soft, nontender, normoactive bowel sounds. No guarding, no rebound. No masses appreciated. : Deferred MUSCULOSKELETAL: Normal extremities with adequate strength and normal range of motion, no pitting or edema. No clubbing or cyanosis. PSYCH: Normal mood, normal affect. SKIN: Warm, Dry, normal turgor, no rashes or lesions noted. Limitations: no limitations Neurological exam: Present: alert, oriented X3, CN II-XII intact, normal gait Expanded Speech: Present: fluid speech Cranial nerves: EOM's Intact: Normal, Tongue Deviation: Normal, Nystagmus: Normal, Facial Sensation: Normal Cerebellar function: Finger to Nose: Normal, Heel to Mcrae: Normal Upper motor neuron: Pronator Drift: Normal, Babinski Sign: Normal Sensory exam: Upper Extremity Light Touch: Normal, Lower Extremity Light Touch: Normal Motor strength exam: RUE: 5, LUE: 5, RLE: 5, LLE: 5 Eye Response: (4) open spontaneously Motor Response: (6) obeys commands Verbal Response: (5) oriented Yoly Total: 15 Course Vital Signs 06/01/20 06/01/20 06/01/20 18:34 20:39 21:27 Temperature 97.8 F Pulse Rate 88 76 77 Respiratory 18 12 12 Rate Blood Pressure 135/88 134/83 111/69 O2 Sat by Pulse 97 96 94 L Oximetry 06/01/20 21:59 Temperature 97.8 F Pulse Rate 73 Respiratory 12 Rate Blood Pressure 128/91 O2 Sat by Pulse 96 Oximetry EKG Findings - EKG Comments: EKG Findings:: Normal sinus rhythm, left axis deviation, no signs of acute ischemia. Ventricular rate 78, TN interval 160, QT 386. The mother to previous EKG on 03/27/2020. Medical Decision Making - Medical Decision Making Patient is 69-year-old female here for generalized weakness started about 3-4 hours ago. Her vital signs are stable, EKG reveals no acute process. Her exam is unremarkable, no neuro deficits. Labs show a normal white count, metastasis foot elevated 2.3, glucose 137. Troponin is normal, BMP is normal. Urine shows evidence for UTI with 116 wbc's. Patient is requesting food and drink. She is tolerating oral intake. On reexamination, patient continues to have no symptoms. I discussed with patient that her urine shows evidence for UTI. I will give her 1 g Rocephin in the ER and started her on Keflex outpatient. Patient is in agreement this plan of care. She is stable for discharge. I recommended following up with her PCP. Return parameters were discussed with the patient she verbalized understanding. Case discussed with Dr. Rainey. - Lab Data Result diagrams: 06/01/20 19:25 06/01/20 19:25 Lab Results 06/01/20 06/01/20 06/01/20 Range/Units 19:25 19:25 19:25 WBC 10.4 (3.8-10.6) k/uL RBC 4.73 (3.80-5.40) m/uL Hgb 14.8 (11.4-16.0) gm/dL Hct 44.0 (34.0-46.0) % MCV 93.0 (80.0-100.0) fL MCH 31.2 (25.0-35.0) pg MCHC 33.5 (31.0-37.0) g/dL RDW 12.8 (11.5-15.5) % Plt Count 281 (150-450) k/uL Neutrophils % 67 % Lymphocytes % 24 % Monocytes % 6 % Eosinophils % 2 % Basophils % 0 % Neutrophils # 6.9 (1.3-7.7) k/uL Lymphocytes # 2.5 (1.0-4.8) k/uL Monocytes # 0.6 (0-1.0) k/uL Eosinophils # 0.2 (0-0.7) k/uL Basophils # 0.0 (0-0.2) k/uL PT 9.6 (9.0-12.0) sec INR 0.9 (<1.2) APTT 23.2 (22.0-30.0) sec Sodium 137 (137-145) mmol/L Potassium 4.6 (3.5-5.1) mmol/L Chloride 103 (98-107) mmol/L Carbon Dioxide 26 (22-30) mmol/L Anion Gap 8 mmol/L BUN 18 H (7-17) mg/dL Creatinine 0.57 (0.52-1.04) mg/dL Est GFR (CKD-EPI)AfAm >90 (>60 ml/min/1.73 sqM) Est GFR (CKD-EPI)NonAf >90 (>60 ml/min/1.73 sqM) Glucose 137 H (74-99) mg/dL Lactic Ac Sepsis Rflx Plasma Lactic Acid Manan (0.7-2.0) mmol/L Calcium 9.5 (8.4-10.2) mg/dL Magnesium 2.1 (1.6-2.3) mg/dL Total Bilirubin 0.3 (0.2-1.3) mg/dL AST 20 (14-36) U/L ALT 12 (4-34) U/L Alkaline Phosphatase 94 (38-126) U/L Troponin I (0.000-0.034) ng/mL NT-Pro-B Natriuret Pep pg/mL Total Protein 6.8 (6.3-8.2) g/dL Albumin 4.0 (3.5-5.0) g/dL Urine Color Urine Appearance (Clear) Urine pH (5.0-8.0) Ur Specific [place] (1.001-1.035) Urine Protein (Negative) Urine Glucose (UA) (Negative) Urine Ketones (Negative) Urine Blood (Negative) Urine Nitrite (Negative) Urine Bilirubin (Negative) Urine Urobilinogen (<2.0) mg/dL Ur Leukocyte Esterase (Negative) Urine RBC (0-5) /hpf Urine WBC (0-5) /hpf Ur Squamous Epith Cells (0-4) /hpf Urine Mucus (None) /hpf 06/01/20 06/01/20 06/01/20 Range/Units 19:25 19:25 19:25 WBC (3.8-10.6) k/uL RBC (3.80-5.40) m/uL Hgb (11.4-16.0) gm/dL Hct (34.0-46.0) % MCV (80.0-100.0) fL MCH (25.0-35.0) pg MCHC (31.0-37.0) g/dL RDW (11.5-15.5) % Plt Count (150-450) k/uL Neutrophils % % Lymphocytes % % Monocytes % % Eosinophils % % Basophils % % Neutrophils # (1.3-7.7) k/uL Lymphocytes # (1.0-4.8) k/uL Monocytes # (0-1.0) k/uL Eosinophils # (0-0.7) k/uL Basophils # (0-0.2) k/uL PT (9.0-12.0) sec INR (<1.2) APTT (22.0-30.0) sec Sodium (137-145) mmol/L Potassium (3.5-5.1) mmol/L Chloride (98-107) mmol/L Carbon Dioxide (22-30) mmol/L Anion Gap mmol/L BUN (7-17) mg/dL Creatinine (0.52-1.04) mg/dL Est GFR (CKD-EPI)AfAm (>60 ml/min/1.73 sqM) Est GFR (CKD-EPI)NonAf (>60 ml/min/1.73 sqM) Glucose (74-99) mg/dL Lactic Ac Sepsis Rflx Plasma Lactic Acid Manan 2.3 H* (0.7-2.0) mmol/L Calcium (8.4-10.2) mg/dL Magnesium (1.6-2.3) mg/dL Total Bilirubin (0.2-1.3) mg/dL AST (14-36) U/L ALT (4-34) U/L Alkaline Phosphatase (38-126) U/L Troponin I <0.012 (0.000-0.034) ng/mL NT-Pro-B Natriuret Pep 134 pg/mL Total Protein (6.3-8.2) g/dL Albumin (3.5-5.0) g/dL Urine Color Urine Appearance (Clear) Urine pH (5.0-8.0) Ur Specific [place] (1.001-1.035) Urine Protein (Negative) Urine Glucose (UA) (Negative) Urine Ketones (Negative) Urine Blood (Negative) Urine Nitrite (Negative) Urine Bilirubin (Negative) Urine Urobilinogen (<2.0) mg/dL Ur Leukocyte Esterase (Negative) Urine RBC (0-5) /hpf Urine WBC (0-5) /hpf Ur Squamous Epith Cells (0-4) /hpf Urine Mucus (None) /hpf 06/01/20 06/01/20 Range/Units 20:00 20:38 WBC (3.8-10.6) k/uL RBC (3.80-5.40) m/uL Hgb (11.4-16.0) gm/dL Hct (34.0-46.0) % MCV (80.0-100.0) fL MCH (25.0-35.0) pg MCHC (31.0-37.0) g/dL RDW (11.5-15.5) % Plt Count (150-450) k/uL Neutrophils % % Lymphocytes % % Monocytes % % Eosinophils % % Basophils % % Neutrophils # (1.3-7.7) k/uL Lymphocytes # (1.0-4.8) k/uL Monocytes # (0-1.0) k/uL Eosinophils # (0-0.7) k/uL Basophils # (0-0.2) k/uL PT (9.0-12.0) sec INR (<1.2) APTT (22.0-30.0) sec Sodium (137-145) mmol/L Potassium (3.5-5.1) mmol/L Chloride (98-107) mmol/L Carbon Dioxide (22-30) mmol/L Anion Gap mmol/L BUN (7-17) mg/dL Creatinine (0.52-1.04) mg/dL Est GFR (CKD-EPI)AfAm (>60 ml/min/1.73 sqM) Est GFR (CKD-EPI)NonAf (>60 ml/min/1.73 sqM) Glucose (74-99) mg/dL Lactic Ac Sepsis Rflx Y Plasma Lactic Acid Manan (0.7-2.0) mmol/L Calcium (8.4-10.2) mg/dL Magnesium (1.6-2.3) mg/dL Total Bilirubin (0.2-1.3) mg/dL AST (14-36) U/L ALT (4-34) U/L Alkaline Phosphatase (38-126) U/L Troponin I (0.000-0.034) ng/mL NT-Pro-B Natriuret Pep pg/mL Total Protein (6.3-8.2) g/dL Albumin (3.5-5.0) g/dL Urine Color Yellow Urine Appearance Cloudy H (Clear) Urine pH 5.5 (5.0-8.0) Ur Specific [place] 1.023 (1.001-1.035) Urine Protein Negative (Negative) Urine Glucose (UA) Negative (Negative) Urine Ketones Negative (Negative) Urine Blood Negative (Negative) Urine Nitrite Negative (Negative) Urine Bilirubin Negative (Negative) Urine Urobilinogen <2.0 (<2.0) mg/dL Ur Leukocyte Esterase Large H (Negative) Urine RBC 9 H (0-5) /hpf Urine WBC 116 H (0-5) /hpf Ur Squamous Epith Cells 3 (0-4) /hpf Urine Mucus Occasional H (None) /hpf Disposition Clinical Impression: UTI (urinary tract infection), Weakness Disposition: HOME SELF-CARE Condition: Stable Instructions (If sedation given, give patient instructions): Urinary Tract Infection in Women (ED) Additional Instructions: Please return to the Emergency Department if symptoms worsen or any other concerns. CT scan of brain and Chest XRay was normal today. Take antibiotic as prescribed for UTI. Increase water intake over the next few days. Follow-up with PCP in 1-3 days. Prescriptions: Cephalexin [Keflex] 500 mg PO BID 7 Days #14 cap Is patient prescribed a controlled substance at d/c from ED?: No Referrals: Miesha George MD [Primary Care Provider] - 1-2 days
[2020-06-01 19:52] LABS: ALT 12 U/L (4-34); AST 20 U/L (14-36); African American GFR (CKD) >90 (>60 ml/min/1.73 sqM); Alkaline Phosphatase 94 U/L (38-126); Anion Gap 8 mmol/L; Blood Urea Nitrogen 18 mg/dL (7-17); Calcium 9.5 mg/dL (8.4-10.2); Carbon Dioxide 26 mmol/L (22-30); Chloride 103 mmol/L (98-107); Glucose 137 mg/dL (74-99); Magnesium 2.1 mg/dL (1.6-2.3); Non-African American GFR(CKD) >90 (>60 ml/min/1.73 sqM); Sodium 137 mmol/L (137-145); Total Bilirubin 0.3 mg/dL (0.2-1.3); Total Protein 6.8 g/dL (6.3-8.2)
[2020-06-01 19:55] LABS: INR 0.9 (<1.2); Partial Thromboplastin Time 23.2 sec (22.0-30.0); Prothrombin Time 9.6 sec (9.0-12.0)
--- NOTE | 2020-06-01 20:07 | CT ---
EXAMINATION TYPE: CT brain wo con DATE OF EXAM: 06/01/2020 COMPARISON: 05/10/2017 HISTORY: dizziness, weakness CT DLP: 1129.4 mGycm Automated exposure control for dose reduction was used. There is cerebral cortical atrophy. There is no mass effect nor midline shift. There is no sign of in tracranial hemorrhage. The calvarium is intact. IMPRESSION: Cerebral atrophy. No acute intracranial abnormality. No change.
--- NOTE | 2020-06-01 20:09 | XR ---
EXAMINATION TYPE: XR chest 2V DATE OF EXAM: 06/01/2020 COMPARISON: NONE HISTORY: Pain Weakness TECHNIQUE: 2 views FINDINGS: There is some atelectasis at the lung bases. Heart size is normal. There is no heart failure. There a re chest leads. Bony thorax is intact. IMPRESSION: Mild patchy subsegmental atelectasis is slightly increased compared to old exam. Normal h eart.
[2020-06-01 20:10] LABS: Potassium 4.6 mmol/L (3.5-5.1)
[2020-06-01 20:40] VITALS: RESP 12
[2020-06-01 20:45] LABS: Appearance,Urine Cloudy (Clear); Bilirubin,Urine Negative (Negative); Blood,Urine Negative (Negative); Color,Urine Yellow; Glucose,Urine (UA) Negative (Negative); Ketones,Urine Negative (Negative); Leukocyte Esterase,Urine Large (Negative); Mucus,Urine Occasional /hpf; Nitrite,Urine Negative (Negative); PH, Urine 5.5 (5.0-8.0); Protein,Urine Negative (Negative); RBC,Urine 9 /hpf (0-5); Specific Gravity,Urine 1.023 (1.001-1.035); Squamous Epithelial Cell,Urine 3 /hpf (0-4); Urobilinogen,Urine <2.0 mg/dL (<2.0); WBC,Urine 116 /hpf (0-5)
[2020-06-01] MEDS ORDERED: cefTRIAXone IN SWFI 1,000 MG/10 ML SYRINGE IVP STA (21:36)
[2020-06-01 22:00] VITALS: BP 128/91; PULSE 73
== END 2020-06-01 22:18 | disposition home or self-care (01) ==
LOC: EC 18:28
DX: R53.1 Weakness (principal); N39.0 Urinary tract infection, site not specified; J44.9 Chronic obstructive pulmonary disease, unspecified; E78.5 Hyperlipidemia, unspecified; E07.9 Disorder of thyroid, unspecified; F31.9 Bipolar disorder, unspecified; I25.2 Old myocardial infarction; F17.200 Nicotine dependence, unspecified, uncomplicated; Z79.890 Hormone replacement therapy; Z79.899 Other long term (current) drug therapy; Z79.82 Long term (current) use of aspirin; Z88.1 Allergy status to other antibiotic agents; Z88.5 Allergy status to narcotic agent; Z88.8 Allergy status to other drugs, medicaments and biological substances
CPT/HCPCS: 36415; 93005; 83880; 80053; 83605; 83735; 84484; 85025; 85610; 85730; 81001; 87086; 71046; 70450; 99285; 96374; J0696

== ENCOUNTER → 2020-11-10 | Outpatient (CLI) | payer MEDICARE, OTHER ==
--- NOTE | 2020-11-10 14:18 | XR ---
EXAMINATION TYPE: XR shoulder complete RT DATE OF EXAM: 11/10/2020 Comparison: 06/16/2017 Clinical History: 70-year-old female R52 R shoulder pain Findings: There is progressive end-stage degenerative change of the right glenohumeral joint with [id number] articulation, subchondral sclerosis, and bulky marginal osteophytosis. The acromial clavicular joint appears intact. Subacromial space appears maintained. Visualized right hemithorax is clear. Impression: End-stage [id number] right glenohumeral joint OA with bulky marginal spurring progressed from 2016.
== END | disposition home or self-care (01) ==
LOC: RADXRMAIN 12:42
PROVIDERS: ATTEND Internal Medicine
DX: M19.011 Primary osteoarthritis, right shoulder (principal); M77.8 Other enthesopathies, not elsewhere classified

== ENCOUNTER 2021-05-25 10:25 | Emergency (ER) | payer MEDICARE, OTHER ==
[2021-05-25 11:02] VITALS: TEMP 97.8
[2021-05-25] MEDS ORDERED: ACETAMINOPHEN TAB 325 MG TAB PO STA (12:02)
[2021-05-25] MEDS ORDERED: ONDANSETRON 4 MG/2 ML VIAL IVP STA (12:02)
[2021-05-25] MEDS ORDERED: SODIUM CHLORIDE 0.9% 1,000 ML IV STA (12:02)
[2021-05-25 12:24] LABS: Basophils % (A) 0 %; Eosinophils # (A) 0.1 k/uL (0-0.7); Eosinophils % (A) 1 %; HCT 48.3 % (34.0-46.0); HGB 16.1 gm/dL (11.4-16.0); Lymphocytes # (A) 2.6 k/uL (1.0-4.8); Lymphocytes % (A) 23 %; MCHC 33.4 g/dL (31.0-37.0); Mean Platelet Volume 9.3; Monocytes # (A) 0.7 k/uL (0-1.0); Monocytes % (A) 6 %; Neutrophils # (A) 7.4 k/uL (1.3-7.7); Neutrophils % (A) 67 %; Platelet Count 227 k/uL (150-450); RBC 5.36 m/uL (3.80-5.40); RDW 13.4 % (11.5-15.5); WBC 11.1 k/uL (3.8-10.6)
[2021-05-25 12:26] LABS: Appearance,Urine Clear (Clear); Bilirubin,Urine Negative (Negative); Blood,Urine Negative (Negative); Color,Urine Light Yellow; Glucose,Urine (UA) Negative (Negative); Ketones,Urine Negative (Negative); Leukocyte Esterase,Urine Negative (Negative); Nitrite,Urine Negative (Negative); PH, Urine 6.5 (5.0-8.0); Protein,Urine Negative (Negative); Specific Gravity,Urine 1.008 (1.001-1.035); Urobilinogen,Urine <2.0 mg/dL (<2.0)
[2021-05-25 12:41] LABS: ALT 22 U/L (4-34); AST 32 U/L (14-36); African American GFR (CKD) >90 (>60 ml/min/1.73 sqM); Albumin 4.1 g/dL (3.5-5.0); Alkaline Phosphatase 74 U/L (38-126); Amylase 49 U/L (30-110); Anion Gap 11 mmol/L; Blood Urea Nitrogen 18 mg/dL (7-17); Carbon Dioxide 25 mmol/L (22-30); Chloride 99 mmol/L (98-107); Glucose 135 mg/dL (74-99); Lipase 101 U/L (23-300); Non-African American GFR(CKD) >90 (>60 ml/min/1.73 sqM); Potassium 3.9 mmol/L (3.5-5.1); Sodium 135 mmol/L (137-145); Total Bilirubin 0.7 mg/dL (0.2-1.3); Total Protein 7.2 g/dL (6.3-8.2)
[2021-05-25 12:50] LABS: Glucose,Whole Blood 112 mg/dL (75-99)
--- NOTE | 2021-05-25 13:00 | XR ---
KUB HISTORY: Nausea and abdominal pain Frontal KUB submitted on 2 images Lung bases are clear. There is no evident bowel obstruction or pneumoperitoneum. Multiple calcificati ons in the pelvis are felt likely to represent phleboliths. Bone mineralization is reduced. Question some air-fluid levels on the upright exam in the right lower quadrant although there is no bowel dist ention. Osteoarthritic changes present within the left hip. Degenerative disc changes and spinal curv ature noted in the visualized lumbar spine. IMPRESSION: There may be underlying enteritis, follow-up as indicated. Additional findings above.
--- NOTE | 2021-05-25 13:07 | ED ---
Abdominal Pain HPI - General Chief Complaint: Abdominal Pain Stated Complaint: abd pain, nausea, weakness Time Seen by Provider: 05/25/21 11:57 Source: patient, RN notes reviewed Mode of arrival: wheelchair Limitations: physical limitation - History of Present Illness Initial Comments: Patient is a 70-year-old female that presents to emergency room complaining of a one-week history of abdominal discomfort. She notes she seen by her primary care physician who gave her a proton pump inhibitor. She notes this is not helping at she denied any aggravating or alleviating factors at this time. He notes the pain is approximately 5-6 out of 10 with no relief from at home medications. She notes that is constant. She notes she does have a significant history of IBS but denied any constipation or diarrhea recently. She did have her appendix removed. Patient was otherwise well-appearing while laying in bed during exam and interview. She denied any chest pain shortness of breath headache nausea vomiting diarrhea constipation fever fatigue chills. - Related Data Home Medications Medication Instructions Recorded Confirmed Divalproex Sodium [Depakote] 1,000 mg PO HS 05/10/17 09/11/19 Simvastatin [Zocor] 20 mg PO HS 05/10/17 09/11/19 Vit C/E/Zn/Coppr/Lutein/Zeaxan 1 cap PO BID 05/10/17 09/11/19 [Preservision Areds 2 Softgel] Aspirin EC [Ecotrin Low Dose] 81 mg PO DAILY 05/28/18 09/11/19 Calcium Carbonate [Calcium] 600 mg PO DAILY 05/28/18 09/11/19 Cholecalciferol [Vitamin D3 (25 5,000 unit PO DAILY 05/28/18 09/11/19 Mcg = 1000 Iu)] Levothyroxine Sodium [Synthroid] 100 mcg PO DAILY 05/29/18 09/11/19 ARIPiprazole [Abilify] 5 mg PO HS 07/01/19 09/11/19 Benztropine Mesylate [Cogentin] 0.5 mg PO BID 07/04/19 09/11/19 Albuterol Inhaler (Mhu) [Ventolin 2 puff INHALATION RT-Q6H PRN 09/11/19 09/11/19 Hfa Inhaler] Furosemide [Lasix] 20 mg PO DAILY 01/28/20 01/28/20 Previous Rx's Medication Instructions Recorded Meclizine [Antivert] 25 mg PO TID #20 tab 03/27/20 Cephalexin [Keflex] 500 mg PO BID 7 Days #14 cap 06/01/20 Allergies Allergy/AdvReac Type Severity Reaction Status Date / Time azithromycin [From Zithromax] Allergy Rash/Hives Verified 05/25/21 11:02 codeine Allergy Unknown Verified 05/25/21 11:02 diphenhydramine Allergy Confusion Verified 05/25/21 11:02 [From Benadryl] erythromycin base Allergy Rash/Hives Verified 05/25/21 11:02 thiopental Allergy Unknown Verified 05/25/21 11:02 Childhood Review of Systems ROS Statement: Those systems with pertinent positive or pertinent negative responses have been documented in the HPI. ROS Other: All systems not noted in ROS Statement are negative. Past Medical History Past Medical History: COPD, CVA/TIA, GERD/Reflux, Hyperlipidemia, Myocardial Infarction (DC), Seizure Disorder, Thyroid Disorder Additional Past Medical History / Comment(s): IBS, graves Last Myocardial Infarction Date:: 2016 History of Any Multi-Drug Resistant Organisms: CRE Date of last positivie culture/infection: 08/06/20 MDRO-CRE [facility]apenmase-[facility] MDRO Source:: Urine Past Surgical History: Appendectomy, Hysterectomy Additional Past Surgical History / Comment(s): thyroid burned out r/t graves disease Past Psychological History: Anxiety, Bipolar, Depression Smoking Status: Former smoker Past Alcohol Use History: Rare Past Drug Use History: None Reported - Past Family History Father Family Medical History: Pulmonary Embolus Additional Family Medical History / Comment(s): at age of 40 in mva Mother Family Medical History: Dementia Additional Family Medical History / Comment(s): at age 87, possible breast CA. Sister(s) Family Medical History: Cancer Additional Family Medical History / Comment(s): at age 73 of leukemia; other sister has had brain surgery and migraines; other sister has IBS and thyroid disorder. Brother(s) Family Medical History: Diabetes Mellitus Additional Family Medical History / Comment(s): other brother has DM as well. General Exam Limitations: physical limitation General appearance: alert, in no apparent distress, obese Head exam: Present: atraumatic, normocephalic, normal inspection Eye exam: Present: normal appearance, PERRL, EOMI. Absent: scleral icterus, conjunctival injection, periorbital swelling Neck exam: Present: normal inspection Respiratory exam: Present: normal lung sounds bilaterally. Absent: respiratory distress, wheezes, rales, rhonchi, stridor Cardiovascular Exam: Present: regular rate, normal rhythm, normal heart sounds. Absent: systolic murmur, diastolic murmur, rubs, gallop, clicks GI/Abdominal exam: Present: soft, tenderness (Generalized throughout), normal bowel sounds. Absent: distended, guarding, rebound, rigid Extremities exam: Present: normal inspection, full ROM, normal capillary refill. Absent: tenderness, pedal edema, joint swelling, calf tenderness Neurological exam: Present: alert, oriented X3 Psychiatric exam: Present: normal affect, normal mood Course Vital Signs 05/25/21 10:58 Temperature 97.8 F Pulse Rate 71 Respiratory 18 Rate Blood Pressure 123/85 O2 Sat by Pulse 94 L Oximetry Medical Decision Making - Medical Decision Making 70-year-old female complaining of abdominal pain for the past week. Labs, 1 L normal saline, KUB, 650 mg of Tylenol ordered. Labs unremarkable, shows dehydration with a mildly elevated hematocrit hemoglobin and white count. KUB shows possible enteritis. Case discussed with Dr. Garza, patient discharge home with follow up primary care and continuing using a proton pump inhibitor. - Lab Data Result diagrams: 05/25/21 12:08 05/25/21 12:08 Lab Results 05/25/21 05/25/21 05/25/21 Range/Units 12:08 12:08 12:08 WBC 11.1 H (3.8-10.6) k/uL RBC 5.36 (3.80-5.40) m/uL Hgb 16.1 H (11.4-16.0) gm/dL Hct 48.3 H (34.0-46.0) % MCV 90.0 (80.0-100.0) fL MCH 30.0 (25.0-35.0) pg MCHC 33.4 (31.0-37.0) g/dL RDW 13.4 (11.5-15.5) % Plt Count 227 (150-450) k/uL MPV 9.3 Neutrophils % 67 % Lymphocytes % 23 % Monocytes % 6 % Eosinophils % 1 % Basophils % 0 % Neutrophils # 7.4 (1.3-7.7) k/uL Lymphocytes # 2.6 (1.0-4.8) k/uL Monocytes # 0.7 (0-1.0) k/uL Eosinophils # 0.1 (0-0.7) k/uL Basophils # 0.0 (0-0.2) k/uL Sodium 135 L (137-145) mmol/L Potassium 3.9 (3.5-5.1) mmol/L Chloride 99 (98-107) mmol/L Carbon Dioxide 25 (22-30) mmol/L Anion Gap 11 mmol/L BUN 18 H (7-17) mg/dL Creatinine 0.59 (0.52-1.04) mg/dL Est GFR (CKD-EPI)AfAm >90 (>60 ml/min/1.73 sqM) Est GFR (CKD-EPI)NonAf >90 (>60 ml/min/1.73 sqM) Glucose 135 H (74-99) mg/dL POC Glucose (mg/dL) (75-99) mg/dL POC Glu Hides And Skins Colorer ID Calcium 10.0 (8.4-10.2) mg/dL Total Bilirubin 0.7 (0.2-1.3) mg/dL AST 32 (14-36) U/L ALT 22 (4-34) U/L Alkaline Phosphatase 74 (38-126) U/L Total Protein 7.2 (6.3-8.2) g/dL Albumin 4.1 (3.5-5.0) g/dL Amylase 49 (30-110) U/L Lipase 101 (23-300) U/L Urine Color Light Yellow Urine Appearance Clear (Clear) Urine pH 6.5 (5.0-8.0) Ur Specific [place]ola 1.008 (1.001-1.035) Urine Protein Negative (Negative) Urine Glucose (UA) Negative (Negative) Urine Ketones Negative (Negative) Urine Blood Negative (Negative) Urine Nitrite Negative (Negative) Urine Bilirubin Negative (Negative) Urine Urobilinogen <2.0 (<2.0) mg/dL Ur Leukocyte Esterase Negative (Negative) 05/25/21 Range/Units 12:46 WBC (3.8-10.6) k/uL RBC (3.80-5.40) m/uL Hgb (11.4-16.0) gm/dL Hct (34.0-46.0) % MCV (80.0-100.0) fL MCH (25.0-35.0) pg MCHC (31.0-37.0) g/dL RDW (11.5-15.5) % Plt Count (150-450) k/uL MPV Neutrophils % % Lymphocytes % % Monocytes % % Eosinophils % % Basophils % % Neutrophils # (1.3-7.7) k/uL Lymphocytes # (1.0-4.8) k/uL Monocytes # (0-1.0) k/uL Eosinophils # (0-0.7) k/uL Basophils # (0-0.2) k/uL Sodium (137-145) mmol/L Potassium (3.5-5.1) mmol/L Chloride (98-107) mmol/L Carbon Dioxide (22-30) mmol/L Anion Gap mmol/L BUN (7-17) mg/dL Creatinine (0.52-1.04) mg/dL Est GFR (CKD-EPI)AfAm (>60 ml/min/1.73 sqM) Est GFR (CKD-EPI)NonAf (>60 ml/min/1.73 sqM) Glucose (74-99) mg/dL POC Glucose (mg/dL) 112 H (75-99) mg/dL POC Glu Hides And Skins Colorer ID Raghu Byrne Calcium (8.4-10.2) mg/dL Total Bilirubin (0.2-1.3) mg/dL AST (14-36) U/L ALT (4-34) U/L Alkaline Phosphatase (38-126) U/L Total Protein (6.3-8.2) g/dL Albumin (3.5-5.0) g/dL Amylase (30-110) U/L Lipase (23-300) U/L Urine Color Urine Appearance (Clear) Urine pH (5.0-8.0) Ur Specific Neola (1.001-1.035) Urine Protein (Negative) Urine Glucose (UA) (Negative) Urine Ketones (Negative) Urine Blood (Negative) Urine Nitrite (Negative) Urine Bilirubin (Negative) Urine Urobilinogen (<2.0) mg/dL Ur Leukocyte Esterase (Negative) - Radiology Data Radiology results: report reviewed, image reviewed KUB: There may be underlying enteritis, follow-up is indicated. Disposition Clinical Impression: Enteritis Disposition: HOME SELF-CARE Condition: Stable Instructions (If sedation given, give patient instructions): Enteritis (ED) Additional Instructions: Please return to the Emergency Department if symptoms worsen or any other concerns. Follow-up with primary care 1-2 days. Continue at home medications as prescribed. [place]oke diet for age digestion. Is patient prescribed a controlled substance at d/c from ED?: No Referrals: Miesha George MD [Primary Care Provider] - 1-2 days Time of Disposition: 13:07
[2021-05-25] MEDS ORDERED: ONDANSETRON 4 MG ODT STARTER PACK 2 TAB BTL PO STA (13:11)
[2021-05-25 13:31] VITALS: BP 111/55; PULSE 65; RESP 16
== END 2021-05-25 13:32 | disposition home or self-care (01) ==
LOC: EC 10:25
DX: K52.9 Noninfective gastroenteritis and colitis, unspecified (principal); J44.9 Chronic obstructive pulmonary disease, unspecified; E78.5 Hyperlipidemia, unspecified; I25.2 Old myocardial infarction; G40.909 Epilepsy, unspecified, not intractable, without status epilepticus; K21.9 Gastro-esophageal reflux disease without esophagitis; F41.9 Anxiety disorder, unspecified; F31.9 Bipolar disorder, unspecified; Z86.73 Personal history of transient ischemic attack (TIA), and cerebral infarction without residual deficits; Z87.891 Personal history of nicotine dependence; Z79.82 Long term (current) use of aspirin; Z79.51 Long term (current) use of inhaled steroids
CPT/HCPCS: 36415; 80053; 82150; 83690; 85025; 81003; 74018; 99285; 96374; 96361; J2405; S0119

== ENCOUNTER → 2021-06-23 | Outpatient (CLI) | payer MEDICARE, OTHER ==
--- NOTE | 2021-06-23 09:03 | US ---
EXAMINATION TYPE: US abdomen complete DATE OF EXAM: 06/23/2021 COMPARISON: Renal ultrasound 2017 CLINICAL HISTORY: pain. abd pain and nausea x 3 weeks EXAM MEASUREMENTS: Liver Length: 17.5 cm Gallbladder Wall: 0.2 cm CBD: 1.1 cm Spleen: 9.3 cm Right Kidney: 11.2 x 4.4 x 4.1cm Left Kidney: 10.9 x 3.7 x 5.3 cm Pancreas: portions seen appear wnl Liver: 1.1cm posterior right lobe cyst Gallbladder: wnl Evidence for sonographic Blankenship's sign: no CBD: dilated with no obvious obstruction Spleen: wnl Right Kidney: 1.6cm inferior pole cyst Left Kidney: wnl Upper IVC: wnl Abd Aorta: wnl The visualized liver is slightly heterogeneous with 1.0 cm benign thin-walled cyst in the right hepat ic lobe. The intrahepatic portion of the IVC and visualized proximal and mid abdominal aorta are wit hin normal limits. There is no evidence of cholelithiasis. Common bile duct is mild to moderately d ilated without extra hepatic biliary dilatation. The visualized portions of the pancreas are homogen ous. The spleen is unremarkable. Kidneys are symmetric and free of hydronephrosis. Incidental 1.6 c m benign thin-walled cyst right kidney midpole level laterally. IMPRESSION: Source of pain and nausea not identified. Mild to moderate extra hepatic ductal dilatatio n noted. Advise further workup with MRI/MRCP if possible. Otherwise contrast-enhanced CT abdomen shou ld be considered.
--- NOTE | 2021-06-23 09:04 | US ---
EXAMINATION TYPE: US pelvic complete DATE OF EXAM: 06/23/2021 COMPARISON: NONE CLINICAL HISTORY: R10.84 ABDOMINAL PAIN. abd pain and nausea, h/o hysterectomy TECHNIQUE: TA. Transabdominal sonographic images of the pelvis were acquired Date of LMP: 30 years ago EXAM MEASUREMENTS: Uterus: Surgically absent Endometrial Stripe: Surgically absent Right Ovary: not seen Left Ovary: not seen 1. Uterus: Surgically absent 2. Endometrium: Surgically absent 3. Right Ovary: not seen due to bowel gas and or atrophy 4. Left Ovary: not seen due to bowel gas and or atrophy 5. Bilateral Adnexa: wnl 6. Posterior cul-de-sac: wnl Uterus is surgically absent. No free fluid. No abnormal or abnormal ovaries. No adnexal masses. Poorl y distended bladder. IMPRESSION: Unremarkable study.
== END | disposition home or self-care (01) ==
LOC: RADUSWWP 07:05
PROVIDERS: ATTEND Internal Medicine
DX: R10.9 Unspecified abdominal pain (principal); R11.0 Nausea; K76.89 Other specified diseases of liver; Z90.710 Acquired absence of both cervix and uterus
CPT/HCPCS: 76700; 76856

== ENCOUNTER → 2021-07-25 | Outpatient (CLI) | payer MEDICARE, OTHER | LOC: RADMRIMAIN 07:12 | PROVIDERS: ATTEND Internal Medicine | DX: Z53.9 Procedure and treatment not carried out, unspecified reason (principal) ==

== ENCOUNTER → 2021-08-17 | Outpatient (CLI) | payer MEDICARE, OTHER ==
--- NOTE | 2021-08-18 01:32 | MR ---
EXAMINATION TYPE: MR brain wo/w con DATE OF EXAM: 08/17/2021 COMPARISON: 12/08/2018 HISTORY: Parkinsons and weakness CONTRAST: Standard multiplanar, multisequence MRI departmental protocol images were obtained without contrast a nd with 7 mL intravenous Gadavist gadolinium contrast. There is cerebral cortical atrophy. There is no mass effect or midline shift. There is no evidence of intracranial hemorrhage. There is some coalescent increased signal in the periventricular white manju er measuring up to 1 cm in thickness on T2 and FLAIR images. The brainstem is intact. Cerebellum is i ntact. Diffusion images show no evidence of an acute infarct. Sella turcica appears normal. There is some thinning of the corpus callosum. There is no evidence of orbital mass. Contrast images show no pathologic enhancement. There is normal enhancement of the venous sinuses. IMPRESSION: Interval atrophy and periventricular white matter changes probably related to chronic small vessel is chemia. Demyelinating disease is not excluded. No significant change compared to the old exam. No andrei dence of cortical infarct.
== END | disposition home or self-care (01) ==
LOC: RADMRIMAIN 08-12 17:21
PROVIDERS: ATTEND Psychiatry & Neurology Neurology
DX: G31.9 Degenerative disease of nervous system, unspecified (principal); G20 Parkinson's disease
CPT/HCPCS: 70553; A9585

== ENCOUNTER → 2021-09-13 | Outpatient (CLI) | payer MEDICARE, OTHER ==
--- NOTE | 2021-09-13 11:10 | MR ---
MRCP: HISTORY: Abdominal pain. COMPARISON: None. TECHNIQUE: Multiecho multiplanar images of the abdomen were obtained according to the MRCP protocol. FINDINGS: The gallbladder is normal without gallstones, wall thickening, distention or pericholecystic fluid. T he extrahepatic duct is prominent to the level of the ampulla measuring 11 mm. There is no pancreatic ductal dilatation or pancreatic head mass. The possibility of a small ampullary mass cannot be entir julissa excluded. The pancreas does appear atrophic. The spleen and adrenal glands are normal. There are a few scattered simple hepatic cysts. There is no hydronephrosis or solid renal mass. There is a simple cortical cyst of the posterior righ t kidney. The caliber of the abdominal aorta is normal. Visualized bowel loops are normal. There is no free intraperitoneal air or fluid. IMPRESSION: 1. Prominent extrahepatic bile duct to the level of the ampulla. No filling defects are seen to sugge st choledocholithiasis. A small ampullary mass cannot be entirely excluded. 2. Atrophic pancreas with no dilatation of the pancreatic duct or pancreatic mass. 3. Scattered small hepatic cysts. 4. Normal gallbladder 5. ERCP may be of benefit in this patient
== END | disposition home or self-care (01) ==
LOC: RADMRIMAIN 09:48
PROVIDERS: ATTEND Internal Medicine
DX: K86.89 Other specified diseases of pancreas (principal); K76.89 Other specified diseases of liver
CPT/HCPCS: 74181

== ENCOUNTER → 2023-02-22 | Outpatient (CLI) | payer OTHER ==
--- NOTE | 2023-02-24 08:45 | MM ---
Reason for Exam: Screening (asymptomatic). Last mammogram was performed 1 year(s) and 3 month(s) ago. Patient History: Menarche at age 11. First Full-Term at age 16. Hysterectomy at age 26. Risk Values: Margaret 5 year model risk: 1.3%. NCI Lifetime model risk: 3.0%. Prior Study Comparison: 08/21/2020 Bilateral Screening Mammogram, [facility]. 10/29/2021 Bilateral Screening Mammogram, [facility]. 11/25/2021 Right Diagnostic Mammogram, [facility]. Tissue Density: There are scattered fibroglandular densities. Findings: Analyzed By CAD. There is no suspicious group of microcalcifications or new suspicious mass in either breast. Overall Assessment: Benign, BI-RAD 2 Management: Screening Mammogram of both breasts in 1 year. . Patient should continue monthly self-breast exams. A clinical breast exam by your physician is recommended on an annual basis. This exam should not preclude additional follow-up of suspicious palpable abnormalities. Note on Margaret scores and lifetime risk: 1. A Margaret score greater than 3% is considered moderate risk. If this is the case, consider specialist referral to assess eligibility for a risk reducing agent. 2. If overall lifetime risk for the development of breast cancer is 20% or higher, the patient may qualify for future screening with alternating mammogram and breast MRI. Electronically signed and approved by: Roque Aguirre M.D. Radiologis
== END | disposition home or self-care (01) ==
LOC: RADMAMWWP 13:08
PROVIDERS: ATTEND Emergency Medicine
DX: Z12.31 Encounter for screening mammogram for malignant neoplasm of breast (principal)
CPT/HCPCS: 77063; 77067

== ENCOUNTER → 2024-03-06 | Outpatient (CLI) | payer OTHER ==
--- NOTE | 2024-03-06 12:43 | CTL ---
EXAMINATION TYPE: CT Low Dose Lung DATE OF EXAM: 03/06/2024 12:18 PM CLINICAL INDICATION:Female, 73 years old with history of Z87.891 nicotine dependence; personal hx of tobacco use. 2 packs/ day x 25 years. Quit 3 years ago , history of tobacco use. COMPARISON: None. TECHNIQUE: Multiple axial non-contrast scans were obtained from approximately the lung apices through the upper abdomen. Coronal and sagittal reformatted images were obtained. Low dose technique was uti lized. CT DLP: 77.1 mGycm, Automated exposure control for dose reduction was used. CT Contrast: Contrast used: None Oral contrast used: None FINDINGS: ======== Lack of intravenous contrast and low dose technique limits the evaluation of the vascular and soft ti ssue structures. LUNGS: No evidence of pulmonary fibrosis. No evidence of focal consolidation, although a few areas of platelike atelectasis are present. No, pneumothorax or pleural effusion. Nodules: Small number of densely calcified granulomas. RUL: None. RML: None. RLL: None. WILI: None. LLL: None. AIRWAY: Patent and unremarkable. HEART: Size within normal limits. MEDIASTINUM: No gross evidence of adenopathy. VASCULATURE: No aortic aneurysm. MUSCULOSKELETAL: No acute osseous abnormalities SOFT TISSUES/LYMPH NODES: Unremarkable. LOWER NECK: No significant findings. UPPER ABDOMEN: No significant findings. IMPRESSION: 1. No clinically significant pulmonary nodules. CT LUNG RAD AND CT CHEST RECOMMENDATION: Lung-Rad 1 Negative: Continue annual screening with LDCT in 12 months. S Modifier (other clinically significant findings): None Recommend smoking cessation (if current smoker), or continuation of smoking cessation (if prior smoke r). Annual screening for lung cancer with low-dose computed tomography is recommended in adults ages 55 to 77 years who have a 30 pack-year smoking history and currently smoke or have quit within the pa st 15 years. Screening should be discontinued once a person has not smoked for 15 years or develops a health problem that substantially limits life expectancy or the ability or willingness to have curat maciel lung surgery. Lung rads 2021 [email or web address]
--- NOTE | 2024-03-07 10:30 | BD ---
EXAMINATION TYPE: Axial Bone Density DATE OF EXAM: 03/06/2024 CLINICAL HISTORY: 73 years old Female. ICD-10 CODE: Z78.0 Postmenopausal; Z12.2 screening Height: 4'11" Weight: unknown, pt in wheelchair FRAX RISK QUESTIONS: Family History (Parent hip fracture): yes History of Fracture in Adulthood: yes Secondary Osteoporosis: RISK FACTORS HISTORY OF: MEDICATIONS: Thyroid Medications: Which medication: Synthroid How Long: about 20 years EXAM MEASUREMENTS: Bone mineral densitometry was performed using the [employer] [place] System. Bone mineral density as measured about the Lumbar spine is: ----- L1-L4(G/cm2): 0.806 T Score Values are as follows: ----- L1: -3.1 ----- L2: -3.4 ----- L3: -3.7 ----- L4: -2.6 ----- L1-L4: -3.1 Z Score Values are as follows: ----- L1: -1.4 ----- L2: -1.7 ----- L3: -2.0 ----- L4: -0.9 ----- L1-L4: -1.4 Bone mineral density has: Decreased -9.0% since study of: 12-26-17 Bone mineral density about the R hip (g/cm2): 0.663 Bone mineral density about the L hip (g/cm2): 0.831 T Score values are as follows: -----R Neck: -2.5 -----L Neck: -4.0 -----R Total: -2.7 -----L Total: -1.4 Z Score values are as follows: -----R Neck: -0.6 -----L Neck: -2.1 -----R Total: -1.0 -----L Total: 0.3 Bone mineral density has: Decreased -16.5% since study of: 12-26-17 FRAX%s: The graph provided illustrates a 76.2% chance for a major osteoporotic fx and a 68.5% chance for the hips probability for fx in 10 years time. IMPRESSION: Osteoporosis (T Score less than -2.5). There is increased fracture risk and therapy is usually indicated based on age. Re-Screen 1-2 years. NOTE: T-SCORE=SD OF THE YOUNG ADULT MEAN.
== END | disposition home or self-care (01) ==
LOC: RADBDWWP 11:22
PROVIDERS: ATTEND Internal Medicine Hospice and Palliative Medicine
DX: Z12.2 Encounter for screening for malignant neoplasm of respiratory organs (principal); M85.89 Other specified disorders of bone density and structure, multiple sites; Z78.0 Asymptomatic menopausal state; F17.200 Nicotine dependence, unspecified, uncomplicated
CPT/HCPCS: 71271; 77080

== ENCOUNTER → 2025-02-05 | Outpatient (CLI) | payer OTHER ==
--- NOTE | 2025-02-05 11:45 | MM ---
Reason for Exam: Screening (asymptomatic). Last mammogram was performed 1 year(s) and 11 month(s) ago. Patient History: Menarche at age 11. First Full-Term at age 16. Hysterectomy at age 26. Postmenopausal. Patient has history of breast feeding. Risk Values: Margaret 5 year model risk: 1.3%. NCI Lifetime model risk: 2.6%. Prior Study Comparison: 08/21/2020 Bilateral Screening Mammogram, [facility]. 10/29/2021 Bilateral Screening Mammogram, [facility]. 11/25/2021 Right Diagnostic Mammogram, [facility]. 02/22/2023 Bilateral MG 3D screening mammo w/cad, [facility]. Tissue Density: The breasts are almost entirely fatty. Findings: Analyzed By CAD. CC views ONLY PATIENT TERMINATED EXAM. Right breast: There is no suspicious group of microcalcifications or new suspicious mass. Left breast: There is no suspicious group of microcalcifications or new suspicious mass. Overall Assessment: Negative, BI-RAD 1 Management: Screening Mammogram of both breasts in [address] [facility] will attempt to contact patient to return for supplemental views and ultrasound if indicated. Patient should continue monthly self-breast exams. A clinical breast exam by your physician is recommended on an annual basis. This exam should not preclude additional follow-up of suspicious palpable abnormalities. Note on Margaret scores and lifetime risk: 1. A Margaret score greater than 3% is considered moderate risk. If this is the case, consider specialist referral to assess eligibility for a risk reducing agent. 2. If overall lifetime risk for the development of breast cancer is 20% or higher, the patient may qualify for future screening with alternating mammogram and breast MRI. [facility], , 02/05/2025 11:41 AM. Electronically signed and approved by: Benny Tapia DO
== END | disposition home or self-care (01) ==
LOC: RADMAMWWP 10:40
PROVIDERS: ATTEND Internal Medicine Hospice and Palliative Medicine
DX: Z12.31 Encounter for screening mammogram for malignant neoplasm of breast (principal); R92.313 Mammographic fatty tissue density, bilateral breasts; Z78.0 Asymptomatic menopausal state
CPT/HCPCS: 77063; 77067